=== PATIENT | female | born 1960 | race Caucasian/White ===

== ENCOUNTER → 2017-11-26 15:48 | Outpatient (REF) | payer OTHER, SELFPAY ==
[2017-11-26 20:55] LABS: COMMENT (LAB VIEW ONLY) 34.25 mg/dL; Microalb ug/mg Crea 10.5 ug/mg Cr
== END ==
LOC: LBN 15:48
PROVIDERS: PCP Nurse Practitioner; Visit Provider Nurse Practitioner
DX: E11.311 Type 2 diabetes mellitus with unspecified diabetic retinopathy with macular edema (principal); Z79.4 Long term (current) use of insulin
CPT/HCPCS: 82043; 82570

== ENCOUNTER 2017-12-10 02:09 | Outpatient (CLI) | payer OTHER, SELFPAY ==
--- NOTE | 2017-12-10 15:33 | DI.RAD_ITS ---
SYMPTOMS/DIAGNOSIS: F/U PNEUMONIA, J18.1 PA AND LATERAL CHEST: Comparison is made with November,. There has been interval decrease in size of the previously noted right lower lobe infiltrate. A density does persist in this area. No new abnormalities are seen. There is no evidence of an effusion. IMPRESSION: Decrease in size of right lower lobe infiltrate.
== END 2017-12-10 02:29 ==
PROVIDERS: PCP Nurse Practitioner; Visit Provider Nurse Practitioner
DX: J18.1 Lobar pneumonia, unspecified organism (principal)
CPT/HCPCS: 71046

== ENCOUNTER 2017-12-22 00:30 | Outpatient (CLI) | payer OTHER, SELFPAY ==
--- NOTE | 2017-12-22 12:40 | DI.RAD_ITS ---
SYMPTOMS/DIAGNOSIS: F/U PNEUMONIA, J18.1; RIGHT SHOULDER PAIN, M25.511 PA AND LATERAL CHEST: Substantial clearing of a region of infiltration in the right lower lobe is demonstrated. The remainder of the lung is unremarkable. The cardiovascular structures are intact. RIGHT SHOULDER: The glenohumeral joint appears intact. Minimal degenerative changes involving the AC joint are identified. The examination is otherwise unremarkable.
== END 2017-12-22 00:50 ==
PROVIDERS: PCP Nurse Practitioner; Visit Provider Nurse Practitioner
DX: J18.1 Lobar pneumonia, unspecified organism (principal); M25.511 Pain in right shoulder; M19.011 Primary osteoarthritis, right shoulder
CPT/HCPCS: 71046; 73030

== ENCOUNTER 2017-12-25 12:10 | Outpatient (CLI) | payer OTHER, SELFPAY ==
[2017-12-25 12:34] LABS: HCT 39.9 % (36.0-46.0); HGB 13.5 g/dL (12.0-15.5); Mean Corp. HGB Concentration 33.8 g/dL (32.0-36.0); Mean Corpuscular Hemoglobin 31.1 pg (27.0-33.0); Mean Corpuscular Volume 91.9 fL (80-95); Platelet Count 262 x1000/uL (130-400); RBC 4.34 m/cumm (4.00-5.20); White Blood Cell Count 5.95 k/cumm (4.4-10.8)
[2017-12-25 13:13] LABS: ALT 23 U/L (12-78); AST 22 U/L (15-37); Albumin 3.8 g/dL (3.4-5.0); Alkaline Phosphatase 169 U/L (46-116); BUN 8 mg/dL (7-18); Bilirubin, Total 0.4 mg/dL (0.2-1.0); CREATININE 0.96 mg/dL (0.55-1.02); Calcium 9.4 mg/dL (8.5-10.1); Chloride 99 mmol/L (98-107); Cholesterol 208 mg/dL (50-200); Glucose 219 mg/dL (70-100); HDL Cholesterol 103 mg/dL (40-60); LDL CHOLESTEROL 91 mg/dL (<100); Sodium 137 mmol/L (136-145); TSH (W/Ref FT4) 2.32 uIU/mL (0.358-3.74); Total Protein 6.9 g/dL (6.4-8.2); Triglyceride 68 mg/dL (30-150)
== END 2017-12-25 12:30 ==
PROVIDERS: PCP Nurse Practitioner; Visit Provider Nurse Practitioner
DX: E11.311 Type 2 diabetes mellitus with unspecified diabetic retinopathy with macular edema (principal); Z79.4 Long term (current) use of insulin; M35.1 Other overlap syndromes; Z13.220 Encounter for screening for lipoid disorders
CPT/HCPCS: 36415; 80053; 80061; 83721; 85027; 84443

== ENCOUNTER 2018-02-16 00:26 | Outpatient (CLI) | payer OTHER, SELFPAY ==
--- NOTE | 2018-02-16 10:25 | DI.MRI_ITS ---
SYMPTOMS/DIAGNOSIS: RIGHT SHOULDER PAIN, M25.511, DECREASED RANGE OF MOTION, NUMBNESS/TINGLING IN HAND MRI OF THE RIGHT SHOULDER: Routine noncontrast examination was performed. There is hyperintense T2 signal in the intrasubstance of the supraspinatus tendon at its insertion onto the greater tuberosity, consistent with a partial tear. The infraspinatus, teres minor and subscapularis tendons are intact. The rotator cuff muscles show normal signal and size. No evidence of muscular fatty atrophy is identified. The biceps tendon has a normal appearance and location. The glenoid labrum appears grossly unremarkable, as is the articular cartilage at the glenohumeral joint. The ligaments appear intact. There are mild hypertrophic changes seen at the acromioclavicular joint. No findings to suggest an occult fracture or avascular necrosis are seen. No evidence of a soft tissue mass or focal fluid collection is appreciated. IMPRESSION: Partial intrasubstance tear of the supraspinatus tendon at its insertion onto the greater tuberosity.
== END 2018-02-16 00:46 ==
PROVIDERS: PCP Nurse Practitioner; Visit Provider Physician Assistant
DX: M25.111 Fistula, right shoulder (principal); M75.101 Unspecified rotator cuff tear or rupture of right shoulder, not specified as traumatic
CPT/HCPCS: 73221

== ENCOUNTER 2018-05-03 16:00 | Emergency (ER) | payer OTHER, SELFPAY ==
[2018-05-03 16:14] VITALS: BP 125/70; PULSE 73; RESP 14; TEMP 37.2; O2SAT 97
--- NOTE | 2018-05-03 17:00 | NUR.NOTE ---
patient refused IV MD aware Nursing Note:
[2018-05-03] MEDS: Gabapentin 300 MG CAP PO (17:04)
[2018-05-03] MEDS: oxyCODONE 5 MG TAB PO (17:04)
--- NOTE | 2018-05-03 17:04 | NUR.NOTE ---
patient medicated per MD order Nursing Note:
[2018-05-03 17:06] LABS: Abs Immature Grans 0.02 k/cumm (0.0-0.09); Absolute Basophil Count 0.02 k/cumm (0.0-0.2); Absolute Eosinophil Count 0.05 k/cumm (0.0-0.7); Absolute Lymphocyte Count 1.89 k/cumm (1.2-3.4); Absolute Monocyte Count 0.78 k/cumm (0.11-0.7); Absolute Neutrophil Count 5.83 k/cumm (1.2-6.7); Basophils % 0.2; Eosinophils % 0.6; HCT 39.9 % (36.0-46.0); HGB 14.2 g/dL (12.0-15.5); Immature Grans % 0.2; Mean Corp. HGB Concentration 35.6 g/dL (32.0-36.0); Mean Corpuscular Hemoglobin 31.7 pg (27.0-33.0); Mean Corpuscular Volume 89.1 fL (80-95); Mean Platelet Volume 9.6 fL (8.0-11.0); Monocytes % 9.1; Neutrophils % 67.9; Platelet Count 238 x1000/uL (130-400); RBC 4.48 m/cumm (4.00-5.20); RBC Distribution Width 12.9 % (11.7-14.6); White Blood Cell Count 8.59 k/cumm (4.4-10.8)
--- NOTE | 2018-05-03 17:06 | W.ED.GENAD ---
Discharge Plan Disposition Patient Disposition: HOME Discharge Details Chief Complaint: RashLesion Clinical Impression: Herpes zoster, Hyperglycemia Primary Care Provider: Imelda Beckman ED Provider: Naveed Bose Home Meds and New Rx's Prescriptions: New gabapentin [Neurontin] 300 mg capsule 300 mg PO BID Qty: 14 RF: 0 lidocaine 5 % adhesive patch,medicated 1 patch TP DAILY Qty: 10 RF: 0 Continued Humalog KwikPen Insulin 100 unit/mL insulin pen See Rx Instructions subcut as directed Qty: 15 RF: 12 Lantus Solostar U-100 Insulin 100 unit/mL (3 mL) insulin pen See Rx Instructions subcut HS Qty: 30 RF: 4 Lac-Hydrin Five 5 % lotion 1 applic TP BID Qty: 226 RF: 0 valacyclovir 1 gram tablet 1,000 mg PO TID 7 Days Qty: 21 RF: 0 Glucagon Emergency Kit (human) 1 MG kit 1 mg IJ PRN PRNRF: 0 acetaminophen [Tylenol] 325 MG tablet 325 mg PO PRN RF: 0 aspirin [Aspir-81] 81 MG tablet,delayed release (DR/EC) 81 mg PO DAILY RF: 0 fexofenadine 180 MG tablet 180 mg PO BID RF: 0 Symbicort 10.2 GM HFA aerosol inhaler 2 puff Inhalation BID Qty: 3 RF: 3 pen needle, diabetic [Pen Needle] 1 EACH needle 1 ea Miscellaneous qid and hs Qty: 540 RF: 4 levothyroxine 125 MCG tablet 250 mcg PO DAILY Qty: 180 RF: 3 hydroxychloroquine [Plaquenil] 200 MG tablet 200 mg PO BID RF: 0 esomeprazole magnesium [Nexium] 20 MG capsule,delayed release(DR/EC) 20 mg PO DAILY RF: 0 ibuprofen [Advil] 200 MG tablet 200 mg PO PRN PRNRF: 0 simvastatin 20 MG tablet 20 mg PO DAILY Qty: 90 RF: 3 venlafaxine 37.5 MG capsule,extended release 24hr 37.5 mg PO DAILY Qty: 90 RF: 4 triamcinolone acetonide 15 GM ointment 1 ricardo Topical PRN PRNRF: 0 OneTouch Ultra Test strip 1 ea Miscellaneous 6 X A DAY Qty: 540 RF: 3 ProAir HFA 8.5 GM HFA aerosol inhaler 2 puff Inhalation Q6H PRN Qty: 3 RF: 3 epinephrine 0.3 MG/0.3 ML auto-injector 0.3 mg IJ ONCE PRN (Reason: Anaphylaxis) Qty: 1 RF: 0 Discharge Instructions Instructions: Shingles (ED), Diabetic Hyperglycemia (ED) Additional Instructions: Please contact your primary care physician to arrange follow-up. Return to the ER for any worsening or new concerning symptoms. Referrals: Imelda Beckman NP [Primary Care Provider] - Medical Decision Making 17:17 -- 58-year-old female here with shingles for the past week, on valtrex and having severe painful rash and generally not feeling well. Vitals within normal limits. I will place lidocaine patch more proximally over the affected dermatome and give a dose of oxycodone here for pain. Plan to add Neurontin to her treatment. Patient did have some nausea and vomiting recently and generally does not feel well. Rapid flu testing was negative. Plan to check screening labs to assess for electrolyte abnormalities. 18:15 -- Labs reviewed and nondiagnostic. Hyperglycemia and mild hyponatremia noted. Results reviewed with patient. Plan to continue valacyclovir, start Neurontin, have the patient follow-up with her primary care physician. I encouraged her return for any worsening or new concerning symptoms. Usual customary discharge instructions were provided. HPI General Mode of arrival: ambulatory. Date/Time Provider Initiated Documentation: 05/03/18 16:17. Limitations to Documentation: no limitations. Information obtained by: patient. HPI Narrative: There is a 58-year-old female with multiple medical problems including type 2 diabetes, here with chief complaint of shingles pain. Patient notes that she developed a rash about a week ago, she was seen by her PCP on 04/27/2018, diagnosed with herpes zoster and started on valacyclovir. She is been taking valacyclovir as prescribed. She notes that she continues to have severe pain in the area where the rash is located on her right flank. She is also had some chills and is generally not feeling well. It is severe. No modifiers. Related Data Home Medications Medication Instructions Recorded Confirmed Glucagon Emergency Kit (human) 1 mg IJ PRN PRN kit 06/29/12 05/03/18 acetaminophen [Tylenol] 325 mg PO PRN 06/29/12 05/03/18 aspirin [Aspir-81] 81 mg PO DAILY tab 06/29/12 05/03/18 Symbicort 2 puff INHALATION BID #3 inhaler 07/21/14 05/03/18 fexofenadine 180 mg PO BID 07/21/14 05/03/18 pen needle, diabetic [Pen Needle] #540 ndl 04/30/16 04/27/18 levothyroxine 250 mcg PO DAILY #180 tab-cap 06/12/16 05/03/18 ProAir HFA 2 puff INHALATION Q6H PRN #3 08/15/16 05/03/18 inhaler epinephrine 0.3 mg IJ ONCE PRN #1 auto.injct 02/07/17 05/03/18 hydroxychloroquine [Plaquenil] 200 mg PO BID 02/17/17 05/03/18 esomeprazole magnesium [Nexium] 20 mg PO DAILY tab-cap 04/30/17 05/03/18 ibuprofen [Advil] 200 mg PO PRN PRN 05/01/17 05/03/18 simvastatin 20 mg PO DAILY #90 tab 07/01/17 05/03/18 venlafaxine 37.5 mg PO DAILY #90 tab-cap 07/28/17 05/03/18 triamcinolone acetonide 1 ricardo TOPICAL PRN PRN gm 10/29/17 05/03/18 LS9 Ultra Test strips #540 strip NS 12/29/17 04/27/18 insulin glargine (U-100) 100 See Rx Instructions SUBCUT HS #30 03/04/18 05/03/18 unit/mL (3 mL) subcutaneous pen ml insulin lispro (U- 100) 100 See Rx Instructions SUBCUT as 03/04/18 05/03/18 unit/mL subcutaneous pen directed #15 ml ammonium lactate 5 % lotion 1 applic TP BID #226 gm 04/21/18 05/03/18 valacyclovir 1 gram tablet 1,000 mg PO TID 7 Days #21 tab 04/27/18 05/03/18 gabapentin [Neurontin] 300 mg PO BID #14 cap 05/03/18 lidocaine 1 patch TP DAILY #10 each 05/03/18 Previous Rx's Medication Instructions Recorded ProAir HFA 2 puff INHALATION Q6H PRN #3 08/15/16 inhaler epinephrine 0.3 mg IJ ONCE PRN #1 auto.injct 02/07/17 simvastatin 20 mg PO DAILY #90 tab 07/01/17 venlafaxine 37.5 mg PO DAILY #90 tab-cap 07/28/17 OneTouch Ultra Test strips #540 strip NS 12/29/17 insulin glargine (U-100) 100 See Rx Instructions SUBCUT HS #30 03/04/18 unit/mL (3 mL) subcutaneous pen ml insulin lispro (U- 100) 100 See Rx Instructions SUBCUT as 03/04/18 unit/mL subcutaneous pen directed #15 ml ammonium lactate 5 % lotion 1 applic TP BID #226 gm 04/21/18 valacyclovir 1 gram tablet 1,000 mg PO TID 7 Days #21 tab 04/27/18 gabapentin [Neurontin] 300 mg PO BID #14 cap 05/03/18 lidocaine 1 patch TP DAILY #10 each 05/03/18 Allergies Allergy/AdvReac Type Severity Reaction Status Date / Time hydroxychloroquine Allergy Unknown hives-01/23 Verified 04/21/18 12:34 17 Penicillins Allergy Unknown Hives Verified 04/21/18 12:34 General Stated Complaint: RashLesion BRIANNA: 3 Review of Systems Review of Systems All systems reviewed & are unremarkable except as noted in HPI and below Respiratory Reports cough (mild) Integumentary/Breasts Reports rash (rt flank) [facility] Medical History Tension headache (Chronic 08/05/12) Diabetes mellitus type 1 Hypothyroidism Lung fungal infection Menopausal hot flushes Tobacco use Surgical History Biopsy, Soft Tissue (12/10/16) Carpal tunnel release, R, 2010 EGD w/ BX (04/17/17) Ligation of fallopian tube Partial thyroidectomy R knee surgery at child; Vonda R lung biopsy/granuloma Tonsillectomy Tooth extraction (~2014) Vaginal hysterectomy (~2002) laryngoscopy (08/09/12) Family History Mother Mental disorder Aneurysm Sister Osteoarthritis Maternal Grandfather Personal history of malignant neoplasm Social History adopted: No foster care: No lives independently: Yes number of children: 3 current occupational status: employed current occupation: [employer] frequency: 5-6 times per week duration: 30-45 minutes/day Smoking/Tobacco Use Status: Current every day tobacco type: cigarettes alcohol intake: current alcohol intake frequency: a few times a week substance use type: does not use Exam Const General: cooperative, uncomfortable and no acute distress Orientation: alert HENNY Head: normocephalic and atraumatic Mouth: moist mucous membranes Eyes Conjunctivae: normal conjunctivae Sclera: normal sclerae Neck Neck: no JVD Resp Auscultation: clear to auscultation bilaterally, no rales, no rhonchi and no wheezes Cardio Jugular venous pressure: no JVD Rate: regular rate and not tachycardic Rhythm: regular rhythm GI Palpation: soft, not firm, no guarding, no masses, not rigid and nontender Skin General skin exam: no erythema and no induration Rashes: rashes noted (Red vesicular rash with shallow ulcers right flank T11 dermatome) Neuro General: alert, awake, oriented x3 and tone normal Extrem General: no edema Psych Appearance: grossly normal Mental Status: mental status grossly normal Speech and Movement: speech and movement normal Course Vital Signs Temperature 37.2 C 05/03/18 16:14 Pulse 73 05/03/18 16:14 Respiratory Rate 14 05/03/18 16:14 Blood Pressure 125/70 05/03/18 16:14 Pulse Oximetry 97 05/03/18 16:14 Temperature 37.2 C 05/03/18 16:14 Temperature Source Temporal Artery Scan 05/03/18 16:14 Pulse 73 05/03/18 16:14 Respiratory Rate 14 05/03/18 16:14 Blood Pressure 125/70 05/03/18 16:14 Pulse Oximetry 97 05/03/18 16:14 Oxygen Delivery Method Room Air 05/03/18 16:14 Oxygen Flow Rate 0 05/03/18 16:14 Pain Level 8 05/03/18 16:14 Lab/Test Results Lab/Test Results: 05/03/18 16:19 Nasopharynx Influenza Types A,B Antigen - Final
[2018-05-03] MEDS: Lidocaine 5% Patch 1 PATCH TP (17:15)
--- NOTE | 2018-05-03 17:18 | ED.GENADUL_ITS ---
Discharge Plan Disposition Patient Disposition: HOME Discharge Details Chief Complaint: RashLesion Clinical Impression: Herpes zoster, Hyperglycemia Primary Care Provider: Imelda Beckman ED Provider: Naveed Bose Home Meds and New Rx's Prescriptions: New gabapentin [Neurontin] 300 mg capsule 300 mg PO BID Qty: 14 RF: 0 lidocaine 5 % adhesive patch,medicated 1 patch TP DAILY Qty: 10 RF: 0 Continued Humalog KwikPen Insulin 100 unit/mL insulin pen See Rx Instructions subcut as directed Qty: 15 RF: 12 Lantus Solostar U-100 Insulin 100 unit/mL (3 mL) insulin pen See Rx Instructions subcut HS Qty: 30 RF: 4 Lac-Hydrin Five 5 % lotion 1 applic TP BID Qty: 226 RF: 0 valacyclovir 1 gram tablet 1,000 mg PO TID 7 Days Qty: 21 RF: 0 Glucagon Emergency Kit (human) 1 MG kit 1 mg IJ PRN PRNRF: 0 acetaminophen [Tylenol] 325 MG tablet 325 mg PO PRN RF: 0 aspirin [Aspir-81] 81 MG tablet,delayed release (DR/EC) 81 mg PO DAILY RF: 0 fexofenadine 180 MG tablet 180 mg PO BID RF: 0 Symbicort 10.2 GM HFA aerosol inhaler 2 puff Inhalation BID Qty: 3 RF: 3 pen needle, diabetic [Pen Needle] 1 EACH needle 1 ea Miscellaneous qid and hs Qty: 540 RF: 4 levothyroxine 125 MCG tablet 250 mcg PO DAILY Qty: 180 RF: 3 hydroxychloroquine [Plaquenil] 200 MG tablet 200 mg PO BID RF: 0 esomeprazole magnesium [Nexium] 20 MG capsule,delayed release(DR/EC) 20 mg PO DAILY RF: 0 ibuprofen [Advil] 200 MG tablet 200 mg PO PRN PRNRF: 0 simvastatin 20 MG tablet 20 mg PO DAILY Qty: 90 RF: 3 venlafaxine 37.5 MG capsule,extended release 24hr 37.5 mg PO DAILY Qty: 90 RF: 4 triamcinolone acetonide 15 GM ointment 1 ricardo Topical PRN PRNRF: 0 OneTouch Ultra Test strip 1 ea Miscellaneous 6 X A DAY Qty: 540 RF: 3 ProAir HFA 8.5 GM HFA aerosol inhaler 2 puff Inhalation Q6H PRN Qty: 3 RF: 3 epinephrine 0.3 MG/0.3 ML auto-injector 0.3 mg IJ ONCE PRN (Reason: Anaphylaxis) Qty: 1 RF: 0 Discharge Instructions Instructions: Shingles (ED), Diabetic Hyperglycemia (ED) Additional Instructions: Please contact your primary care physician to arrange follow-up. Return to the ER for any worsening or new concerning symptoms. Referrals: Imelda Beckman NP [Primary Care Provider] - Medical Decision Making 17:17 -- 58-year-old female here with shingles for the past week, on valtrex and having severe painful rash and generally not feeling well. Vitals within normal limits. I will place lidocaine patch more proximally over the affected dermatome and give a dose of oxycodone here for pain. Plan to add Neurontin to her treatment. Patient did have some nausea and vomiting recently and generally does not feel well. Rapid flu testing was negative. Plan to check screening labs to assess for electrolyte abnormalities. 18:15 -- Labs reviewed and nondiagnostic. Hyperglycemia and mild hyponatremia noted. Results reviewed with patient. Plan to continue valacyclovir, start Neurontin, have the patient follow-up with her primary care physician. I encouraged her return for any worsening or new concerning symptoms. Usual customary discharge instructions were provided. HPI General Mode of arrival: ambulatory . Date/Time Provider Initiated Documentation: 05/03/18 16:17 . Limitations to Documentation: no limitations . Information obtained by: patient . HPI Narrative: There is a 58-year-old female with multiple medical problems including type 2 diabetes, here with chief complaint of shingles pain. Patient notes that she developed a rash about a week ago, she was seen by her PCP on 04/27/2018, diagnosed with herpes zoster and started on valacyclovir. She is been taking valacyclovir as prescribed. She notes that she continues to have severe pain in the area where the rash is located on her right flank. She is also had some chills and is generally not feeling well. It is severe. No modifiers. Related Data Home Medications Medication Instructions Recorded Confirmed Glucagon Emergency Kit (human) 1 mg IJ PRN PRN kit 06/29/12 05/03/18 acetaminophen [Tylenol] 325 mg PO PRN 06/29/12 05/03/18 aspirin [Aspir-81] 81 mg PO DAILY tab 06/29/12 05/03/18 Symbicort 2 puff INHALATION BID #3 inhaler 07/21/14 05/03/18 fexofenadine 180 mg PO BID 07/21/14 05/03/18 pen needle, diabetic [Pen Needle] #540 ndl 04/30/16 04/27/18 levothyroxine 250 mcg PO DAILY #180 tab-cap 06/12/16 05/03/18 ProAir HFA 2 puff INHALATION Q6H PRN #3 08/15/16 05/03/18 inhaler epinephrine 0.3 mg IJ ONCE PRN #1 auto.injct 02/07/17 05/03/18 hydroxychloroquine [Plaquenil] 200 mg PO BID 02/17/17 05/03/18 esomeprazole magnesium [Nexium] 20 mg PO DAILY tab-cap 04/30/17 05/03/18 ibuprofen [Advil] 200 mg PO PRN PRN 05/01/17 05/03/18 simvastatin 20 mg PO DAILY #90 tab 07/01/17 05/03/18 venlafaxine 37.5 mg PO DAILY #90 tab-cap 07/28/17 05/03/18 triamcinolone acetonide 1 ricardo TOPICAL PRN PRN gm 10/29/17 05/03/18 [employer] Ultra Test strips #540 strip NS 12/29/17 04/27/18 insulin glargine (U-100) 100 See Rx Instructions SUBCUT HS #30 03/04/18 05/03/18 unit/mL (3 mL) subcutaneous pen ml insulin lispro (U- 100) 100 See Rx Instructions SUBCUT as 03/04/18 05/03/18 unit/mL subcutaneous pen directed #15 ml ammonium lactate 5 % lotion 1 applic TP BID #226 gm 04/21/18 05/03/18 valacyclovir 1 gram tablet 1,000 mg PO TID 7 Days #21 tab 04/27/18 05/03/18 gabapentin [Neurontin] 300 mg PO BID #14 cap 05/03/18 lidocaine 1 patch TP DAILY #10 each 05/03/18 Previous Rx's Medication Instructions Recorded ProAir HFA 2 puff INHALATION Q6H PRN #3 08/15/16 inhaler epinephrine 0.3 mg IJ ONCE PRN #1 auto.injct 02/07/17 simvastatin 20 mg PO DAILY #90 tab 07/01/17 venlafaxine 37.5 mg PO DAILY #90 tab-cap 07/28/17 OneTouch Ultra Test strips #540 strip NS 12/29/17 insulin glargine (U-100) 100 See Rx Instructions SUBCUT HS #30 03/04/18 unit/mL (3 mL) subcutaneous pen ml insulin lispro (U- 100) 100 See Rx Instructions SUBCUT as 03/04/18 unit/mL subcutaneous pen directed #15 ml ammonium lactate 5 % lotion 1 applic TP BID #226 gm 04/21/18 valacyclovir 1 gram tablet 1,000 mg PO TID 7 Days #21 tab 04/27/18 gabapentin [Neurontin] 300 mg PO BID #14 cap 05/03/18 lidocaine 1 patch TP DAILY #10 each 05/03/18 Allergies Allergy/AdvReac Type Severity Reaction Status Date / Time hydroxychloroquine Allergy Unknown hives-01/23 Verified 04/21/18 12:34 17 Penicillins Allergy Unknown Hives Verified 04/21/18 12:34 General Stated Complaint: RashLesion BRIANNA: 3 Review of Systems Review of Systems All systems reviewed & are unremarkable except as noted in HPI and below Respiratory Reports cough (mild) Integumentary/Breasts Reports rash (rt flank) [facility] Medical History Tension headache (Chronic 08/05/12) Diabetes mellitus type 1 Hypothyroidism Lung fungal infection Menopausal hot flushes Tobacco use Surgical History Biopsy, Soft Tissue (12/10/16) Carpal tunnel release, R, 2010 EGD w/ BX (04/17/17) Ligation of fallopian tube Partial thyroidectomy R knee surgery at child; Vonda R lung biopsy/granuloma Tonsillectomy Tooth extraction (~2014) Vaginal hysterectomy (~2002) laryngoscopy (08/09/12) Family History Mother Mental disorder Aneurysm Sister Osteoarthritis Maternal Grandfather Personal history of malignant neoplasm Social History adopted: No foster care: No lives independently: Yes number of children: 3 current occupational status: employed current occupation: [employer] frequency: 5-6 times per week duration: 30-45 minutes/day Smoking/Tobacco Use Status: Current every day tobacco type: cigarettes alcohol intake: current alcohol intake frequency: a few times a week substance use type: does not use Exam Const General: cooperative, uncomfortable and no acute distress Orientation: alert HENME Head: normocephalic and atraumatic Mouth: moist mucous membranes Eyes Conjunctivae: normal conjunctivae Sclera: normal sclerae Neck Neck: no JVD Resp Auscultation: clear to auscultation bilaterally, no rales, no rhonchi and no wheezes Cardio Jugular venous pressure: no JVD Rate: regular rate and not tachycardic Rhythm: regular rhythm GI Palpation: soft, not firm, no guarding, no masses, not rigid and nontender Skin General skin exam: no erythema and no induration Rashes: rashes noted (Red vesicular rash with shallow ulcers right flank T11 dermatome) Neuro General: alert, awake, oriented x3 and tone normal Extrem General: no edema Psych Appearance: grossly normal Mental Status: mental status grossly normal Speech and Movement: speech and movement normal Course Vital Signs Temperature 37.2 C 05/03/18 16:14 Pulse 73 05/03/18 16:14 Respiratory Rate 14 05/03/18 16:14 Blood Pressure 125/70 05/03/18 16:14 Pulse Oximetry 97 05/03/18 16:14 Temperature 37.2 C 05/03/18 16:14 Temperature Source Temporal Artery Scan 05/03/18 16:14 Pulse 73 05/03/18 16:14 Respiratory Rate 14 05/03/18 16:14 Blood Pressure 125/70 05/03/18 16:14 Pulse Oximetry 97 05/03/18 16:14 Oxygen Delivery Method Room Air 05/03/18 16:14 Oxygen Flow Rate 0 05/03/18 16:14 Pain Level 8 05/03/18 16:14 Lab/Test Results Lab/Test Results: 05/03/18 16:19 Nasopharynx Influenza Types A,B Antigen - Final
[2018-05-03 17:19] LABS: ALT 22 U/L (12-78); AST 19 U/L (15-37); Albumin 3.8 g/dL (3.4-5.0); Alkaline Phosphatase 167 U/L (46-116); Anion Gap 9.8 mmol/L (3-11); BUN 14 mg/dL (7-18); Bilirubin, Total 0.4 mg/dL (0.2-1.0); CO2 27.2 mmol/L (21.0-32.0); CREATININE 1.11 mg/dL (0.55-1.02); Calcium 9.2 mg/dL (8.5-10.1); Chloride 94 mmol/L (98-107); Estimated GFR 50.85 (mL/min/1.73m2); Glucose 285 mg/dL (70-100); Potassium 4.1 mmol/L (3.5-5.1); Sodium 131 mmol/L (136-145); Total Protein 7.1 g/dL (6.4-8.2)
[2018-05-03 17:28] LABS: Prothrombin Time 9.8 sec (9.3-11.0)
== END 2018-05-03 19:13 | disposition home or self-care (01) ==
PROVIDERS: Emergency Provider Student in an Organized Health Care Education/Training Program; PCP Nurse Practitioner
DX: B02.9 Zoster without complications (principal); E10.65 Type 1 diabetes mellitus with hyperglycemia; E87.1 Hypo-osmolality and hyponatremia
CPT/HCPCS: 36415; 80053; 87449; 99283; 85025; 85610

== ENCOUNTER 2018-08-23 01:31 | Outpatient (CLI) | payer OTHER, SELFPAY ==
--- NOTE | 2018-08-23 10:30 | DI.MAMMO_ITS ---
SYMPTOM/DIAGNOSIS: SCREENING, Z12.31 MAMMOGRAMS: Mammograms were interpreted according to the usual protocol including computer analysis with CAD system, tomosynthesis and C view imaging. Comparison is made with exams from [id number]. The breasts are composed of scattered fibroglandular densities, breast density, Category B. Coarse calcifications are again noted in the upper outer right breast. No suspicious masses or suspicious microcalcifications are seen. There has been no significant change. IMPRESSION: Category 2, negative mammogram with benign findings. Yearly screening mammography is recommended. MQSA ASSESSMENT OF FINDINGS: Negative with benign findings. Category 2. Patient will receive a letter notifying them of these results. BI-RADS category B. There are scattered areas of fibroglandular density.
== END 2018-08-23 01:51 ==
PROVIDERS: PCP Nurse Practitioner; Visit Provider Obstetrics & Gynecology Gynecology
DX: Z12.31 Encounter for screening mammogram for malignant neoplasm of breast (principal)
CPT/HCPCS: 77063; 77067

== ENCOUNTER 2018-12-15 00:48 | Outpatient (CLI) | payer OTHER, SELFPAY ==
--- NOTE | 2018-12-15 13:17 | DI.US_ITS ---
SYMPTOMS/DIAGNOSIS: LYMPH NODE TENDERNESS, RIGHT AXILLA, FOR 3 WEEKS, MIXED CONNECTIVE TISSUE DISEASE, PAIN IN RIGHT AXILLA, M35.1, M79.621 ULTRASOUND OF THE RIGHT AXILLA: There are severe lymph nodes visible in the right axilla, one measuring 1.3 cm x 0.8 x 4.4 cm. There is a small rim of hypoechoic parenchyma and a fatty hilum. Other smaller nodes are seen. No suspicious-appearing nodes are identified. IMPRESSION: Right axillary lymph nodes have a normal appearance.
== END 2018-12-15 01:08 ==
PROVIDERS: PCP Nurse Practitioner; Visit Provider Nurse Practitioner
DX: M35.1 Other overlap syndromes (principal); M79.621 Pain in right upper arm; R59.0 Localized enlarged lymph nodes
CPT/HCPCS: 76642

== ENCOUNTER 2018-12-27 10:00 | Outpatient (CLI) | payer OTHER, SELFPAY ==
--- NOTE | 2018-12-27 15:00 | DIABASSESS_ITS ---
DESCRIPTION/ASSESSMENT: Jill Oneal presents for diabetes self management for guidance on using the Dexcom G6. INTERVENTION: Set up auger press operator and initated the G6. Jill is able to apply the G6 device without difficulty. The auger press operator was linked to the sensor and transmitter. She has no unaswered questions. ACTION PLAN:She will call with any further questions. Individual DSME/T __0__ units billed TIME 20 minutes face to face No DM group education series being offered at this time.
== END 2018-12-27 10:20 ==
PROVIDERS: PCP Nurse Practitioner; Visit Provider Dietitian, Registered
DX: E11.9 Type 2 diabetes mellitus without complications (principal); Z79.4 Long term (current) use of insulin; Z71.3 Dietary counseling and surveillance

== ENCOUNTER 2019-01-26 15:21 | Outpatient (CLI) | payer OTHER, SELFPAY ==
[2019-01-26 17:24] LABS: Uric Acid 4.5 mg/dL (2.6-6.0)
== END 2019-01-26 15:41 ==
LOC: LBN 15:23 → LBO 15:27
PROVIDERS: PCP Nurse Practitioner; Visit Provider Nurse Practitioner
DX: M79.675 Pain in left toe(s) (principal)
CPT/HCPCS: 36415; 84550

== ENCOUNTER 2019-01-27 09:50 | Outpatient (CLI) | payer OTHER, SELFPAY ==
--- NOTE | 2019-01-27 14:00 | DI.RAD_ITS ---
EXAM: XR TOE LT GREAT CLINICAL HISTORY: Pain, swelling first MTP, M79.675 PAIN, M35.1 OVERLAP SYNDROME TECHNIQUE: Three views of great toe were obtained. COMPARISON: No exams were available for comparison FINDINGS: There is mild soft tissue swelling of the great toe. There is a prominent marginal osteophyte of the medial aspect of base of the distal phalanx. There is mild cartilaginous joint space narrowing of t he IP joints of the foot. There is an incompletely visualized calcific or ossific radiodensity seen just proximal to the sesamo id bones of the 1st metatarsal head. This finding could be associated with inflammatory process. Th e MTP articulation appears intact.
== END 2019-01-27 10:10 ==
PROVIDERS: PCP Nurse Practitioner; Visit Provider Nurse Practitioner
DX: M79.675 Pain in left toe(s) (principal); R22.42 Localized swelling, mass and lump, left lower limb; M35.1 Other overlap syndromes; M79.89 Other specified soft tissue disorders
CPT/HCPCS: 73660

== ENCOUNTER 2019-04-21 16:14 | Emergency (ER) | payer OTHER, SELFPAY ==
[2019-04-21 16:15] VITALS: BP 145/63; PULSE 69; RESP 16; TEMP 36.5; O2SAT 100
--- NOTE | 2019-04-21 16:33 | ED.GENADUL_ITS ---
Discharge Plan Disposition Patient Disposition: HOME Condition: Stable Discharge Details Chief Complaint: Orthopedic Clinical Impression: Fall, Hamstring muscle strain Primary Care Provider: Imelda Beckman ED Provider: Blanca Milton Home Meds and New Rx's Prescriptions: New tramadol 50 mg tablet 50 mg PO BID PRN (Reason: muscle pain) 3 Days Qty: 6 RF: 0 Continued insulin lispro [Humalog KwikPen Insulin] 100 unit/mL insulin pen See Rx Instructions subcut as directed Qty: 15 RF: 12 nystatin 100,000 unit/gram cream 1 applic TP TID Qty: 15 RF: 1 simvastatin 20 mg tablet 20 mg PO DAILY Qty: 90 RF: 3 Lac-Hydrin Five 5 % lotion 1 applic TP BID Qty: 226 RF: 0 triamcinolone acetonide 0.1 % cream 1 applic TP DAILY Qty: 30 RF: 0 (DME) pen needle, diabetic [Pen Needle] 31 gauge x 5/16 needle 1 ea Miscellaneous qid and hs Qty: 540 RF: 3 Lantus Solostar U-100 Insulin 100 unit/mL (3 mL) insulin pen See Rx Instructions subcut HS RF: 0 prednisone 20 mg tablet 40 mg PO DAILY Qty: 10 RF: 0 Glucagon Emergency Kit (human) 1 MG kit 1 mg IJ PRN PRNRF: 0 acetaminophen [Tylenol] 325 MG tablet 325 mg PO PRN RF: 0 aspirin [Aspir-81] 81 MG tablet,delayed release (DR/EC) 81 mg PO DAILY RF: 0 fexofenadine 180 MG tablet 180 mg PO BID RF: 0 hydroxychloroquine [Plaquenil] 200 MG tablet 200 mg PO BID RF: 0 esomeprazole magnesium [Nexium] 20 MG capsule,delayed release(DR/EC) 20 mg PO DAILY RF: 0 (DME) OneTouch Ultra Test strip 1 ea Miscellaneous 6 X A DAY Qty: 540 RF: 3 levothyroxine 125 mcg tablet 125 mcg PO DAILY Qty: 180 RF: 3 venlafaxine 37.5 mg capsule,extended release 24hr 37.5 mg PO DAILY Qty: 90 RF: 4 Symbicort 80-4.5 mcg/actuation HFA aerosol inhaler 2 puff Inhalation BID Qty: 3 RF: 3 ibuprofen 800 mg tablet 800 mg PO TID Qty: 90 RF: 3 albuterol sulfate [ProAir HFA] 8.5 GM HFA aerosol inhaler 2 puff Inhalation Q6H PRN Qty: 3 RF: 3 epinephrine 0.3 MG/0.3 ML auto-injector 0.3 mg IJ ONCE PRN (Reason: Anaphylaxis) Qty: 1 RF: 0 Discharge Instructions Instructions: Muscle Strain (ED) Additional Instructions: Follow up with PCP in 3-5 days if needed. Rest, Ice, Compression, and elevation. Stay off as much as possible. Take Tylenol as needed for pain and swelling. Return to ED for any worsening or concerns. Referrals: Imelda Beckman NP [Primary Care Provider] - Medical Decision Making 59 year old female presents with left thigh, hip, and knee pain after slip and fall at 1330 this afternoon. Patient states she was unable to get up after fall. Has not been weight bearing after fall. Increased pain with posterior thigh palpation. No rotation, shortening, or deformity. CMS intact. X-Rays of Hip and knee performed and are unremarkable: See below. PROCEDURE INFORMATION: Exam: XR Left Knee Exam date and time: 04/21/2019 5:08 PM Age: 59 years old Clinical indication: Pain; Knee; Left TECHNIQUE: Imaging protocol: XR Left knee. Views: 3 views. COMPARISON: No relevant prior studies available. FINDINGS: Bones/joints: Unremarkable. Soft tissues: Unremarkable. IMPRESSION: No evidence for acute bony injury. If clinical symptoms persist recommend followup film in 7-10 days PROCEDURE INFORMATION: Exam: XR Left Hip with Pelvis when Performed Exam date and time: 04/21/2019 5:08 PM Age: 59 years old Clinical indication: Hip pain; Left hip TECHNIQUE: Imaging protocol: XR Left hip with pelvis when performed. Views: 2 or 3 views. COMPARISON: CR PELVIS WITH OBLIQUES 3 VIEWS 02/14/2015 13:19 FINDINGS: Bones/joints: Unremarkable. No acute fracture. Soft tissues: Unremarkable. IMPRESSION: No acute findings. If clinical symptoms persist recommend followup film in 7-10 days. Patient was given Oxycodone in department and [facility]etta ODT. Plan to apply rai wrap and give crutches if tolerated. Differential Diagnosis Differential Diagnosis: occult fracture, ligament strain, dislocation HPI General Date/Time Provider Initiated Documentation: 04/21/19 16:23 . History of Present Illness 59 year old F presents to the emergency department with the chief complaint of leg pain, fall, described as moderate, with intensity rated at 5. Quality is described as dull, and is localized to the lower extremity. Patient started experiencing this hour(s) (3) and it has been intermittent. Immobilization improves symptom(s), Movement worsens symptoms and Other factors that worsen symptoms (Weight bearing) . Patient notes no other symptoms.; denies confusion and weakness. Patient did receive the following treatments prior to arrival, none (Fentanyl per EMS) HPI Narrative: 59 year old female presents with left hip and knee pain after a slip and fall today at 1330. No LOC, no head or back pain. Related Data Home Medications Medication Instructions Recorded Confirmed Glucagon Emergency Kit (human) 1 mg IJ PRN PRN kit 06/29/12 03/10/19 acetaminophen [Tylenol] 325 mg PO PRN 06/29/12 03/10/19 aspirin [Aspir-81] 81 mg PO DAILY tab 06/29/12 03/10/19 fexofenadine 180 mg PO BID 07/21/14 03/10/19 albuterol sulfate [ProAir HFA] 2 puff INHALATION Q6H PRN #3 08/15/16 03/10/19 inhaler epinephrine 0.3 mg IJ ONCE PRN #1 auto.injct 02/07/17 03/10/19 hydroxychloroquine [Plaquenil] 200 mg PO BID 02/17/17 03/10/19 esomeprazole magnesium [Nexium] 20 mg PO DAILY tab-cap 04/30/17 03/10/19 OneTouch Ultra Test #540 strip NS 12/29/17 03/10/19 insulin lispro 100 unit/mL See Rx Instructions SUBCUT as 03/04/18 03/10/19 subcutaneous pen directed #15 ml ammonium lactate 5 % lotion 1 applic TP BID #226 gm 04/21/18 03/10/19 nystatin 100,000 unit/gram topical 1 applic TP TID #15 gm 06/07/18 03/10/19 cream simvastatin 20 mg tablet 20 mg PO DAILY #90 tab 06/07/18 03/10/19 levothyroxine 125 mcg tablet 125 mcg PO DAILY #180 tab-cap 09/06/18 03/10/19 venlafaxine 37.5 mg 37.5 mg PO DAILY #90 tab-cap 10/25/18 03/10/19 capsule,extended release 24 hr pen needle, diabetic 31 gauge x #540 ndl 11/24/18 03/10/1908/19 triamcinolone acetonide 0.1 % 1 applic TP DAILY #30 gm 11/24/18 03/10/19 topical cream budesonide-formoterol HFA 80 2 puff INHALATION BID #3 inhaler 12/14/18 03/10/19 mcg-4.5 mcg/actuation aerosol inhaler insulin glargine 100 unit/mL (3 See Rx Instructions SUBCUT HS ml 12/14/18 03/10/19 mL) subcutaneous pen ibuprofen 800 mg tablet 800 mg PO TID #90 tab 12/20/18 03/10/19 prednisone 20 mg tablet 40 mg PO DAILY #10 tab 01/26/19 03/10/19 tramadol 50 mg PO BID PRN 3 Days #6 tab 04/21/19 Previous Rx's Medication Instructions Recorded albuterol sulfate [ProAir HFA] 2 puff INHALATION Q6H PRN #3 08/15/16 inhaler epinephrine 0.3 mg IJ ONCE PRN #1 auto.injct 02/07/17 StartSamplingTouch Ultra Test #540 strip NS 12/29/17 insulin lispro 100 unit/mL See Rx Instructions SUBCUT as 03/04/18 subcutaneous pen directed #15 ml ammonium lactate 5 % lotion 1 applic TP BID #226 gm 04/21/18 nystatin 100,000 unit/gram topical 1 applic TP TID #15 gm 06/07/18 cream simvastatin 20 mg tablet 20 mg PO DAILY #90 tab 06/07/18 venlafaxine 37.5 mg 37.5 mg PO DAILY #90 tab-cap 10/25/18 capsule,extended release 24 hr pen needle, diabetic 31 gauge x #540 ndl 11/24/1808/19 triamcinolone acetonide 0.1 % 1 applic TP DAILY #30 gm 11/24/18 topical cream ibuprofen 800 mg tablet 800 mg PO TID #90 tab 12/20/18 prednisone 20 mg tablet 40 mg PO DAILY #10 tab 01/26/19 tramadol 50 mg PO BID PRN 3 Days #6 tab 04/21/19 Allergies Allergy/AdvReac Type Severity Reaction Status Date / Time hydroxychloroquine Allergy Severe hives-10/20 Verified 04/21/19 16:18 17 Penicillins Allergy Intermediate Hives Verified 04/21/19 16:18 gabapentin [From Neurontin] AdvReac Severe Pt. states Verified 04/21/19 16:18 medication messed up her head. General Stated Complaint: Orthopedic BRIANNA: 3 Review of Systems All systems reviewed & are unremarkable except as noted in HPI and below Constitutional Constitutional: Denies body ache(s) ENT Ears, Nose, Mouth, and Throat: Denies neck pain Cardiovascular Cardiovascular: Reports system reviewed and no additional complaints, except as docu Respiratory Respiratory: Reports system reviewed and no additional complaints, except as docu Musculoskeletal Musculoskeletal: Denies deformity, Denies joint swelling, Reports limited range of motion, Denies neck pain and Reports other (Left posterior thigh pain increases with movement. No ecchymosis, ) Comments: Left posterior hip and knee pain [facility] Medical History Actinic keratosis (Chronic 01/22/17) Alcohol abuse (Chronic) Atherosclerosis of aorta (Chronic 04/14/13) Seen on L-spine x-ray 2012 No aneurysm Larsen esophagus (Acute) Larsen's esophagus determined by biopsy (Chronic 04/25/17) Carpal tunnel syndrome of left wrist (Chronic 03/26/16) Cervicalgia (Chronic 08/05/12) myofascial syndrome; has limited ROM (flex and ext) Chronic idiopathic urticaria (Acute 09/13/14) 07/2014. [place] [facility] [place] and antihistamines. Seeing bedspread seamer. Gastroparesis (Acute) Hyperlipidemia (Chronic 01/05/13) Statin Hypothyroidism (Chronic) Lung fungal infection (Inactive) 04/1999 R lung wedge resection Lupus (Acute) Diagnosed 2017. Maculopathy (Acute 03/12/17) secondary to Plaquenil use OU, [facility] Menopausal hot flushes (Chronic) Onset 2010. stopped ERT 2017. Rx with venlafaxine with satisfactory results. Nonproliferative diabetic retinopathy (Chronic 08/05/12) Mild as noted by [facility]. Right rotator cuff tendinitis (Resolved) MRI with probable partial tear of supraspinatus Shingles (Acute) 2018. 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 Mullins Ligation of fallopian tube (Resolved) Partial thyroidectomy (Resolved) R knee surgery at child; Vonda (Resolved) R lung biopsy/granuloma (Resolved) Tonsillectomy (Resolved) Tooth extraction (Resolved ~2014) 14 Teeth Extracted, dentures October 2014 Vaginal hysterectomy (Resolved ~2002) with unilateral R oophorectomy. Family History Mother Mental disorder Anxiety on Lorazepam Aneurysm Sister Osteoarthritis Severe; thumb rebuilt and elbow Maternal Grandfather , Colon cancer Personal history of malignant neoplasm Social History Smoking/Tobacco Use Status: Current every day Quit status: not considering quitting Counseling given: provider counseling Alcohol Intake: current Alcohol Intake frequency: 0-2 drinks per day Alcohol type: beer Drug use: Never Substance use type: does not use Adopted: No Foster care: No Household members: spouse and other Details: H-Ed. 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 What type of physical activity do you participate in: walking Duration: 30-45 minutes/day Frequency: 5-6 times per week Do you feel safe at home: Yes Do you feel safe in your relationship?: Yes History History 4 Para Hx # Term Pregnancies 3 Multiple births Hx # Pregnancies Ectopic pregnancies AB induced Hx Number of Living Children AB spontaneous Exam Extrem Right lower extremity: normal to inspection, full ROM and normal capillary r efill; no cyanosis, no edema, joint enlargement noted and hip/thigh not examined Left lower extremity: normal capillary refill, hip/thigh Details: tenderness Location: of the hip and of the mid upper leg; no deformity and no unusual warmth and knee Details: normal to inspection and tenderness Location: of the popliteal fossa; no swelling, no abrasions, no lacerations, no ecchymosis, no crepitus, no deformity and no unusual warmth; no cyanosis, no edema and joint enlargement noted Course Vital Signs Vital signs: Vital Signs Temperature 36.5 C 04/21/19 16:15 Pulse 69 04/21/19 16:15 Respiratory Rate 16 04/21/19 16:15 Blood Pressure 145/63 H 04/21/19 16:15 Pulse Oximetry 100 04/21/19 16:15 Temperature 36.5 C 04/21/19 16:15 Temperature Source Skin 04/21/19 16:15 Pulse 69 04/21/19 16:15 Respiratory Rate 16 04/21/19 16:15 Respiratory Effort 04/21/19 16:19 Blood Pressure 145/63 H 04/21/19 16:15 Blood Pressure Position Sitting 04/21/19 16:15 Pulse Oximetry 100 04/21/19 16:15 Oxygen Delivery Method Room Air 04/21/19 16:15 Oxygen Flow Rate 0 04/21/19 16:15 Pain Level 5 04/21/19 16:20 Comment 04/21/19 16:15
[2019-04-21] MEDS: Ondansetron O.D.T. 4 MG TABEF PO (16:50)
[2019-04-21] MEDS: oxyCODONE 5 mg/Acetaminophen 325 mg TAB 1 TAB PO (16:50)
--- NOTE | 2019-04-21 17:03 | DI.RAD_ITS ---
EXAM: XR HIP LT AP LAT ONLY INDICATION: Fall, hip pain. COMPARISON: DEXA BONE DENSITY WITH SHEA from 11/23/2014 TECHNIQUE: 2D digital imaging was performed. FINDINGS: No fracture or dislocation is seen. There are no significant degenerative changes. No soft tissue c alcifications are seen. IMPRESSION: Negative left hip.
--- NOTE | 2019-04-21 17:04 | DI.RAD_ITS ---
EXAM: XR KNEE LT 3V AP,LAT,MARISA INDICATION: fall, knee pain. COMPARISON: No exams were available for comparison TECHNIQUE: 2D digital imaging was performed. FINDINGS: No fracture or joint effusion is seen. The joint spaces are well maintained. IMPRESSION: Negative left knee
--- NOTE | 2019-04-21 17:23 | DI.VRAD_ITS ---
PROCEDURE INFORMATION: Exam: XR Left Hip with Pelvis when Performed Exam date and time: 04/21/2019 5:08 PM Age: 59 years old Clinical indication: Hip pain; Left hip TECHNIQUE: Imaging protocol: XR Left hip with pelvis when performed. Views: 2 or 3 views. COMPARISON: CR PELVIS WITH OBLIQUES 3 VIEWS 02/14/2015 13:19 FINDINGS: Bones/joints: Unremarkable. No acute fracture. Soft tissues: Unremarkable. IMPRESSION: No acute findings. If clinical symptoms persist recommend followup film in 7-10 days. Dictated and Authenticated by: Alina Brooke MD. Ordering:ARAM Rios MD
--- NOTE | 2019-04-21 17:26 | DI.VRAD_ITS ---
PROCEDURE INFORMATION: Exam: XR Left Knee Exam date and time: 04/21/2019 5:08 PM Age: 59 years old Clinical indication: Pain; Knee; Left TECHNIQUE: Imaging protocol: XR Left knee. Views: 3 views. COMPARISON: No relevant prior studies available. FINDINGS: Bones/joints: Unremarkable. Soft tissues: Unremarkable. IMPRESSION: No evidence for acute bony injury. If clinical symptoms persist recommend followup film in 7-10 days. Dictated and Authenticated by: Alina Brooke MD. Ordering:ARAM Rios MD
[2019-04-21 18:02] VITALS: BP 137/85; PULSE 90; RESP 15; TEMP 36; O2SAT 95
[2019-04-21 18:07] VITALS: BP 137/85; PULSE 90; RESP 15; TEMP 36; O2SAT 95
== END 2019-04-21 18:08 | disposition home or self-care (01) ==
PROVIDERS: Emergency Provider Registered Nurse Emergency; PCP Nurse Practitioner
DX: S76.312A Strain of muscle, fascia and tendon of the posterior muscle group at thigh level, left thigh, initial encounter (principal); W00.0XXA Fall on same level due to ice and snow, initial encounter; M25.552 Pain in left hip; M25.562 Pain in left knee; E11.9 Type 2 diabetes mellitus without complications; Z79.4 Long term (current) use of insulin
CPT/HCPCS: 73562; 99284; 73502; E0114

== ENCOUNTER 2019-06-24 12:45 | Emergency (ER) | payer OTHER, SELFPAY ==
[2019-06-24] VITALS (28 sets, daily range): BP systolic 118–148; BP diastolic 54–78; PULSE 62–78; RESP 12–22; TEMP 36.7; O2SAT 97–100
--- NOTE | 2019-06-24 12:55 | ED.GENADUL_ITS ---
Discharge Plan Disposition Patient Disposition: HOME Condition: Improving Discharge Details Chief Complaint: Chest Pain Clinical Impression: Acute bronchitis Primary Care Provider: Imelda Beckman ED Provider: Marcy Pinto Home Meds and New Rx's Prescriptions: New prednisone 20 mg tablet See Rx Instructions .ROUTE .COMPLEX Qty: 12 RF: 0 benzonatate [Tessalon Perles] 100 mg capsule 100 mg PO TID PRN (Reason: cough) Qty: 14 RF: 0 albuterol sulfate 90 mcg/actuation aerosol powdr breath activated 2 inh IH Q6H PRN (Reason: shortness of breath or wheezing) Qty: 1 RF: 0 doxycycline hyclate 100 mg tablet 100 mg PO BID 7 Days Qty: 14 RF: 0 Continued insulin lispro [Humalog KwikPen Insulin] 100 unit/mL insulin pen See Rx Instructions subcut as directed Qty: 15 RF: 12 nystatin 100,000 unit/gram cream 1 applic TP TID Qty: 15 RF: 1 simvastatin 20 mg tablet 20 mg PO DAILY Qty: 90 RF: 3 Lac-Hydrin Five 5 % lotion 1 applic TP BID Qty: 226 RF: 0 triamcinolone acetonide 0.1 % cream 1 applic TP DAILY Qty: 30 RF: 0 (DME) pen needle, diabetic [Pen Needle] 31 gauge x 5/16 needle 1 ea Miscellaneous qid and hs Qty: 540 RF: 3 Lantus Solostar U-100 Insulin 100 unit/mL (3 mL) insulin pen See Rx Instructions subcut HS Qty: 15 RF: 12 oxycodone-acetaminophen [Percocet] 5-325 mg tablet 1 tab PO BID MDD 2 tabs PRN (Reason: pain) Qty: 6 RF: 0 cyclobenzaprine 10 mg tablet 10 mg PO BID PRN (Reason: muscle spasm) Qty: 12 RF: 0 Glucagon Emergency Kit (human) 1 MG kit 1 mg IJ PRN PRNRF: 0 acetaminophen [Tylenol] 325 MG tablet 325 mg PO PRN RF: 0 aspirin [Aspir-81] 81 MG tablet,delayed release (DR/EC) 81 mg PO DAILY RF: 0 fexofenadine 180 MG tablet 180 mg PO BID RF: 0 hydroxychloroquine [Plaquenil] 200 MG tablet 200 mg PO BID RF: 0 esomeprazole magnesium [Nexium] 20 MG capsule,delayed release(DR/EC) 20 mg PO DAILY RF: 0 (DME) OneTouch Ultra Test strip 1 ea Miscellaneous 6 X A DAY Qty: 540 RF: 3 levothyroxine 125 mcg tablet 125 mcg PO DAILY Qty: 180 RF: 3 venlafaxine 37.5 mg capsule,extended release 24hr 37.5 mg PO DAILY Qty: 90 RF: 4 budesonide-formoterol [Symbicort] 80-4.5 mcg/actuation HFA aerosol inhaler 2 puff Inhalation BID Qty: 3 RF: 3 ibuprofen 800 mg tablet 800 mg PO TID Qty: 90 RF: 3 albuterol sulfate [ProAir HFA] 8.5 GM HFA aerosol inhaler 2 puff Inhalation Q6H PRN Qty: 3 RF: 3 epinephrine 0.3 MG/0.3 ML auto-injector 0.3 mg IJ ONCE PRN (Reason: Anaphylaxis) Qty: 1 RF: 0 Discharge Instructions Instructions: Acute Bronchitis (ED) Additional Instructions: Use your albuterol inhaler as needed and directed for shortness of breath, cough or wheezing. Take the steroids until finished. If you develop any worsening symptoms or cough, you can consider starting the antibiotics. Follow-up with your primary care doctor in 1 week. Return to the emergency department with any worsening or new concerning symptoms. Discharge Data Discharge Date/Time-TO BE ENTERED AT DEPARTURE: 06/24/19 15:33 Discharge Physician: Marcy Pinto Medical Decision Making 1300 -- 59-year-old female with a history of alcohol and tobacco abuse, diabetes, lupus, Larsen's esophagus presents for dry cough, shortness of breath and chest heaviness over the past week. EKG on arrival notes a rate of 68, sinus with no acute ST ischemic changes. She is speaking in full sentences and appears in no acute distress. Vitals within normal limits. She has scattered wheezing right upper lobe. Differential diagnosis includes ACS, bronchitis, pneumonia, acute asthma or COPD exacerbation. History and presentation not consistent with PE or dissection. Will check screening labs, chest x-ray and give a DuoNeb and reassess. 1500 --labs and imaging reviewed. Normal white blood cell count, d-dimer, troponin. BNP very minimally elevated at 311. Chest x-ray negative. Patient reassessed -she states she feels better. Patient is requesting to go home. As symptoms have been present for over the past week, do not see indication for repeat troponin. Symptoms likely infectious in nature and includes bronchitis, viral URI. As patient is a smoker, will treat with albuterol, steroids. We will also give a prescription for antibiotics if symptoms do not improve or worsen. Advised to follow up with the primary care doctor for re-evaluation. Usual and customary return precautions given prior to discharge. Medical Records Medical records reviewed: Yes I reviewed the patient's medical records. Imaging Data Radiologic Study: Radiologist's impression: XR CHEST 2V PA LATERAL CLINICAL HISTORY: cough, sob, r/o acute disease cough, sob, r/o acute disease TECHNIQUE: 2D digital imaging was performed. COMPARISON: XR CHEST 2V PA LATERAL from 12/22/2017 FINDINGS: The heart is not enlarged. The lungs are clear and well expanded. No pleural effusion seen. Mediastinal contours appear intact. IMPRESSION: Normal chest Lab Data Lab results reviewed: Yes I reviewed the patient's lab results. Labs: Laboratory Tests Range/Units 06/24/19 06/24/19 06/24/19 12:57 12:57 12:57 WBC (4.4-10.8) k/cumm 5.99 RBC (4.00-5.20) m/cumm 4.06 Hgb (12.0-15.5) g/dL 13.0 Hct (36.0-46.0) % 38.2 MCV (80-95) fL 94.1 MCH (27.0-33.0) pg 32.0 MCHC (32.0-36.0) g/dL 34.0 RDW (11.7-14.6) % 12.0 Plt Count (130-400) x1000/uL 305 MPV (8.0-11.0) fL 10.3 Immature Gran % % 0.2 Neutrophils % 54.0 Lymphocytes % 33.2 Monocytes % 10.9 Eosinophils % 1.2 Basophils % 0.5 Absolute Neutrophils (1.2-6.7) k/cumm 3.24 Absolute Lymphocytes (1.2-3.4) k/cumm 1.99 Absolute Monocytes (0.11-0.7) k/cumm 0.65 Absolute Eosinophils (0.0-0.7) k/cumm 0.07 Absolute Basophils (0.0-0.2) k/cumm 0.03 D-Dimer (<500) ng/mlFEU Sodium (136-145) mmol/L 131 L Potassium (3.5-5.1) mmol/L 4.4 Chloride (98-107) mmol/L 94 L Carbon Dioxide (21.0-32.0) mmol/L 28.8 Anion Gap (3-11) mmol/L 8.2 BUN (7-18) mg/dL 11 Creatinine (0.55-1.02) mg/dL 0.95 Estimated GFR/1.73 m2 (mL/min/1.73m2) >= 60.00 Glucose (74-106) mg/dL 167 H Calcium (8.5-10.1) mg/dL 8.7 Magnesium (1.8-2.4) mg/dL 1.6 L Total Bilirubin (0.2-1.0) mg/dL 0.4 AST (15-37) U/L 31 ALT (14-59) U/L 34 Alkaline Phosphatase (46-116) U/L 173 H Troponin I (<0.06) ng/Ml < 0.05 NT-Pro-B Natriuret Pep (<300) pg/mL 311 H Total Protein (6.4-8.2) g/dL 7.2 Albumin (3.4-5.0) g/dL 3.8 Range/Units 06/24/19 12:57 WBC (4.4-10.8) k/cumm RBC (4.00-5.20) m/cumm Hgb (12.0-15.5) g/dL Hct (36.0-46.0) % MCV (80-95) fL MCH (27.0-33.0) pg MCHC (32.0-36.0) g/dL RDW (11.7-14.6) % Plt Count (130-400) x1000/uL MPV (8.0-11.0) fL Immature Gran % % Neutrophils % Lymphocytes % Monocytes % Eosinophils % Basophils % Absolute Neutrophils (1.2-6.7) k/cumm Absolute Lymphocytes (1.2-3.4) k/cumm Absolute Monocytes (0.11-0.7) k/cumm Absolute Eosinophils (0.0-0.7) k/cumm Absolute Basophils (0.0-0.2) k/cumm D-Dimer (<500) ng/mlFEU 328 Sodium (136-145) mmol/L Potassium (3.5-5.1) mmol/L Chloride (98-107) mmol/L Carbon Dioxide (21.0-32.0) mmol/L Anion Gap (3-11) mmol/L BUN (7-18) mg/dL Creatinine (0.55-1.02) mg/dL Estimated GFR/1.73 m2 (mL/min/1.73m2) Glucose (74-106) mg/dL Calcium (8.5-10.1) mg/dL Magnesium (1.8-2.4) mg/dL Total Bilirubin (0.2-1.0) mg/dL AST (15-37) U/L ALT (14-59) U/L Alkaline Phosphatase (46-116) U/L Troponin I (<0.06) ng/Ml NT-Pro-B Natriuret Pep (<300) pg/mL Total Protein (6.4-8.2) g/dL Albumin (3.4-5.0) g/dL ECG Data Attestation: I personally reviewed and interpreted this ECG (s) as follows: Interpretation: Rate of 60, sinus, no acute ST elevation or depression. ME 158. QTc 419. QRS 90. HPI General Mode of arrival: ambulatory . Date/Time Provider Initiated Documentation: 06/24/19 12:53 . Limitations to Documentation: no limitations . Information obtained by: patient . HPI Narrative: Patient is a 59-year-old female with a history of daily alcohol use, Larsen's esophagus, diabetes, tobacco smoker who presents with dry cough, shortness of breath and chest tightness over the past week. Patient called her PCP office today about this and was referred to the ER for further evaluation. She states her chest tightness feels like a pressure heaviness this is worse with exertion. She denies any fever or recent travel. She states she has had a fairly normal appetite. Denies any leg pain or swelling. She has not taken any medication for her symptoms. Related Data Home Medications Medication Instructions Recorded Confirmed Glucagon Emergency Kit (human) 1 mg IJ PRN PRN kit 06/29/12 04/26/19 acetaminophen [Tylenol] 325 mg PO PRN 06/29/12 06/24/19 aspirin [Aspir-81] 81 mg PO DAILY tab 06/29/12 06/24/19 fexofenadine 180 mg PO BID 07/21/14 06/24/19 albuterol sulfate [ProAir HFA] 2 puff INHALATION Q6H PRN #3 08/15/16 06/24/19 inhaler epinephrine 0.3 mg IJ ONCE PRN #1 auto.injct 02/07/17 06/24/19 hydroxychloroquine [Plaquenil] 200 mg PO BID 02/17/17 06/24/19 esomeprazole magnesium [Nexium] 20 mg PO DAILY tab-cap 04/30/17 06/24/19 [employer] Ultra Test #540 strip NS 12/29/17 04/26/19 insulin lispro 100 unit/mL See Rx Instructions SUBCUT as 03/04/18 06/24/19 subcutaneous pen directed #15 ml ammonium lactate 5 % lotion 1 applic TP BID #226 gm 04/21/18 06/24/19 nystatin 100,000 unit/gram topical 1 applic TP TID #15 gm 06/07/18 06/24/19 cream simvastatin 20 mg tablet 20 mg PO DAILY #90 tab 06/07/18 06/24/19 levothyroxine 125 mcg tablet 125 mcg PO DAILY #180 tab-cap 09/06/18 06/24/19 venlafaxine 37.5 mg 37.5 mg PO DAILY #90 tab-cap 10/25/18 06/24/19 capsule,extended release 24 hr pen needle, diabetic 31 gauge x #540 ndl 11/24/18 04/26/1908/19 triamcinolone acetonide 0.1 % 1 applic TP DAILY #30 gm 11/24/18 06/24/19 topical cream budesonide-formoterol HFA 80 2 puff INHALATION BID #3 inhaler 12/14/18 06/24/19 mcg-4.5 mcg/actuation aerosol inhaler ibuprofen 800 mg tablet 800 mg PO TID #90 tab 12/20/18 06/24/19 cyclobenzaprine 10 mg tablet 10 mg PO BID PRN #12 tab 04/26/19 06/24/19 insulin glargine 100 unit/mL (3 See Rx Instructions SUBCUT HS #15 01/21/20 03/20/20 mL) subcutaneous pen ml oxycodone-acetaminophen 5 mg-325 1 tab PO BID PRN #6 tab MDD 2 tabs 04/26/19 06/24/19 mg tablet albuterol sulfate 2 inh IH Q6H PRN #1 each 06/24/19 benzonatate [Tessalon Perles] 100 mg PO TID PRN #14 cap 06/24/19 doxycycline hyclate 100 mg PO BID 7 Days #14 tab 06/24/19 prednisone See Rx Instructions .ROUTE 06/24/19 .COMPLEX #12 tab Previous Rx's Medication Instructions Recorded albuterol sulfate [ProAir HFA] 2 puff INHALATION Q6H PRN #3 08/15/16 inhaler epinephrine 0.3 mg IJ ONCE PRN #1 auto.injct 02/07/17 [employer]i Ultra Test #540 strip NS 12/29/17 insulin lispro 100 unit/mL See Rx Instructions SUBCUT as 03/04/18 subcutaneous pen directed #15 ml ammonium lactate 5 % lotion 1 applic TP BID #226 gm 04/21/18 nystatin 100,000 unit/gram topical 1 applic TP TID #15 gm 06/07/18 cream simvastatin 20 mg tablet 20 mg PO DAILY #90 tab 06/07/18 venlafaxine 37.5 mg 37.5 mg PO DAILY #90 tab-cap 10/25/18 capsule,extended release 24 hr pen needle, diabetic 31 gauge x #540 ndl 11/24/1808/19 triamcinolone acetonide 0.1 % 1 applic TP DAILY #30 gm 11/24/18 topical cream ibuprofen 800 mg tablet 800 mg PO TID #90 tab 12/20/18 cyclobenzaprine 10 mg tablet 10 mg PO BID PRN #12 tab 04/26/19 insulin glargine 100 unit/mL (3 See Rx Instructions SUBCUT HS #15 04/26/19 mL) subcutaneous pen ml oxycodone-acetaminophen 5 mg-325 1 tab PO BID PRN #6 tab MDD 2 tabs 04/26/19 mg tablet albuterol sulfate 2 inh IH Q6H PRN #1 each 06/24/19 benzonatate [Tessalon Perles] 100 mg PO TID PRN #14 cap 06/24/19 doxycycline hyclate 100 mg PO BID 7 Days #14 tab 06/24/19 prednisone See Rx Instructions .ROUTE 06/24/19 .COMPLEX #12 tab Allergies Allergy/AdvReac Type Severity Reaction Status Date / Time hydroxychloroquine Allergy Severe hives-01/23 Verified 06/24/19 13:00 17 Penicillins Allergy Intermediate Hives Verified 06/24/19 13:00 gabapentin [From Neurontin] AdvReac Severe Pt. states Verified 06/24/19 13:00 medication messed up her head. General BRIANNA: 3 Review of Systems All systems reviewed & are unremarkable except as noted in HPI and below Constitutional Constitutional: Reports as per HPI, Denies chills and Denies fever(s) Eyes Eyes: Denies blurry vision ENT Ears, Nose, Mouth, and Throat: Denies dizziness, Denies sore throat and Denies throat swelling Cardiovascular Cardiovascular: Reports chest pain and Reports dyspnea Respiratory Respiratory: Reports cough and Reports dyspnea Gastrointestinal Gastrointestinal: Denies abdominal pain, Denies diarrhea and Denies vomiting Genitourinary Genitourinary: Denies hematuria and Denies dysuria Musculoskeletal Musculoskeletal: Denies back pain and Denies numbness Integumentary/Breasts Skin/Breast: Denies lesions and Denies rash Neurologic Neurologic: Denies dizziness, Denies localized weakness and Denies numbness Allergic/Immunologic Allergic/Immunologic: Denies throat swelling [facility] Social History Smoking/Tobacco Use Status: Current every day Quit status: not considering quitting Counseling given: provider counseling Alcohol Intake: current Alcohol Intake frequency: a few times a week Alcohol type: beer Drug use: Never Substance use type: does not use Adopted: No Foster care: No Household members: spouse and other Details: H-Ed. Number of Children: 3 number of grandchildren: 1 Communication Needs: None current occupation: retired - [employer]. What type of physical activity do you participate in: walking Duration: 30-45 minutes/day Frequency: 5-6 times per week Do you feel safe at home: Yes Do you feel safe in your relationship?: Yes History History 4 Para Hx # Term Pregnancies 3 Multiple births Hx # Pregnancies Ectopic pregnancies AB induced Hx Number of Living Children AB spontaneous Exam Const General: cooperative and no acute distress Orientation: alert, awake and oriented x3 HENMT Head: normal to inspection Face and sinus: normal facial exam Eyes General: appearance normal, both eyes and all related structures EOM: EOM intact bilaterally Neck Neck: normal visual inspection and No submandibular swelling Lymphatic: no lymphadenopathy noted Chest Chest: normal inspection of the chest and no tenderness Resp Effort & Inspection: normal respiratory effort and able to speak in complete sentences Auscultation: clear to auscultation bilaterally and wheezes scattered wheezes and right upper Cardio Rate: regular rate Rhythm: regular rhythm GI Inspection: normal to inspection Palpation: soft, not firm, not rigid and nontender Auscultation: normal bowel sounds Skin General skin exam: no rashes or lesions noted Neuro General: patient alert, patient awake and patient oriented x3 Cognition: normal cognition Speech: speech normal Motor: muscle tone normal throughout Sensory Exam: no sensory deficits noted Extrem General: normal to inspection, full ROM, capillary refill normal, no calf tenderness bilaterally and no edema Psych Appearance: grossly normal Mental Status: mental status grossly normal Speech and Movement: speech and movement normal Affect: normal affect
[2019-06-24] MEDS: Albuterol/Ipratropium 3 ML UPD VIAL UPD (13:35)
[2019-06-24 13:38] LABS: Abs Immature Grans 0.01 k/cumm (0.0-0.09); Absolute Basophil Count 0.03 k/cumm (0.0-0.2); Absolute Eosinophil Count 0.07 k/cumm (0.0-0.7); Absolute Lymphocyte Count 1.99 k/cumm (1.2-3.4); Absolute Monocyte Count 0.65 k/cumm (0.11-0.7); Absolute Neutrophil Count 3.24 k/cumm (1.2-6.7); Basophils % 0.5; Eosinophils % 1.2; HCT 38.2 % (36.0-46.0); Immature Grans % 0.2 %; Lymphocytes % 33.2; Mean Corpuscular Volume 94.1 fL (80-95); Mean Platelet Volume 10.3 fL (8.0-11.0); Monocytes % 10.9; Platelet Count 305 x1000/uL (130-400); RBC 4.06 m/cumm (4.00-5.20); White Blood Cell Count 5.99 k/cumm (4.4-10.8)
[2019-06-24 13:56] LABS: ALT 34 U/L (14-59); AST 31 U/L (15-37); Albumin 3.8 g/dL (3.4-5.0); Alkaline Phosphatase 173 U/L (46-116); BUN 11 mg/dL (7-18); Bilirubin, Total 0.4 mg/dL (0.2-1.0); CO2 28.8 mmol/L (21.0-32.0); CREATININE 0.95 mg/dL (0.55-1.02); Calcium 8.7 mg/dL (8.5-10.1); Glucose 167 mg/dL (74-106); Magnesium 1.6 mg/dL (1.8-2.4); Total Protein 7.2 g/dL (6.4-8.2)
[2019-06-24 13:59] LABS: NT-proBNP 311 pg/mL (<300)
[2019-06-24 14:02] LABS: Troponin I < 0.05 ng/Ml (<0.06)
[2019-06-24 14:09] LABS: Anion Gap 8.2 mmol/L (3-11); Chloride 94 mmol/L (98-107); Sodium 131 mmol/L (136-145)
[2019-06-24 14:10] LABS: Potassium 4.4 mmol/L (3.5-5.1)
--- NOTE | 2019-06-24 14:10 | DI.RAD_ITS ---
EXAM: XR CHEST 2V PA LATERAL XR CHEST 2V PA LATERAL CLINICAL HISTORY: cough, sob, r/o acute disease cough, sob, r/o acute disease TECHNIQUE: 2D digital imaging was performed. COMPARISON: XR CHEST 2V PA LATERAL from 12/22/2017 FINDINGS: The heart is not enlarged. The lungs are clear and well expanded. No pleural effusion seen. Mediastin al contours appear intact. IMPRESSION: Normal chest
[2019-06-24] MEDS: predniSONE 20 MG TAB 60 MG PO (14:35)
[2019-06-24 15:12] LABS: D-Dimer 328 ng/mlFEU (<500)
== END 2019-06-24 15:33 | disposition home or self-care (01) ==
PROVIDERS: Emergency Provider Physician Assistant; PCP Nurse Practitioner
DX: J20.8 Acute bronchitis due to other specified organisms (principal); E11.9 Type 2 diabetes mellitus without complications; Z79.4 Long term (current) use of insulin; F17.210 Nicotine dependence, cigarettes, uncomplicated
CPT/HCPCS: 36415; 80053; 93005; 94640; 99285; 71046; 83735; 83880; 84484; 85025; 85379; 93010; 99284; J7512; J7620

== ENCOUNTER 2019-08-31 02:35 | Outpatient (CLI) | payer OTHER, SELFPAY ==
[2019-08-31 08:24] LABS: Hemoglobin A1C 8.7 % (3.8-5.6)
[2019-08-31 08:53] LABS: ALT 29 U/L (14-59); AST 28 U/L (15-37); Albumin 3.7 g/dL (3.4-5.0); Alkaline Phosphatase 191 U/L (46-116); Anion Gap 6.7 mmol/L (3-11); BUN 9 mg/dL (7-18); Bilirubin, Total 0.3 mg/dL (0.2-1.0); CO2 28.3 mmol/L (21.0-32.0); CREATININE 1.06 mg/dL (0.55-1.02); Calcium 9.2 mg/dL (8.5-10.1); Calculated LDL 127 mg/dL (<100); Chloride 100 mmol/L (98-107); Cholesterol 242 mg/dL (<200); Estimated GFR 53.43 (mL/min/1.73m2); Glucose 315 mg/dL (74-106); HDL Cholesterol 102 mg/dL (40-60); Potassium 5.8 mmol/L (3.5-5.1); Sodium 135 mmol/L (136-145); TSH (W/Ref FT4) 2.42 uIU/mL (0.36-3.74); Total Protein 6.9 g/dL (6.4-8.2); Triglyceride 69 mg/dL (<150)
== END 2019-08-31 02:55 ==
PROVIDERS: PCP Nurse Practitioner; Visit Provider Nurse Practitioner
DX: E03.9 Hypothyroidism, unspecified (principal); E11.9 Type 2 diabetes mellitus without complications; E78.5 Hyperlipidemia, unspecified
CPT/HCPCS: 36415; 80053; 80061; 83036; 84443

== ENCOUNTER 2019-09-15 02:42 | Outpatient (CLI) | payer OTHER, SELFPAY ==
[2019-09-15 14:08] LABS: Potassium 4.7 mmol/L (3.5-5.1)
== END 2019-09-15 03:02 ==
PROVIDERS: PCP Nurse Practitioner; Visit Provider Nurse Practitioner
DX: E87.5 Hyperkalemia (principal)
CPT/HCPCS: 36415; 84132

== ENCOUNTER 2019-10-19 01:09 | Outpatient (CLI) | payer OTHER, SELFPAY ==
[2019-10-19 13:36] LABS: Bilirubin Negative (Negative); Blood Negative (Negative); Clarity Clear (Clear); Glucose Negative (Negative); Ketones Negative (Negative); Leukocyte Esterase Negative (Negative); Nitrite Negative (Negative); Specific Gravity 1.025 (1.005-1.025); Urobilinogen 0.2 EU/dL (Up TO 0.2); pH 5.5 (5-8)
[2019-10-19 14:03] LABS: Abs Immature Grans 0.01 k/cumm (0.0-0.09); Absolute Basophil Count 0.01 k/cumm (0.0-0.2); Absolute Eosinophil Count 0.07 k/cumm (0.0-0.7); Absolute Lymphocyte Count 1.67 k/cumm (1.2-3.4); Absolute Neutrophil Count 3.36 k/cumm (1.2-6.7); Basophils % 0.2; Eosinophils % 1.2; Immature Grans % 0.2 %; Lymphocytes % 29.2; Mean Corp. HGB Concentration 34.2 g/dL (32.0-36.0); Mean Corpuscular Hemoglobin 32.2 pg (27.0-33.0); Mean Corpuscular Volume 94.1 fL (80-95); Mean Platelet Volume 9.9 fL (8.0-11.0); Monocytes % 10.5; Neutrophils % 58.7; Platelet Count 298 x1000/uL (130-400); RBC 4.04 m/cumm (4.00-5.20); RBC Distribution Width 12.4 % (11.7-14.6); White Blood Cell Count 5.72 k/cumm (4.4-10.8)
[2019-10-19 14:21] LABS: Hemoglobin A1C 8.2 % (3.8-5.6)
[2019-10-19 14:32] LABS: Anion Gap 10.6 mmol/L (3-11); BUN 14 mg/dL (7-18); C-Reactive Protein 0.43 mg/dL (0.0-0.3); CO2 26.4 mmol/L (21.0-32.0); CREATININE 1.14 mg/dL (0.55-1.02); Calcium 9.3 mg/dL (8.5-10.1); Chloride 94 mmol/L (98-107); Estimated GFR 49.13 (mL/min/1.73m2); Glucose 325 mg/dL (74-106); Potassium 5.4 mmol/L (3.5-5.1); Sodium 131 mmol/L (136-145); TSH 3.93 uIU/mL (0.36-3.74)
[2019-10-19 14:43] LABS: ESR 16 mm/hr (0-30)
[2019-10-19 14:51] LABS: LDL CHOLESTEROL 79 mg/dL (<100)
[2019-10-20 10:31] LABS: C3 Complement 87 mg/dL (81-157); C4 Complement 16 mg/dL (13-39)
== END 2019-10-19 01:29 ==
PROVIDERS: PCP Nurse Practitioner; Visit Provider Internal Medicine
DX: E13.9 Other specified diabetes mellitus without complications (principal); E78.5 Hyperlipidemia, unspecified; E03.9 Hypothyroidism, unspecified; M35.00 Sjogren syndrome, unspecified; M32.9 Systemic lupus erythematosus, unspecified; M35.1 Other overlap syndromes
CPT/HCPCS: 36415; 80048; 83721; 85652; 81003; 83036; 84443; 85025; 86140; 86160

== ENCOUNTER 2019-10-26 03:59 | Outpatient (CLI) | payer OTHER, SELFPAY ==
[2019-10-26 12:47] LABS: NT-proBNP 301 pg/mL (<300); Potassium 5.6 mmol/L (3.5-5.1)
== END 2019-10-26 04:19 ==
PROVIDERS: PCP Nurse Practitioner; Visit Provider Nurse Practitioner
DX: R79.9 Abnormal finding of blood chemistry, unspecified (principal)
CPT/HCPCS: 83880; 84132

== ENCOUNTER 2019-11-01 02:31 | Outpatient (CLI) | payer OTHER, SELFPAY ==
[2019-11-01 14:17] LABS: Anion Gap 10.7 mmol/L (3-11); BUN 9 mg/dL (7-18); CO2 26.3 mmol/L (21.0-32.0); CREATININE 1.07 mg/dL (0.55-1.02); Calcium 9.4 mg/dL (8.5-10.1); Chloride 94 mmol/L (98-107); Estimated GFR 52.86 (mL/min/1.73m2); Glucose 174 mg/dL (74-106); Potassium 4.7 mmol/L (3.5-5.1); Sodium 131 mmol/L (136-145)
== END 2019-11-01 02:51 ==
PROVIDERS: PCP Nurse Practitioner; Visit Provider Nurse Practitioner
DX: E87.5 Hyperkalemia (principal)
CPT/HCPCS: 36415; 80048

== ENCOUNTER 2019-12-29 04:46 | Outpatient (CLI) | payer OTHER, SELFPAY ==
[2019-12-29 12:44] LABS: ALT 44 U/L (14-59); AST 38 U/L (15-37); Albumin 4.1 g/dL (3.4-5.0); Alkaline Phosphatase 192 U/L (46-116); Anion Gap 4.8 mmol/L (3-11); BUN 10 mg/dL (7-18); Bilirubin, Total 0.4 mg/dL (0.2-1.0); CO2 31.2 mmol/L (21.0-32.0); Calcium 9.7 mg/dL (8.5-10.1); Chloride 102 mmol/L (98-107); Glucose 74 mg/dL (74-106); Potassium 5.3 mmol/L (3.5-5.1); Sodium 138 mmol/L (136-145); Total Protein 7.2 g/dL (6.4-8.2)
== END 2019-12-29 05:06 ==
PROVIDERS: PCP Nurse Practitioner; Visit Provider Obstetrics & Gynecology Gynecology
DX: E87.5 Hyperkalemia (principal); R79.89 Other specified abnormal findings of blood chemistry
CPT/HCPCS: 36415; 80053

== ENCOUNTER 2020-01-09 00:38 | Outpatient (CLI) | payer OTHER, SELFPAY ==
--- NOTE | 2020-01-09 12:10 | DI.MAMMO_ITS ---
EXAM: MG MAMMO SCREENING CLINICAL HISTORY: screening TECHNIQUE: Mammograms were interpreted according to the usual protocol including computer analysis w [employer] CAD system, tomosynthesis and C-view imaging. COMPARISON: FINDINGS: The breasts are of moderate density with fairly symmetrical distribution of fibroglandular tissue. T here are coarse benign appearing calcifications in the upper outer quadrant of right breast which ricardo ear stable in comparison with prior examinations including August 2018. Typical arterial calcifications are noted scattered in both breasts. No suspicious clumped microcalcification seen. No dominant ma ss identified. No change in appearance of the breasts since prior examinations. IMPRESSION: No specific evidence of malignancy at this time. Routine screening examinations are suggested at ye diego intervals in this age group according to the ACS ACR guidelines. BI-RADS Cat 2 - Benign Findings Breast Density - Category B - Scattered areas of fibroglandular density
== END 2020-01-09 00:58 ==
PROVIDERS: PCP Nurse Practitioner; Visit Provider Obstetrics & Gynecology Gynecology
DX: Z12.31 Encounter for screening mammogram for malignant neoplasm of breast (principal); R92.1 Mammographic calcification found on diagnostic imaging of breast
CPT/HCPCS: 77063; 77067

== ENCOUNTER 2020-01-20 01:53 | Outpatient (CLI) | payer OTHER, SELFPAY ==
[2020-01-20 09:57] LABS: Bilirubin Negative (Negative); Blood Negative (Negative); Clarity Clear (Clear); Glucose 500 mg/dL (Negative); Ketones Negative (Negative); Leukocyte Esterase Negative (Negative); Nitrite Negative (Negative); Urobilinogen 0.2 EU/dL (Up TO 0.2); pH 6.5 (5-8)
[2020-01-20 10:01] LABS: Hemoglobin A1C 8.5 % (<5.7)
[2020-01-20 10:09] LABS: COMMENT (LAB VIEW ONLY) 60.74 mg/dL; Microalb ug/mg Crea 16.3 ug/mg Cr
[2020-01-20 10:25] LABS: Anion Gap 7.6 mmol/L (3-11); BUN 14 mg/dL (7-18); CO2 29.4 mmol/L (21.0-32.0); CREATININE 0.97 mg/dL (0.55-1.02); Calcium 10.2 mg/dL (8.5-10.1); Chloride 100 mmol/L (98-107); Estimated GFR 59.19 (mL/min/1.73m2); Glucose 275 mg/dL (74-106); Sodium 137 mmol/L (136-145); TSH 1.92 uIU/mL (0.36-3.74)
[2020-01-24 13:40] LABS: Renin Activity, Plasma <0.6 ng/mL/h
== END 2020-01-20 02:13 ==
PROVIDERS: PCP Nurse Practitioner; Visit Provider Internal Medicine Endocrinology, Diabetes & Metabolism
DX: E87.5 Hyperkalemia; E89.0 Postprocedural hypothyroidism; E11.43 Type 2 diabetes mellitus with diabetic autonomic (poly)neuropathy; K31.84 Gastroparesis
CPT/HCPCS: 36415; 80048; 81003; 82043; 82088; 82570; 83036; 84244; 84443

== ENCOUNTER 2020-03-15 00:55 | Outpatient (CLI) | payer OTHER, SELFPAY ==
--- NOTE | 2020-03-15 09:15 | DI.NM_ITS ---
APPROVED REPORT Exam: Pharmacologic Patient Location: Out-Patient Room/Bed: Stress Nurse: Silvia Garcia RN BMI: 27.11 Baseline Rhythm: Sinus Rhythm Indications: Mixed connective tissue disorder, Dyspnea on exertion. Medical History Medical History: DM, HLD, CAIN, Mixed connective tissue disorder, Tobacco use, ETOH, Larsen's esophag us, nonproliferative diabetic retinopathy. Cardiac Medications: Aspirin, Glucagon emergency kit, epinephrine, esomeprazole, insulin lispro, insu mikhail glargine, simvastatin, Plaquenil., Allergies: Gabapentin, Hydroxychloroquine, Penicillins. Cardiac Risk Factors: COPD, Hyperlipidemia, Diabetes (insulin), Smoking (current), Asthma Previous Cardiac Procedures: None. Pretest Chest Pain Characteristics: None. Exercise History: Sedentary Physical Disabilities: None. Lung Sounds: Rhonchi lung sounds. Heart Sounds: Regular Stress Test Details Test: Exercise stress converted to pharmacologic stress due to failure to obtain a diagnostic stress test. Reason for pharmacologic stress test: physical limitation. Nuclear Acquisition: Rest Tc-99m/Stress Tc-99m 1 day Rest Isotope: Tc-99m Sestamibi. Dose: 12.2 Date: 03/15/2020 Injection Time: 0915 Stress Isotope: Tc-99m Sestamibi. Dose: 38 Date: 03/15/2020 Injection Time: 1122 HR Resting HR Supine: 64 bpm Max Heart Rate (APMHR): 162 bpm Resting HR Standin bpm Target HR (85% APMHR): 137 bpm Max HR Achieved: 106 bpm % of APMHR: 65 Recovery HR: 75 bpm HR response to stress: Normal HR response to stress BP Resting BP Supine: 130/68 mmHg Resting BP Standin/72 mmHg Max BP: 150/70 mmHg Recovery BP: 134/70 mmHg BP response to stress: Normal blood pressure response to stress. ECG Resting ECG: Sinus Rhythm Ectopy: None. Stress ECG: Sinus Tachycardia ST Change: No significant ST segment changes noted. Arrhythmia: PVCs. Recovery ECG: Sinus Rhythm Recovery ST Change: No significant ST segment changes noted. Recovery Arrhythmia: None. Clinical Reason for Termination: Dyspnea Stress Symptoms: Dyspnea Exercise duration: 4 min21 sec Highest Stage Reached: Stage 2: 2.5 mph at 12% grade. Exercise capacity: 6.34 METs Stress ECG Conclusion 1. The patient exercised for 4 minutes but was unable to reach target heart rate. This was converted to a pharmacological stress test. 2. The ECG portion exam was nondiagnostic Stress Test Summary STAGE Time (mins) Speed (mph) Grade (%) HR BP SYMPTOMS METS Supine 64 134/68 Standing 70 126/72 1 3 1.7 10 94 138/76 Dyspnea. 4.6 1 min post Lexiscan injection 86 150/70 Cough. 3 min post Lexiscan injection 78 140/76 6 min post Lexiscan injection 75 134/70 MPI Conclusion The patient's ejection fraction was 71% with stress. There were no wall motion abnormalities. There was no evidence of ischemia on the imaging portion exam. This represents a normal SPECT stress test.
[2020-03-15] MEDS: Regadenoson 0.4 MG/5 ML SYR IVP (11:29)
== END 2020-03-15 01:15 ==
PROVIDERS: PCP Nurse Practitioner; Visit Provider Nurse Practitioner
DX: R06.09 Other forms of dyspnea (principal); M35.1 Other overlap syndromes; J44.9 Chronic obstructive pulmonary disease, unspecified; E78.5 Hyperlipidemia, unspecified; E11.9 Type 2 diabetes mellitus without complications; Z79.4 Long term (current) use of insulin; F17.210 Nicotine dependence, cigarettes, uncomplicated
CPT/HCPCS: 78452; 93017; J2785

== ENCOUNTER 2020-03-29 00:29 | Outpatient (CLI) | payer OTHER, SELFPAY ==
--- NOTE | 2020-03-29 08:00 | DI.DEXA_ITS ---
EXAM: XR DEXA BONE DENSITY W/WO SHEA CLINICAL HISTORY: SCREENING FOR OSTEOPOROSIS,SMOKER TECHNIQUE: Routine DEXA evaluation of the lumbar spine, hip, or forearm. COMPARISON: CR,XR XR HIP LT AP LAT ONLY from 04/21/2019prior DEXA scan November 2014 FINDINGS: Performed on a [employer] unit. Lateral image: No compression fracture evident. Lumbar Spine total T-score: 0.4. Prior 2014 reading was -0.2 Hip total T-score:-1.3. Prior 2014 reading was -0.3 Independent reading at the left femoral neck is a T-score of -1.9 Forearm total T-score: -0.5 IMPRESSION: Bone mineral density measures in the osteopenia range. Fracture risk is moderate. Note: Any spine fracture indicates 5x risk for subsequent spine fracture and 2x risk for subsequent h ip fracture. World Health Organization criteria for BMD interpretation classify patients: Normal...... T- Score at or above -1.0 Osteopenic... T- Score between -1.0 and -2.5 Osteoporosis... T-Score at or below -2.5
== END 2020-03-29 00:49 ==
PROVIDERS: PCP Nurse Practitioner; Visit Provider Nurse Practitioner
DX: M85.852 Other specified disorders of bone density and structure, left thigh (principal); F17.210 Nicotine dependence, cigarettes, uncomplicated
CPT/HCPCS: 77080

== ENCOUNTER 2020-04-05 01:48 | Outpatient (CLI) | payer SELFPAY ==
--- NOTE | 2020-04-05 11:35 | DI.DEXA_ITS ---
EXAM: XR DEXA BONE DENSITY W/WO SHEA CLINICAL HISTORY: REPEAT DEXA FOR ARTIFACT, NO CHARGE TECHNIQUE: Routine DEXA evaluation of the lumbar spine, hip, or forearm. COMPARISON: CR XR DEXA BONE DENSITY W/WO SHEA from 03/29/2020. Also November 2014 FINDINGS: Performed on a [employer] unit. Lateral image: No compression fracture evident. Lumbar Spine total T-score: -1.2 prior 2014 reading was -0.2 Hip total T-score:-1.3 prior 2014 reading was -0.3 Forearm total T-score: -0.5 IMPRESSION: Bone mineral density measures in the osteopenia range. Fracture risk is moderate. Note: Any spine fracture indicates 5x risk for subsequent spine fracture and 2x risk for subsequent h ip fracture. World Health Organization criteria for BMD interpretation classify patients: Normal...... T- Score at or above -1.0 Osteopenic... T- Score between -1.0 and -2.5 Osteoporosis... T-Score at or below -2.5
== END 2020-04-05 02:08 ==
PROVIDERS: PCP Nurse Practitioner; Visit Provider Nurse Practitioner
DX: M85.89 Other specified disorders of bone density and structure, multiple sites (principal)
CPT/HCPCS: 77080

== ENCOUNTER 2020-04-09 10:49 | Outpatient (CLI) | payer OTHER, SELFPAY ==
[2020-04-10 21:09] LABS: COVID-19 RT-PCR UVMMC Result Negative (Negative)
== END 2020-04-09 11:09 ==
PROVIDERS: PCP Nurse Practitioner; Visit Provider Nurse Practitioner
DX: R51.9 Headache, unspecified (principal); J02.9 Acute pharyngitis, unspecified; M79.18 Myalgia, other site; R13.10 Dysphagia, unspecified
CPT/HCPCS: U0003

== ENCOUNTER 2020-06-06 04:30 | Outpatient (CLI) | payer OTHER, SELFPAY ==
[2020-06-06 11:05] LABS: BUN 15 mg/dL (7-18); CREATININE 0.8 mg/dL (0.55-1.02); Calcium 9.6 mg/dL (8.5-10.1); Chloride 101 mmol/L (98-107); Glucose 141 mg/dL (74-106); Potassium 5.3 mmol/L (3.5-5.1); Sodium 137 mmol/L (136-145)
== END 2020-06-06 04:31 | disposition home or self-care (01) ==
LOC: LBO 04:31
PROVIDERS: PCP Nurse Practitioner; Visit Provider Nurse Practitioner
DX: R79.89 Other specified abnormal findings of blood chemistry (principal)
CPT/HCPCS: 36415; 80048

== ENCOUNTER 2020-07-18 03:29 | Outpatient (CLI) | payer OTHER, SELFPAY ==
[2020-07-18 12:34] LABS: Potassium 5.8 mmol/L (3.5-5.1)
== END 2020-07-18 03:30 | disposition home or self-care (01) ==
LOC: LBO 03:29
PROVIDERS: PCP Nurse Practitioner; Visit Provider Nurse Practitioner
DX: I10 Essential (primary) hypertension (principal)
CPT/HCPCS: 36415; 84132

== ENCOUNTER 2020-08-07 02:38 | Outpatient (CLI) | payer MEDICARE, OTHER, SELFPAY ==
[2020-08-07 10:40] LABS: Potassium 5.8 mmol/L (3.5-5.1)
[2020-08-07 11:05] LABS: POTASSIUM,URINE RANDOM 63 mmol/L
== END 2020-08-07 02:39 | disposition home or self-care (01) ==
LOC: LBO 02:38
PROVIDERS: PCP Nurse Practitioner; Visit Provider Nurse Practitioner
DX: E87.5 Hyperkalemia (principal)
CPT/HCPCS: 36415; 84132; 84133

== ENCOUNTER 2020-09-04 11:32 | Outpatient (CLI) | payer MEDICARE, OTHER, SELFPAY ==
--- NOTE | 2020-09-04 11:33 | DI.RAD_ITS ---
Exam(s) XR SHOULDER RT COMPLETE 2+V EXAM: XR SHOULDER RT COMPLETE 2+V CLINICAL HISTORY: F/U TECHNIQUE: COMPARISON: No exams were available for comparison FINDINGS: Two views were obtained. The cartilaginous joint space of the glenohumeral joint appears fairly well maintained. No bony or soft tissue abnormality seen. IMPRESSION: Negative examination of the shoulder. RADIATION DOSE DELIVERED: Total DLP
== END 2020-09-04 11:33 | disposition home or self-care (01) ==
LOC: DIORS 11:33
PROVIDERS: PCP Nurse Practitioner; Referring Provider Nurse Practitioner; Visit Provider Student in an Organized Health Care Education/Training Program
DX: M25.511 Pain in right shoulder (principal); M75.21 Bicipital tendinitis, right shoulder
CPT/HCPCS: 73030

== ENCOUNTER 2020-09-26 02:20 | Outpatient (CLI) | payer MEDICARE, OTHER, SELFPAY ==
[2020-09-26 10:50] LABS: Anion Gap 7.6 mmol/L (3-11); BUN 10 mg/dL (7-18); CO2 28.4 mmol/L (21.0-32.0); CREATININE 0.8 mg/dL (0.55-1.02); Calcium 9.2 mg/dL (8.5-10.1); Chloride 100 mmol/L (98-107); Glucose 213 mg/dL (74-106); Potassium 5.7 mmol/L (3.5-5.1); Sodium 136 mmol/L (136-145)
== END 2020-09-26 02:21 | disposition home or self-care (01) ==
LOC: LBO 02:21
PROVIDERS: PCP Nurse Practitioner; Visit Provider Nurse Practitioner
DX: E87.5 Hyperkalemia (principal)
CPT/HCPCS: 36415; 80048

== ENCOUNTER 2020-12-27 11:06 | Emergency (ER) | payer MEDICARE, OTHER, SELFPAY ==
--- NOTE | 2020-12-27 12:30 | DI.RAD_ITS ---
Exam(s) XR CHEST 2V PA LATERAL EXAM: XR CHEST 2V PA LATERAL CLINICAL HISTORY: shortness of breath, r/o acute disease. TECHNIQUE: 2D digital imaging was performed. COMPARISON: CR CHEST 2 VIEWS PA,LAT from 08/11/2012 CR XR CHEST 2V PA LATERAL from 06/24/2019 FINDINGS: Heart size is normal. The mediastinum is not widened. Lung is clear. Slightly increased markings in the lateral right lung noted, possibly the scarring as appears to been present June 2019 as well as 2012 chest x-ray IMPRESSION: No acute pulmonary findings.Right lung scarring which was evident on prior chest x-rays. DATA REPOSITORY: RADIATION DOSE DELIVERED:
[2020-12-27 13:04] LABS: Abs Immature Grans 0.13 10^3/uL (0.0-0.06); Absolute Basophil Count 0.05 10^3/uL (0.0-0.2); Absolute Lymphocyte Count 2.86 10^3/uL (1.2-3.4); Basophils % 0.3; Eosinophils % 0.6; HGB 13.1 g/dL (11.2-15.7); Immature Grans % 0.8; MCHC 34.5 % (32.0-36.0); MCV 92.7 fL (80-95); MPV 8.6 fL (8.0-11.0); Monocytes % 8.6; Neutrophils % 71.7; Nucleated RBC 0 %; Platelet Count 378 10^3/uL (130-400); RDW 12.1 % (11.7-14.6); RDW-SD 41.7 fL; WBC 15.89 10^3/uL (4.4-10.8)
[2020-12-27 13:05] LABS: Absolute Monocyte Count 1.37 10^3/uL (0.1-0.8); Absolute Neutrophil Count 11.39 10^3/uL (1.2-6.7)
[2020-12-27 13:20] LABS: ALT 33 U/L (14-59); AST 31 U/L (15-37); Albumin 3.5 g/dL (3.4-5.0); Alkaline Phosphatase 161 U/L (46-116); Anion Gap 7.9 mmol/L (3-11); BUN 8 mg/dL (7-18); Bilirubin, Total 0.3 mg/dL (0.2-1.0); CO2 28.1 mmol/L (21.0-32.0); CREATININE 0.9 mg/dL (0.55-1.02); Calcium 8.7 mg/dL (8.5-10.1); Chloride 91 mmol/L (98-107); Glucose 250 mg/dL (74-106); Magnesium 1.4 mg/dL (1.8-2.4); Potassium 4.4 mmol/L (3.5-5.1); Sodium 127 mmol/L (136-145); Total Protein 6.6 g/dL (6.4-8.2)
[2020-12-27 13:22] LABS: Troponin I < 0.05 ng/mL (<0.06)
--- NOTE | 2020-12-27 13:56 | NUR.NOTE ---
patient refused EKG. rechecking vitals in ED10. Nursing Note:
[2020-12-27 14:05] VITALS: BP 154/67; PULSE 60; RESP 20; TEMP 36.1; O2SAT 97
--- NOTE | 2020-12-27 14:06 | W.ED.GENAD ---
Discharge Plan Disposition Patient Disposition: HOME Condition: Stable Discharge Details Clinical Impression: Acute exacerbation of chronic obstructive pulmonary disease, Current smoker Primary Care Provider: Imelda Beckman ED Provider: Marcy Pinto Home Meds and New Rx's Prescriptions: New prednisone 20 mg tablet See Rx Instructions .ROUTE .COMPLEX Qty: 18 RF: 0 Continued nystatin 100,000 unit/gram cream 1 applic TP TID Qty: 15 RF: 1 Lac-Hydrin Five 5 % lotion 1 applic TP BID Qty: 226 RF: 0 betamethasone dipropionate 0.05 % cream 1 applic topical BID PRN (Reason: eczma bilateral foreams) Qty: 45 RF: 1 Lantus Solostar U-100 Insulin 100 unit/mL (3 mL) insulin pen See Rx Instructions subcut HS Qty: 15 RF: 12 venlafaxine 75 mg capsule,extended release 24hr 75 mg PO DAILY Qty: 90 RF: 4 (DME) pen needle, diabetic [Pen Needle] 31 gauge x 5/16 needle 1 ea Miscellaneous qid and hs Qty: 540 RF: 3 pantoprazole 20 mg tablet,delayed release (DR/EC) 20 mg PO DAILY Qty: 90 RF: 3 lisinopril 10 mg tablet 10 mg PO DAILY Qty: 90 RF: 3 (DME) OneTouch Ultra Test Strip 1 ea Miscellaneous 6 X A DAY Qty: 540 RF: 3 doxycycline hyclate 100 mg capsule 100 mg PO BID Qty: 14 RF: 0 ipratropium-albuterol 0.5 mg-3 mg(2.5 mg base)/3 mL solution for nebulization 3 ml inhalation QID PRN (Reason: wheezing) Qty: 180 RF: 0 benzonatate [Tessalon Perles] 100 mg capsule 100 mg PO TID PRN (Reason: cough) Qty: 14 RF: 0 acetaminophen [Tylenol] 325 MG tablet 325 mg PO PRN RF: 0 aspirin [Aspir-81] 81 MG tablet,delayed release (DR/EC) 81 mg PO DAILY RF: 0 fexofenadine 180 MG tablet 180 mg PO BID RF: 0 levothyroxine 125 mcg tablet 125 mcg PO DAILY Qty: 180 RF: 3 budesonide-formoterol [Symbicort] 80-4.5 mcg/actuation HFA aerosol inhaler 2 puff Inhalation BID Qty: 3 RF: 3 ibuprofen 800 mg tablet 800 mg PO TID Qty: 90 RF: 3 simvastatin 40 mg tablet 40 mg PO DAILY Qty: 90 RF: 2 insulin lispro [Humalog KwikPen Insulin] 100 unit/mL insulin pen See Rx Instructions subcut as directed Qty: 15 RF: 0 (DME) Dexcom 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 Consultant Misc See Rx Instructions .ROUTE .MEDSUPPLY Qty: 1 RF: 0 Basaglar KwikPen U-100 Insulin 100 unit/mL (3 mL) insulin pen 1 unit subcut QPM RF: 0 insulin lispro [Humalog KwikPen Insulin] 100 unit/mL insulin pen 1 unit subcut TID RF: 0 hydroxychloroquine [Plaquenil] 200 mg tablet 200 mg PO BID RF: 0 diclofenac sodium [Voltaren Arthritis Pain] 1 % gel 2 g topical QID PRNRF: 0 albuterol sulfate [ProAir HFA] 8.5 GM HFA aerosol inhaler 2 puff Inhalation Q6H PRN Qty: 3 RF: 3 albuterol sulfate 90 mcg/actuation aerosol powdr breath activated 2 inh IH Q6H PRN (Reason: shortness of breath or wheezing) Qty: 1 RF: 0 Discharge Instructions Instructions: How to Stop Smoking (ED), COPD (Chronic Obstructive Pulmonary Disease) (ED), Hypomagnesemia (ED) Additional Instructions: Drink plenty of fluids and get plenty of rest. Use your albuterol inhaler and nebulizer machine as needed and directed for cough, wheezing or shortness of breath. A prescription for steroids has been sent electronically to your pharmacy. Take these as directed until finished. Continue and finish your antibiotics. Continue to check your sugar regularly and adjust your insulin as directed as steroids can raise your blood sugar. Your magnesium was low today. You can supplement magnesium in your diet. Follow-up with your primary care doctor in 1 week. Return to the emergency department with any worsening or new concerning symptoms. If your symptoms do not improve, consider repeat Covid-19 testing. Discharge Data Discharge Date/Time-TO BE ENTERED AT DEPARTURE: 12/27/20 15:09 Discharge Physician: Marcy Pinto Medical Decision Making 60-year-old female with a history of COPD, diabetes, hyperlipidemia, chronic tobacco smoker and lupus presents for cough and shortness of breath for the past several days, diagnosed with bronchitis versus a COPD exacerbation and started on albuterol, steroids, Tessalon Perles and doxycycline presents for persistent cough and shortness of breath. Patient seen during [facility] downtime and triage and nursing records available on paper. Patient states her main concern today is that she does not have pneumonia. Patient was referred for chest x-ray which was negative. Her vitals are within normal limits and she is speaking in full sentences and demonstrates no signs of respiratory distress. Her oxygen saturation is 97% on room air. She does have scattered wheezing throughout. Patient was offered a neb treatment but declined stating she only wanted to make sure she did not have pneumonia. Discussed at length with patient that her symptoms may be persistent due to her tobacco smoking. History and presentation does not appear consistent with ACS, PE or dissection. She is advised to consider smoking cessation for overall health benefit and to help her current symptoms potentially improve. Discussed that her tobacco smoking may be causing delayed improvement of her symptoms. We will treat with another round of steroids. She is advised to continue her albuterol and take her antibiotics until finished. Advised to follow up with the primary care doctor for re-evaluation. Usual and customary return precautions given prior to discharge. Medical Records Medical records reviewed: Yes I reviewed the patient's medical records. Imaging Data Radiologic Study: Radiologist's impression: XR CHEST 2V PA LATERAL CLINICAL HISTORY: shortness of breath, r/o acute disease. TECHNIQUE: 2D digital imaging was performed. COMPARISON: CR CHEST 2 VIEWS PA,LAT from 08/11/2012 CR XR CHEST 2V PA LATERAL from 06/24/2019 FINDINGS: Heart size is normal. The mediastinum is not widened. Lung is clear. Slightly increased markings in the lateral right lung noted, possibly the scarring as appears to been present June 2019 as well as 2012 chest x-ray IMPRESSION: No acute pulmonary findings.Right lung scarring which was evident on prior chest x-rays. HPI General Mode of arrival: ambulatory. Date/Time Provider Initiated Documentation: 12/27/20 12:44. Limitations to Documentation: no limitations. Information obtained by: patient. HPI Narrative: Patient is a 60-year-old female with a history of COPD, chronic tobacco smoker, diabetes, hyperlipidemia, lupus and hypothyroidism who presents for persistent coughing and shortness of breath since diagnosed with a COPD exacerbation or acute bronchitis and started on albuterol, Tessalon Perles, prednisone and doxycycline. He states she was seen at [facility] medical urgent care for the symptoms this week and was started on these medications but does not feel any better. Patient states she smokes a pack of cigarettes daily. She denies any known fever, chest pain, vomiting or diarrhea. She states she was also recently tested for Covid which was negative and denies any known exposure to Covid. She states she has been eating and drinking normally. Related Data Home Medications Medication Instructions Recorded Confirmed acetaminophen [Tylenol] 325 mg PO PRN 06/29/12 12/28/20 aspirin [Aspir-81] 81 mg PO DAILY tab 06/29/12 12/28/20 fexofenadine 180 mg PO BID 07/21/14 12/28/20 albuterol sulfate [ProAir HFA] 2 puff INHALATION Q6H PRN #3 08/15/16 12/28/20 inhaler ammonium lactate 5 % lotion 1 applic TP BID #226 gm 04/21/18 12/28/20 nystatin 100,000 unit/gram topical 1 applic TP TID #15 gm 06/07/18 12/28/20 cream levothyroxine 125 mcg tablet 125 mcg PO DAILY #180 tab-cap 09/06/18 12/28/20 budesonide-formoterol HFA 80 2 puff INHALATION BID #3 inhaler 12/14/18 12/28/20 mcg-4.5 mcg/actuation aerosol inhaler ibuprofen 800 mg tablet 800 mg PO TID #90 tab 12/20/18 12/28/20 insulin glargine 100 unit/mL (3 See Rx Instructions SUBCUT HS #15 04/26/19 12/28/20 mL) subcutaneous pen ml albuterol sulfate 2 inh IH Q6H PRN #1 each 06/24/19 12/28/20 simvastatin 40 mg tablet 40 mg PO DAILY #90 tab 11/29/19 12/28/20 venlafaxine 75 mg capsule,extended 75 mg PO DAILY #90 cap 12/22/19 12/28/20 release 24 hr pen needle, diabetic 31 gauge x #540 ndl 02/16/20 12/28/2008/19 Humalog KwikPen Insulin 100 See Rx Instructions SUBCUT as 02/27/20 12/28/20 unit/mL subcutaneous directed #15 ml NS betamethasone dipropionate 0.05 % 1 applic TOPICAL BID PRN #45 g 04/19/20 12/28/20 topical cream pantoprazole 20 mg tablet,delayed 20 mg PO DAILY #90 tab 06/20/20 12/28/20 release blood-glucose meter,continuous #1 ea 09/07/20 12/28/20 Meaningouch Ultra Test #540 strip NS 11/08/20 12/28/20 lisinopril 10 mg tablet 10 mg PO DAILY #90 tab 11/08/20 12/28/20 insulin glargine 100 unit/mL (3 1 unit SUBCUT QPM ml 12/05/20 12/28/20 mL) subcutaneous pen insulin lispro 100 unit/mL 1 unit SUBCUT TID ml 12/05/20 12/28/20 subcutaneous pen diclofenac sodium 1 % topical gel 2 g TOPICAL QID PRN 12/12/20 12/28/20 hydroxychloroquine 200 mg tablet 200 mg PO BID tab 12/12/20 12/28/20 benzonatate 100 mg capsule 100 mg PO TID PRN #14 cap 12/20/20 12/20/20 doxycycline hyclate 100 mg capsule 100 mg PO BID #14 cap 12/20/20 12/20/20 ipratropium 0.5 mg-albuterol 3 mg 3 ml INHALATION QID PRN #180 ml 12/20/20 12/20/20 (2.5 mg base)/3 mL nebulization soln prednisone See Rx Instructions .ROUTE 12/27/20 .COMPLEX #18 tab Previous Rx's Medication Instructions Recorded albuterol sulfate [ProAir HFA] 2 puff INHALATION Q6H PRN #3 08/15/16 inhaler ammonium lactate 5 % lotion 1 applic TP BID #226 gm 04/21/18 nystatin 100,000 unit/gram topical 1 applic TP TID #15 gm 06/07/18 cream ibuprofen 800 mg tablet 800 mg PO TID #90 tab 12/20/18 insulin glargine 100 unit/mL (3 See Rx Instructions SUBCUT HS #15 04/26/19 mL) subcutaneous pen ml albuterol sulfate 2 inh IH Q6H PRN #1 each 06/24/19 simvastatin 40 mg tablet 40 mg PO DAILY #90 tab 11/29/19 venlafaxine 75 mg capsule,extended 75 mg PO DAILY #90 cap 12/22/19 release 24 hr pen needle, diabetic 31 gauge x #540 ndl 02/16/2008/19 Humalog KwikPen Insulin 100 See Rx Instructions SUBCUT as 02/27/20 unit/mL subcutaneous directed #15 ml NS betamethasone dipropionate 0.05 % 1 applic TOPICAL BID PRN #45 g 04/19/20 topical cream pantoprazole 20 mg tablet,delayed 20 mg PO DAILY #90 tab 06/20/20 release OneTouch Ultra Test #540 strip NS 11/08/20 lisinopril 10 mg tablet 10 mg PO DAILY #90 tab 11/08/20 benzonatate 100 mg capsule 100 mg PO TID PRN #14 cap 12/20/20 doxycycline hyclate 100 mg capsule 100 mg PO BID #14 cap 12/20/20 ipratropium 0.5 mg-albuterol 3 mg 3 ml INHALATION QID PRN #180 ml 12/20/20 (2.5 mg base)/3 mL nebulization soln prednisone See Rx Instructions .ROUTE 12/27/20 .COMPLEX #18 tab Allergies Allergy/AdvReac Type Severity Reaction Status Date / Time hydroxychloroquine Allergy Severe hives-01/23 Verified 12/20/20 16:30 17 Penicillins Allergy Intermediate Hives Verified 12/20/20 16:30 gabapentin [From Neurontin] AdvReac Severe Pt. states Verified 12/20/20 16:30 medication messed up her head. General BRIANNA: 2 Review of Systems All systems reviewed & are unremarkable except as noted in HPI and below Constitutional Constitutional: Reports as per HPI, Denies chills and Denies fever(s) Eyes Eyes: Denies blurry vision ENT Ears, Nose, Mouth, and Throat: Denies dizziness, Denies sore throat and Denies throat swelling Cardiovascular Cardiovascular: Denies chest pain and Reports dyspnea Respiratory Respiratory: Reports cough and Reports dyspnea Gastrointestinal Gastrointestinal: Denies abdominal pain, Denies diarrhea and Denies vomiting Genitourinary Genitourinary: Denies hematuria and Denies dysuria Musculoskeletal Musculoskeletal: Denies back pain and Denies numbness Integumentary/Breasts Skin/Breast: Denies lesions and Denies rash Neurologic Neurologic: Denies dizziness, Denies localized weakness and Denies numbness Allergic/Immunologic Allergic/Immunologic: Denies throat swelling [facility] Medical History Abnormal blood chemistry (08/05/12) Abnormal blood chemistry Abnormal mammogram of right breast (12/11/15) Actinic keratosis (01/22/17) Alcohol abuse Anxiety and depression Atherosclerosis of aorta (04/14/13) Seen on L-spine x-ray 2012 No aneurysm Larsen esophagus Larsen esophagus 05/11/20 [facility] - Upper GI Endoscopy Repeat EGD 3 yrs. Larsen's esophagus determined by biopsy (04/25/17) Carpal tunnel syndrome (08/05/12) Carpal tunnel syndrome of left wrist (03/26/16) Cervicalgia (08/05/12) myofascial syndrome; has limited ROM (flex and ext) Cervicalgia (08/05/12) Chronic idiopathic urticaria (09/13/14) 07/2014. [place] [facility] [place] and antihistamines. 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 COPD (chronic obstructive pulmonary disease) Depression Diabetes mellitus (06/19/15) CAIN (dyspnea on exertion) Fall Gastroparesis Gouty arthritis of left great toe Hyperlipidemia (01/05/13) Statin Hypothyroidism Hypothyroidism Postablative Leiomyoma (06/29/15) Lung fungal infection 04/1999 R lung wedge resection Lung nodule, solitary Lupus Diagnosed 2018. 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 stopped ERT 2018. Rx with venlafaxine with satisfactory results. Muscle strain Nonproliferative diabetic retinopathy (08/05/12) Mild as noted by [employer]. Peripheral vertigo (08/05/12) Right lower lobe pneumonia Right rotator cuff tendinitis MRI with probable partial tear of supraspinatus Shingles 2018. 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 Mullins Ligation of fallopian tube Partial thyroidectomy R knee surgery at child; Vonda R lung biopsy/granuloma Tonsillectomy Tooth extraction (~2014) 14 Teeth Extracted, dentures October 2014 Vaginal hysterectomy (~2002) with unilateral R oophorectomy. Family History Mother Mental disorder Anxiety on Lorazepam Aneurysm Sister Osteoarthritis Severe; thumb rebuilt and elbow Maternal Grandfather , Colon cancer Personal history of malignant neoplasm Social History Smoking/Tobacco Use Status: Current every day Quit status: not considering quitting Counseling given: provider counseling Smoking risk assessment performed?: Yes Alcohol Intake: current Alcohol Intake frequency: a few times a week Alcohol type: beer Drug use: Never Substance use type: does not use Adopted: No Foster care: No Household members: spouse and other Details: H-Ed. 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 Current gender identity: other What type of physical activity do you participate in: walking Duration: 30-45 minutes/day Frequency: 5-6 times per week Do you feel safe at home: Yes Do you feel safe in your relationship?: Yes History History 4 Para Hx # Term Pregnancies 3 Multiple births Hx # Pregnancies Ectopic pregnancies AB induced Hx Number of Living Children AB spontaneous Exam Const General: cooperative and no acute distress HENMT Head: normal to inspection General nose exam: external nose normal Face and sinus: normal facial exam Mouth: oral mucosae normal Eyes General: appearance normal, both eyes and all related structures EOM: EOM intact bilaterally Neck Neck: normal visual inspection and No submandibular swelling Lymphatic: no lymphadenopathy noted Chest Chest: normal inspection of the chest and no tenderness Resp Effort & Inspection: normal respiratory effort and able to speak in complete sentences Auscultation: wheezes scattered wheezes Cardio Rate: regular rate Rhythm: regular rhythm GI Inspection: normal to inspection Palpation: soft, not firm, not rigid and nontender Auscultation: normal bowel sounds Skin General skin exam: no rashes or lesions noted Neuro General: patient alert, patient awake and patient oriented x3 Cognition: normal cognition Speech: speech normal Motor: muscle tone normal throughout Sensory Exam: no sensory deficits noted Extrem General: normal to inspection, full ROM, capillary refill normal, no calf tenderness bilaterally and no edema Psych Appearance: grossly normal Mental Status: mental status grossly normal Speech and Movement: speech and movement normal Affect: normal affect Course Vital Signs Vital signs: Vital Signs Temperature 97.0 F L 12/27/20 14:05 Pulse 60 12/27/20 14:05 Respiratory Rate 20 12/27/20 14:05 Blood Pressure 154/67 H 12/27/20 14:05 Pulse Oximetry 97 12/27/20 14:05 Temperature 97.0 F L 12/27/20 14:05 Temperature Source Tympanic 12/27/20 14:05 Pulse 60 12/27/20 14:05 Respiratory Rate 20 12/27/20 14:05 Blood Pressure 154/67 H 12/27/20 14:05 Pulse Oximetry 97 12/27/20 14:05 Oxygen Delivery Method Room Air 12/27/20 14:05 Oxygen Flow Rate 0 12/27/20 14:05 Lab/Test Results Lab/Test Results: Laboratory Tests Range/Units 12/27/20 12/27/20 12:50 12:50 WBC (4.4-10.8) 10^3/uL 15.89 H RBC (3.93-5.22) 10^6/uL 4.10 Hgb (11.2-15.7) g/dL 13.1 Hct (36.0-46.0) % 38.0 MCV (80-95) fL 92.7 MCH (27.0-33.0) pg 32.0 MCHC (32.0-36.0) % 34.5 RDW (11.7-14.6) % 12.1 Plt Count (130-400) 10^3/uL 378 MPV (8.0-11.0) fL 8.6 Immature Gran % 0.8 Neutrophils % 71.7 Lymphocytes % 18.0 Monocytes % 8.6 Eosinophils % 0.6 Basophils % 0.3 Nucleated RBC % % 0 Absolute Neutrophils (1.2-6.7) 10^3/uL 11.39 H Absolute Lymphocytes (1.2-3.4) 10^3/uL 2.86 Absolute Monocytes (0.1-0.8) 10^3/uL 1.37 H Absolute Eosinophils (0.0-0.7) 10^3/uL 0.10 Absolute Basophils (0.0-0.2) 10^3/uL 0.05 Sodium (136-145) mmol/L 127 L Potassium (3.5-5.1) mmol/L 4.4 Chloride (98-107) mmol/L 91 L Carbon Dioxide (21.0-32.0) mmol/L 28.1 Anion Gap (3-11) mmol/L 7.9 BUN (7-18) mg/dL 8 Creatinine (0.55-1.02) mg/dL 0.9 Estimated GFR/1.73 m2 (mL/min/1.73m2) >= 60.00 Glucose (74-106) mg/dL 250 H Calcium (8.5-10.1) mg/dL 8.7 Magnesium (1.8-2.4) mg/dL 1.4 L Total Bilirubin (0.2-1.0) mg/dL 0.3 AST (15-37) U/L 31 ALT (14-59) U/L 33 Alkaline Phosphatase (46-116) U/L 161 H Troponin I (<0.06) ng/mL < 0.05 Total Protein (6.4-8.2) g/dL 6.6 Albumin (3.4-5.0) g/dL 3.5
[2020-12-27] MEDS: predniSONE 20 MG TAB 60 MG PO (15:08)
== END 2020-12-27 15:09 | disposition home or self-care (01) ==
PROVIDERS: Emergency Provider Physician Assistant; PCP Nurse Practitioner
DX: J44.1 Chronic obstructive pulmonary disease with (acute) exacerbation (principal); F17.210 Nicotine dependence, cigarettes, uncomplicated
CPT/HCPCS: 80053; 99283; 71046; 83735; 84484; 85025; J7512

== ENCOUNTER 2021-01-09 01:43 | Outpatient (CLI) | payer MEDICARE, OTHER, SELFPAY ==
--- NOTE | 2021-01-09 07:00 | DI.MAMMO_ITS ---
Exam(s) MAMMO SCREENING EXAM: MAMMO SCREENING CLINICAL HISTORY: screening,Z12.39 TECHNIQUE: Bilateral full field digital CC and MLO mammographic images were obtained with 3D tomosyn thesis and utilizing computer aided detection (CAD). COMPARISON: Available for comparison. FINDINGS: Masses/Architectural Distortion: None seen. Microcalcifications: No suspicious pleomorphic-type are seen. There are stable calcifications in both breasts. Skin Thickening/Nipple Retraction: None. IMPRESSION: 1. No significant interval change with no specific features of malignancy noted. 2. Unless there is more urgent need, screening mammography is recommended, as per [employer] [place] [employer] guidelines. BI-RADS Category 2 - Benign Findings Breast Density - Category B - Scattered areas of fibroglandular density Breast density category C or D implies that the patient has dense breast tissue. Dense breast tissue is very common and is not abnormal but dense breast tissue can make it harder to find cancer on a ma mmogram. Also, dense breast tissue may increase their breast cancer risk. This information about the result of the mammogram report was provided to the patient to raise their awareness. Use this report when you speak with the patient about their risks for breast cancer, which includes their family hist ory. At that time, you may recommend for more screening tests (Ultrasound or MRI) as they might be us eful based on their risk. A negative radiographic report should not delay biopsy if a dominant or clinically suspicious mass is present. Up to ten percent of cancers are not identified on mammography. A negative report may reinforce clinical impression. Adenosis and dense breasts may obscure an underlying neoplasm. False positive reports average 6 to 10%. Patient will receive a letter notifying them of these results.
== END 2021-01-09 02:03 ==
PROVIDERS: PCP Nurse Practitioner; Visit Provider Nurse Practitioner
DX: Z12.31 Encounter for screening mammogram for malignant neoplasm of breast (principal)
CPT/HCPCS: 77063; 77067

== ENCOUNTER 2021-01-09 02:24 | Outpatient (CLI) | payer MEDICARE, OTHER, SELFPAY ==
[2021-01-09 12:16] LABS: HCT 41.1 % (36.0-46.0); MCHC 31.6 % (32.0-36.0); MCV 97.9 fL (80-95); MPV 10.5 fL (8.0-11.0); Platelet Count 336 10^3/uL (130-400); RDW 12.8 % (11.7-14.6); RDW-SD 45.6 fL; WBC 7.91 10^3/uL (4.4-10.8)
[2021-01-09 12:49] LABS: ALT 33 U/L (14-59); AST 24 U/L (15-37); Albumin 3.6 g/dL (3.4-5.0); Alkaline Phosphatase 149 U/L (46-116); Anion Gap 5.2 mmol/L (3-11); BUN 8 mg/dL (7-18); Bilirubin, Total 0.3 mg/dL (0.2-1.0); CO2 30.8 mmol/L (21.0-32.0); CREATININE 0.9 mg/dL (0.55-1.02); Calcium 9.3 mg/dL (8.5-10.1); Calculated LDL 99 mg/dL (<100); Chloride 101 mmol/L (98-107); Cholesterol 224 mg/dL (<200); Glucose 190 mg/dL (74-106); HDL Cholesterol 109 mg/dL (40-60); Sodium 137 mmol/L (136-145); TSH (W/Ref FT4) 7.13 uIU/mL (0.36-3.74); Total Protein 6.6 g/dL (6.4-8.2); Triglyceride 82 mg/dL (<150)
[2021-01-09 13:17] LABS: FREE T4 0.86 ng/dL (0.76-1.46)
== END 2021-01-09 02:25 | disposition home or self-care (01) ==
PROVIDERS: PCP Nurse Practitioner; Visit Provider Nurse Practitioner
DX: I10 Essential (primary) hypertension (principal); E10.8 Type 1 diabetes mellitus with unspecified complications
CPT/HCPCS: 36415; 80053; 80061; 85027; 84439; 84443

== ENCOUNTER 2021-01-16 03:53 | Outpatient (CLI) | payer MEDICARE, OTHER, SELFPAY ==
[2021-01-16 13:14] LABS: Anion Gap 7.1 mmol/L (3-11); BUN 8 mg/dL (7-18); CO2 28.9 mmol/L (21.0-32.0); CREATININE 0.8 mg/dL (0.55-1.02); Chloride 95 mmol/L (98-107); Glucose 257 mg/dL (74-106); Magnesium 1.7 mg/dL (1.8-2.4); Potassium 5.5 mmol/L (3.5-5.1); Sodium 131 mmol/L (136-145)
== END 2021-01-16 03:54 | disposition home or self-care (01) ==
LOC: LOS 03:54
PROVIDERS: PCP Nurse Practitioner; Visit Provider Nurse Practitioner
DX: I10 Essential (primary) hypertension; E03.9 Hypothyroidism, unspecified; E87.5 Hyperkalemia; R79.0 Abnormal level of blood mineral
CPT/HCPCS: 36415; 80048; 83735; 84443

== ENCOUNTER 2021-02-01 01:15 | Outpatient (CLI) | payer MEDICARE, OTHER, SELFPAY ==
[2021-02-01 13:22] LABS: Anion Gap 5.8 mmol/L (3-11); BUN 11 mg/dL (7-18); CO2 29.2 mmol/L (21.0-32.0); CREATININE 0.9 mg/dL (0.55-1.02); Calcium 9.3 mg/dL (8.5-10.1); Chloride 99 mmol/L (98-107); Glucose 275 mg/dL (74-106); Sodium 134 mmol/L (136-145)
[2021-02-01 13:31] LABS: Potassium 6.7 mmol/L (3.5-5.1)
== END 2021-02-01 01:16 | disposition home or self-care (01) ==
LOC: LOS 01:16
PROVIDERS: PCP Nurse Practitioner; Visit Provider Nurse Practitioner
DX: E87.5 Hyperkalemia (principal)
CPT/HCPCS: 36415; 80048

== ENCOUNTER 2021-02-01 14:23 | Emergency (ER) | payer MEDICARE, OTHER, SELFPAY ==
--- NOTE | 2021-02-01 14:30 | RT.EKG_ITS ---
APPROVED REPORT Exam: Resting ECG Reason for Exam: high potassium Patient Location: E HR:82 bpm ECG Measurements Heart Rate 82 AXIS MS 149 P 72 QRSd 87 QRS 78 QT 375 T 63 QTc 437 Conclusion Sinus rhythm...normal P axis, V-rate 60- 99 Physician: no significant peaking of t waves. stable
[2021-02-01 14:35] VITALS: BP 142/75; PULSE 87; TEMP 37.1; O2SAT 96
[2021-02-01 15:18] LABS: Abs Immature Grans 0.03 10^3/uL (0.0-0.06); Absolute Basophil Count 0.03 10^3/uL (0.0-0.2); Absolute Eosinophil Count 0.08 10^3/uL (0.0-0.7); Absolute Lymphocyte Count 1.66 10^3/uL (1.2-3.4); Absolute Monocyte Count 0.82 10^3/uL (0.1-0.8); Absolute Neutrophil Count 4.37 10^3/uL (1.2-6.7); Basophils % 0.4; Eosinophils % 1.1; HCT 36.3 % (36.0-46.0); HGB 12.3 g/dL (11.2-15.7); Immature Grans % 0.4; Lymphocytes % 23.7; MCH 31.8 pg (27.0-33.0); MCHC 33.9 % (32.0-36.0); MCV 93.8 fL (80-95); MPV 9.4 fL (8.0-11.0); Monocytes % 11.7; Neutrophils % 62.7; Nucleated RBC 0 %; Platelet Count 285 10^3/uL (130-400); RBC 3.87 10^6/uL (3.93-5.22); RDW 12.2 % (11.7-14.6); RDW-SD 42.5 fL; WBC 6.99 10^3/uL (4.4-10.8)
[2021-02-01 15:30] LABS: ALT 32 U/L (14-59); AST 38 U/L (15-37); Albumin 3.6 g/dL (3.4-5.0); Alkaline Phosphatase 181 U/L (46-116); Anion Gap 7.5 mmol/L (3-11); BUN 11 mg/dL (7-18); Bilirubin, Total 0.2 mg/dL (0.2-1.0); CO2 25.5 mmol/L (21.0-32.0); CREATININE 0.9 mg/dL (0.55-1.02); Calcium 8.6 mg/dL (8.5-10.1); Chloride 97 mmol/L (98-107); Glucose 244 mg/dL (74-106); Potassium 4.9 mmol/L (3.5-5.1); Sodium 130 mmol/L (136-145); Total Protein 6.8 g/dL (6.4-8.2)
--- NOTE | 2021-02-01 15:44 | W.ED.GENAD ---
Discharge Plan Disposition Patient Disposition: HOME Condition: Good Discharge Details Clinical Impression: Electrolyte abnormality Primary Care Provider: Imelda Beckman ED Provider: Marline Mcmanus Home Meds and New Rx's Prescriptions: Continued nystatin 100,000 unit/gram cream 1 applic TP TID Qty: 15 RF: 1 Lac-Hydrin Five 5 % lotion 1 applic TP BID Qty: 226 RF: 0 betamethasone dipropionate 0.05 % cream 1 applic topical BID PRN (Reason: eczma bilateral foreams) Qty: 45 RF: 1 Lantus Solostar U-100 Insulin 100 unit/mL (3 mL) insulin pen See Rx Instructions subcut HS Qty: 15 RF: 12 venlafaxine 75 mg capsule,extended release 24hr 75 mg PO DAILY Qty: 90 RF: 4 (DME) pen needle, diabetic [Pen Needle] 31 gauge x 5/16 needle 1 ea Miscellaneous qid and hs Qty: 540 RF: 3 pantoprazole 20 mg tablet,delayed release (DR/EC) 20 mg PO DAILY Qty: 90 RF: 3 lisinopril 10 mg tablet 10 mg PO DAILY Qty: 90 RF: 3 (DME) OneTouch Ultra Test Strip 1 ea Miscellaneous 6 X A DAY Qty: 540 RF: 3 doxycycline hyclate 100 mg capsule 100 mg PO BID Qty: 14 RF: 0 ipratropium-albuterol 0.5 mg-3 mg(2.5 mg base)/3 mL solution for nebulization 3 ml inhalation QID PRN (Reason: wheezing) Qty: 180 RF: 0 benzonatate [Tessalon Perles] 100 mg capsule 100 mg PO TID PRN (Reason: cough) Qty: 14 RF: 0 acetaminophen [Tylenol] 325 MG tablet 325 mg PO PRN RF: 0 aspirin [Aspir-81] 81 MG tablet,delayed release (DR/EC) 81 mg PO DAILY RF: 0 fexofenadine 180 MG tablet 180 mg PO BID RF: 0 levothyroxine 125 mcg tablet 125 mcg PO DAILY Qty: 180 RF: 3 budesonide-formoterol [Symbicort] 80-4.5 mcg/actuation HFA aerosol inhaler 2 puff Inhalation BID Qty: 3 RF: 3 ibuprofen 800 mg tablet 800 mg PO TID Qty: 90 RF: 3 simvastatin 40 mg tablet 40 mg PO DAILY Qty: 90 RF: 2 insulin lispro [Humalog KwikPen Insulin] 100 unit/mL insulin pen See Rx Instructions subcut as directed Qty: 15 RF: 0 (DME) 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 See Rx Instructions .ROUTE .MEDSUPPLY Qty: 1 RF: 0 Basaglar KwikPen U-100 Insulin 100 unit/mL (3 mL) insulin pen 1 unit subcut QPM RF: 0 insulin lispro [Humalog KwikPen Insulin] 100 unit/mL insulin pen 1 unit subcut TID RF: 0 hydroxychloroquine [Plaquenil] 200 mg tablet 200 mg PO BID RF: 0 diclofenac sodium [Voltaren Arthritis Pain] 1 % gel 2 g topical QID PRNRF: 0 sodium polystyrene sulfonate Powder See Rx Instructions PO DAILY Qty: 453.6 RF: 0 albuterol sulfate [ProAir HFA] 8.5 GM HFA aerosol inhaler 2 puff Inhalation Q6H PRN Qty: 3 RF: 3 albuterol sulfate 90 mcg/actuation aerosol powdr breath activated 2 inh IH Q6H PRN (Reason: shortness of breath or wheezing) Qty: 1 RF: 0 prednisone 20 mg tablet See Rx Instructions .ROUTE .COMPLEX Qty: 18 RF: 0 Discharge Instructions Additional Instructions: Please follow-up with your primary care physician, your potassium today was 4.9 Your sodium is 130 Please return should you have new or worsening complaints Discharge Data Discharge Date/Time-TO BE ENTERED AT DEPARTURE: 02/01/21 16:01 Medical Decision Making Review potassium 4.9 Remainder of diagnostics do not show acute abnormality, patient no longer has a potassium of 6.7 Return precautions discussed and patient expressed understanding Discharged home in stable condition with stable vitals, ED EKG, please review attending documentation Medical Records Medical records reviewed: Yes I reviewed the patient's medical records. Lab Data Lab results reviewed: Yes I reviewed the patient's lab results. HPI General Mode of arrival: ambulatory. Date/Time Provider Initiated Documentation: 02/01/21 14:46. Information obtained by: patient. HPI Narrative: This chronically ill 70-year-old female with history of hyperkalemia presents for report of hyperkalemia, 6.7 prior to arrival and was sent to the ER. Patient denies any symptoms associated with this electrolyte abnormality. She drinks alcohol every couple of days and denies regular alcohol use. Denies chest pain, shortness of breath, dizziness, weakness, vomiting, or any additional complaints at this time. Related Data Home Medications Medication Instructions Recorded Confirmed acetaminophen [Tylenol] 325 mg PO PRN 06/29/12 01/10/21 aspirin [Aspir-81] 81 mg PO DAILY tab 06/29/12 01/10/21 fexofenadine 180 mg PO BID 07/21/14 01/10/21 albuterol sulfate [ProAir HFA] 2 puff INHALATION Q6H PRN #3 08/15/16 01/10/21 inhaler ammonium lactate 5 % lotion 1 applic TP BID #226 gm 04/21/18 01/10/21 nystatin 100,000 unit/gram topical 1 applic TP TID #15 gm 06/07/18 01/10/21 cream levothyroxine 125 mcg tablet 125 mcg PO DAILY #180 tab-cap 09/06/18 01/10/21 budesonide-formoterol HFA 80 2 puff INHALATION BID #3 inhaler 12/14/18 01/10/21 mcg-4.5 mcg/actuation aerosol inhaler ibuprofen 800 mg tablet 800 mg PO TID #90 tab 12/20/18 01/10/21 insulin glargine 100 unit/mL (3 See Rx Instructions SUBCUT HS #15 04/26/19 01/10/21 mL) subcutaneous pen ml albuterol sulfate 2 inh IH Q6H PRN #1 each 06/24/19 01/10/21 simvastatin 40 mg tablet 40 mg PO DAILY #90 tab 11/29/19 01/10/21 venlafaxine 75 mg capsule,extended 75 mg PO DAILY #90 cap 12/22/19 01/10/21 release 24 hr pen needle, diabetic 31 gauge x #540 ndl 02/16/20 01/10/2108/19 Humalog KwikPen Insulin 100 See Rx Instructions SUBCUT as 02/27/20 01/10/21 unit/mL subcutaneous directed #15 ml NS betamethasone dipropionate 0.05 % 1 applic TOPICAL BID PRN #45 g 04/19/20 01/10/21 topical cream pantoprazole 20 mg tablet,delayed 20 mg PO DAILY #90 tab 06/20/20 01/10/21 release blood-glucose meter,continuous #1 ea 09/07/20 01/10/21 [employer] Ultra Test #540 strip NS 11/08/20 01/10/21 lisinopril 10 mg tablet 10 mg PO DAILY #90 tab 11/08/20 01/10/21 insulin glargine 100 unit/mL (3 1 unit SUBCUT QPM ml 12/05/20 01/10/21 mL) subcutaneous pen insulin lispro 100 unit/mL 1 unit SUBCUT TID ml 12/05/20 01/10/21 subcutaneous pen diclofenac sodium 1 % topical gel 2 g TOPICAL QID PRN 12/12/20 01/10/21 hydroxychloroquine 200 mg tablet 200 mg PO BID tab 12/12/20 01/10/21 benzonatate 100 mg capsule 100 mg PO TID PRN #14 cap 12/20/20 01/10/21 doxycycline hyclate 100 mg capsule 100 mg PO BID #14 cap 12/20/20 01/10/21 ipratropium 0.5 mg-albuterol 3 mg 3 ml INHALATION QID PRN #180 ml 12/20/20 01/10/21 (2.5 mg base)/3 mL nebulization soln prednisone See Rx Instructions .ROUTE 12/27/20 01/10/21 .COMPLEX #18 tab sodium polystyrene sulfonate See Rx Instructions PO DAILY 01/10/21 #453.6 g Previous Rx's Medication Instructions Recorded albuterol sulfate [ProAir HFA] 2 puff INHALATION Q6H PRN #3 08/15/16 inhaler ammonium lactate 5 % lotion 1 applic TP BID #226 gm 04/21/18 nystatin 100,000 unit/gram topical 1 applic TP TID #15 gm 06/07/18 cream ibuprofen 800 mg tablet 800 mg PO TID #90 tab 12/20/18 insulin glargine 100 unit/mL (3 See Rx Instructions SUBCUT HS #15 04/26/19 mL) subcutaneous pen ml albuterol sulfate 2 inh IH Q6H PRN #1 each 06/24/19 simvastatin 40 mg tablet 40 mg PO DAILY #90 tab 11/29/19 venlafaxine 75 mg capsule,extended 75 mg PO DAILY #90 cap 12/22/19 release 24 hr pen needle, diabetic 31 gauge x #540 ndl 02/16/2008/19 Humalog KwikPen Insulin 100 See Rx Instructions SUBCUT as 02/27/20 unit/mL subcutaneous directed #15 ml NS betamethasone dipropionate 0.05 % 1 applic TOPICAL BID PRN #45 g 04/19/20 topical cream pantoprazole 20 mg tablet,delayed 20 mg PO DAILY #90 tab 06/20/20 release OneTouch Ultra Test #540 strip NS 11/08/20 lisinopril 10 mg tablet 10 mg PO DAILY #90 tab 11/08/20 benzonatate 100 mg capsule 100 mg PO TID PRN #14 cap 12/20/20 doxycycline hyclate 100 mg capsule 100 mg PO BID #14 cap 12/20/20 ipratropium 0.5 mg-albuterol 3 mg 3 ml INHALATION QID PRN #180 ml 12/20/20 (2.5 mg base)/3 mL nebulization soln prednisone See Rx Instructions .ROUTE 12/27/20 .COMPLEX #18 tab sodium polystyrene sulfonate See Rx Instructions PO DAILY 01/10/21 #453.6 g Allergies Allergy/AdvReac Type Severity Reaction Status Date / Time hydroxychloroquine Allergy Severe hives-01/23 Verified 02/01/21 14:41 17 Penicillins Allergy Intermediate Hives Verified 02/01/21 14:41 gabapentin [From Neurontin] AdvReac Severe Pt. states Verified 02/01/21 14:41 medication messed up her head. General Stated Complaint: [employer]Medical BRIANNA: 3 Review of Systems All systems reviewed & are unremarkable except as noted in HPI and below [facility] Medical History Abnormal blood chemistry (08/05/12) Abnormal blood chemistry Abnormal mammogram of right breast (12/11/15) Actinic keratosis (01/22/17) Alcohol abuse Anxiety and depression Atherosclerosis of aorta (04/14/13) Seen on L-spine x-ray 2012 No aneurysm Larsen esophagus Larsen esophagus 05/11/20 [facility] - Upper GI Endoscopy Repeat EGD 3 yrs. Larsen's esophagus determined by biopsy (04/25/17) Carpal tunnel syndrome (08/05/12) Carpal tunnel syndrome of left wrist (03/26/16) Cervicalgia (08/05/12) myofascial syndrome; has limited ROM (flex and ext) Cervicalgia (08/05/12) Chronic idiopathic urticaria (09/13/14) 07/2014. Admitted to [facility] for IV steroids and antihistamines. Seeing day habilitation supervisor. COPD (chronic obstructive pulmonary disease) Depression Diabetes mellitus (06/19/15) CAIN (dyspnea on exertion) Fall Gastroparesis Gouty arthritis of left great toe Hyperlipidemia (01/05/13) Statin Hypothyroidism Hypothyroidism Postablative Leiomyoma (06/29/15) Lung fungal infection 04/1999 R lung wedge resection Lung nodule, solitary Lupus Diagnosed 2018. 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 stopped ERT 2017. Rx with venlafaxine with satisfactory results. Muscle strain Nonproliferative diabetic retinopathy (08/05/12) Mild as noted by [employer]. Peripheral vertigo (08/05/12) Right lower lobe pneumonia Right rotator cuff tendinitis MRI with probable partial tear of supraspinatus Shingles 2018. 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 Mullins Ligation of fallopian tube Partial thyroidectomy R knee surgery at child; Vonda R lung biopsy/granuloma Tonsillectomy Tooth extraction (~2014) 14 Teeth Extracted, dentures October 2014 Vaginal hysterectomy (~2002) with unilateral R oophorectomy. Family History Mother Mental disorder Anxiety on Lorazepam Aneurysm Sister Osteoarthritis Severe; thumb rebuilt and elbow Maternal Grandfather , Colon cancer Personal history of malignant neoplasm Social History Smoking/Tobacco Use Status: Current every day Tobacco Type: cigarettes Smoking packs per day: 0.5 Smoking cigarettes per day: 10.0 Quit status: not considering quitting Counseling given: provider counseling Smoking risk assessment performed?: Yes Alcohol Intake: current Alcohol Intake frequency: a few times a week Alcohol type: beer Drug use: Never Substance use type: does not use Adopted: No Foster care: No Household members: spouse and other Details: H-Ed. 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 Current gender identity: other What type of physical activity do you participate in: walking Duration: 30-45 minutes/day Frequency: 5-6 times per week Do you feel safe at home: Yes Do you feel safe in your relationship?: Yes History History 4 Para Hx # Term Pregnancies 3 Multiple births Hx # Pregnancies Ectopic pregnancies AB induced Hx Number of Living Children AB spontaneous Exam Const General: cooperative and comfortable Eyes Pupils: PERRL Chest Chest: normal inspection of the chest Resp Effort & Inspection: normal respiratory effort Cardio Rate: regular rate Skin General skin exam: no rashes or lesions noted Neuro General: patient alert and patient oriented x3 Course Vital Signs Vital signs: Vital Signs Temperature 37.1 C 02/01/21 14:35 Pulse 87 02/01/21 14:35 Blood Pressure 142/75 H 02/01/21 14:35 Pulse Oximetry 96 02/01/21 14:35 Temperature 37.1 C 02/01/21 14:35 Temperature Source Temporal Artery Scan 02/01/21 14:35 Pulse 87 02/01/21 14:35 Respiratory Effort Non-Labored 02/01/21 14:39 Blood Pressure 142/75 H 02/01/21 14:35 Pulse Oximetry 96 02/01/21 14:35 Oxygen Delivery Method Room Air 02/01/21 14:35 Oxygen Flow Rate 0 02/01/21 14:35 Pain Level 0 02/01/21 14:35 Lab/Test Results Lab/Test Results: Laboratory Tests Range/Units 02/01/21 02/01/21 15:10 15:10 WBC (4.4-10.8) 10^3/uL 6.99 RBC (3.93-5.22) 10^6/uL 3.87 L Hgb (11.2-15.7) g/dL 12.3 Hct (36.0-46.0) % 36.3 MCV (80-95) fL 93.8 MCH (27.0-33.0) pg 31.8 MCHC (32.0-36.0) % 33.9 RDW (11.7-14.6) % 12.2 Plt Count (130-400) 10^3/uL 285 MPV (8.0-11.0) fL 9.4 Immature Gran % 0.4 Neutrophils % 62.7 Lymphocytes % 23.7 Monocytes % 11.7 Eosinophils % 1.1 Basophils % 0.4 Nucleated RBC % % 0 Absolute Neutrophils (1.2-6.7) 10^3/uL 4.37 Absolute Lymphocytes (1.2-3.4) 10^3/uL 1.66 Absolute Monocytes (0.1-0.8) 10^3/uL 0.82 H Absolute Eosinophils (0.0-0.7) 10^3/uL 0.08 Absolute Basophils (0.0-0.2) 10^3/uL 0.03 Sodium (136-145) mmol/L 130 L Potassium (3.5-5.1) mmol/L 4.9 D Chloride (98-107) mmol/L 97 L Carbon Dioxide (21.0-32.0) mmol/L 25.5 Anion Gap (3-11) mmol/L 7.5 BUN (7-18) mg/dL 11 Creatinine (0.55-1.02) mg/dL 0.9 Estimated GFR/1.73 m2 (mL/min/1.73m2) >= 60.00 Glucose (74-106) mg/dL 244 H Calcium (8.5-10.1) mg/dL 8.6 Total Bilirubin (0.2-1.0) mg/dL 0.2 AST (15-37) U/L 38 H ALT (14-59) U/L 32 Alkaline Phosphatase (46-116) U/L 181 H Total Protein (6.4-8.2) g/dL 6.8 Albumin (3.4-5.0) g/dL 3.6 PAWSS Have you Been Recently Intoxicated or Drunk Within the Last 30 days?: No Have you Ever Experienced Previous Episodes of Alcohol Withdrawal?: No Have you ever Experienced Withdrawal Seizures?: No Have you ever Experienced Delirium Tremens(DT)s?: No Have you ever undergone Alcohol Rehabilitation Treatment (i.e, inpt ot outpatient treatment programs)?: No Have you ever Experienced Blackouts?: No Have you ever Combined Alcohol with other Downers within the last 90 days?: No Have you ever Combined Alcohol with any other Substance of Abuse during the last 90 days?: No Positive Blood Alcohol level on Presentation? [PCS.BAL]: No Evidence of Increased Autonomic Activity (i.e. HR>120, tremor, sweating, agitation, nausea)?: No Result: 0
[2021-02-01 16:00] VITALS: BP 143/67; PULSE 68; RESP 16; O2SAT 97
== END 2021-02-01 16:01 | disposition home or self-care (01) ==
PROVIDERS: Emergency Provider Physician Assistant; PCP Nurse Practitioner
DX: E87.5 Hyperkalemia (principal)
CPT/HCPCS: 36415; 80048; 80053; 93005; 99283; 85025; 93010

== ENCOUNTER 2021-02-11 03:57 | Outpatient (CLI) | payer MEDICARE, OTHER, SELFPAY ==
[2021-02-11 13:43] LABS: Anion Gap 7.4 mmol/L (3-11); BUN 13 mg/dL (7-18); CO2 28.6 mmol/L (21.0-32.0); Calcium 9.6 mg/dL (8.5-10.1); Chloride 99 mmol/L (98-107); Estimated GFR 56.95 (mL/min/1.73m2); Glucose 304 mg/dL (74-106); Potassium 5.9 mmol/L (3.5-5.1); Sodium 135 mmol/L (136-145)
== END 2021-02-11 03:58 | disposition home or self-care (01) ==
LOC: LBO 03:58
PROVIDERS: PCP Nurse Practitioner; Visit Provider Nurse Practitioner
DX: E87.8 Other disorders of electrolyte and fluid balance, not elsewhere classified (principal)
CPT/HCPCS: 36415; 80048

== ENCOUNTER 2021-02-19 08:42 | Outpatient (CLI) | payer MEDICARE, OTHER, SELFPAY ==
[2021-02-19 13:02] LABS: Potassium 5.2 mmol/L (3.5-5.1)
== END 2021-02-19 08:43 | disposition home or self-care (01) ==
LOC: LBO 08:42
PROVIDERS: PCP Nurse Practitioner; Visit Provider Nurse Practitioner
DX: E87.5 Hyperkalemia (principal)
CPT/HCPCS: 36415; 84132

== ENCOUNTER 2021-03-12 02:53 | Outpatient (CLI) | payer OTHER, SELFPAY ==
[2021-03-12 13:08] LABS: Anion Gap 7.7 mmol/L (3-11); BUN 12 mg/dL (7-18); CO2 26.3 mmol/L (21.0-32.0); CREATININE 0.8 mg/dL (0.55-1.02); Calcium 9.4 mg/dL (8.5-10.1); Chloride 100 mmol/L (98-107); Glucose 156 mg/dL (74-106); Sodium 134 mmol/L (136-145)
[2021-03-15 16:58] LABS: Renin Activity, Plasma 0.8 ng/mL/h
== END 2021-03-12 02:54 | disposition home or self-care (01) ==
LOC: LBO 02:53
PROVIDERS: PCP Nurse Practitioner; Visit Provider Nurse Practitioner Family
DX: E87.5 Hyperkalemia (principal)
CPT/HCPCS: 36415; 80048; 82088; 84244

== ENCOUNTER 2021-03-25 03:20 | Outpatient (CLI) | payer OTHER, SELFPAY ==
[2021-03-25 15:33] LABS: Anion Gap 6.1 mmol/L (3-11); BUN 15 mg/dL (7-18); CO2 29.9 mmol/L (21.0-32.0); CREATININE 0.9 mg/dL (0.55-1.02); Calcium 8.9 mg/dL (8.5-10.1); Chloride 99 mmol/L (98-107); Glucose 233 mg/dL (74-106); Potassium 4.4 mmol/L (3.5-5.1); Sodium 135 mmol/L (136-145)
== END 2021-03-25 03:21 | disposition home or self-care (01) ==
LOC: LBO 03:20
PROVIDERS: PCP Nurse Practitioner; Visit Provider Nurse Practitioner
DX: E87.5 Hyperkalemia (principal)
CPT/HCPCS: 36415; 80048

== ENCOUNTER 2021-04-08 02:49 | Outpatient (CLI) | payer OTHER, SELFPAY ==
[2021-04-08 12:42] LABS: Anion Gap 10.6 mmol/L (3-11); BUN 13 mg/dL (7-18); CO2 26.4 mmol/L (21.0-32.0); CREATININE 0.8 mg/dL (0.55-1.02); Calcium 9.6 mg/dL (8.5-10.1); Chloride 98 mmol/L (98-107); Glucose 232 mg/dL (74-106); Potassium 5.2 mmol/L (3.5-5.1); Sodium 135 mmol/L (136-145)
== END 2021-04-08 02:50 | disposition home or self-care (01) ==
LOC: LBO 02:49
PROVIDERS: PCP Nurse Practitioner; Visit Provider Nurse Practitioner
DX: E87.8 Other disorders of electrolyte and fluid balance, not elsewhere classified (principal)
CPT/HCPCS: 36415; 80048

== ENCOUNTER 2021-05-03 04:24 | Outpatient (CLI) | payer OTHER, SELFPAY ==
[2021-05-03 11:37] LABS: Anion Gap 9.2 mmol/L (3-11); BUN 12 mg/dL (7-18); CO2 28.8 mmol/L (21.0-32.0); Calcium 9.6 mg/dL (8.5-10.1); Chloride 88 mmol/L (98-107); Estimated GFR 56.75 (mL/min/1.73m2); Glucose 239 mg/dL (74-106); Potassium 5.8 mmol/L (3.5-5.1); Sodium 126 mmol/L (136-145)
== END 2021-05-03 04:25 | disposition home or self-care (01) ==
LOC: LBO 04:24
PROVIDERS: PCP Nurse Practitioner; Visit Provider Nurse Practitioner
DX: E87.5 Hyperkalemia (principal)
CPT/HCPCS: 36415; 80048

== ENCOUNTER 2021-05-21 02:27 | Outpatient (CLI) | payer OTHER, SELFPAY ==
[2021-05-21 12:50] LABS: Anion Gap 11.1 mmol/L (3-11); BUN 12 mg/dL (7-18); CO2 25.9 mmol/L (21.0-32.0); CREATININE 1.1 mg/dL (0.55-1.02); Calcium 9.8 mg/dL (8.5-10.1); Chloride 98 mmol/L (98-107); Estimated GFR 50.84 (mL/min/1.73m2); Glucose 202 mg/dL (74-106); Potassium 5.5 mmol/L (3.5-5.1); Sodium 135 mmol/L (136-145)
== END 2021-05-21 02:28 | disposition home or self-care (01) ==
LOC: LBO 02:27
PROVIDERS: PCP Nurse Practitioner; Visit Provider Nurse Practitioner
DX: I10 Essential (primary) hypertension (principal); E87.5 Hyperkalemia
CPT/HCPCS: 36415; 80048

== ENCOUNTER 2021-06-21 01:36 | Outpatient (CLI) | payer OTHER, SELFPAY ==
[2021-06-21 08:56] LABS: Anion Gap 8.3 mmol/L (3-11); BUN 13 mg/dL (7-18); CO2 28.7 mmol/L (21.0-32.0); CREATININE 0.9 mg/dL (0.55-1.02); Calcium 9.5 mg/dL (8.5-10.1); Chloride 97 mmol/L (98-107); Glucose 177 mg/dL (74-106); Potassium 4.7 mmol/L (3.5-5.1); Sodium 134 mmol/L (136-145)
== END 2021-06-21 01:37 | disposition home or self-care (01) ==
LOC: LBO 01:37
PROVIDERS: PCP Nurse Practitioner; Visit Provider Nurse Practitioner
DX: E87.5 Hyperkalemia (principal)
CPT/HCPCS: 36415; 80048

== ENCOUNTER 2021-07-25 10:33 | Outpatient (CLI) | payer OTHER, SELFPAY ==
--- NOTE | 2021-07-25 10:00 | DI.RAD_ITS ---
Exam(s) XR WRIST RT COMPL NAVICULAR EXAM: XR WRIST RT COMPL NAVICULAR CLINICAL HISTORY: right wrist pain. TECHNIQUE: 2D digital imaging was performed. COMPARISON: No exams were available for comparison FINDINGS: Four views There is no evidence of fracture or dislocation. No significant ulnar variance. Scaphoid appears un remarkable and scapholunate distance is normal. Bone density normal. No osseous lesions. IMPRESSION: No significant radiographic findings. DATA REPOSITORY: RADIATION DOSE DELIVERED:
== END 2021-07-25 10:34 | disposition home or self-care (01) ==
LOC: DIORS 10:33
PROVIDERS: PCP Nurse Practitioner; Referring Provider Nurse Practitioner; Visit Provider Physician Assistant
DX: M25.531 Pain in right wrist (principal)
CPT/HCPCS: 73110

== ENCOUNTER 2021-08-07 11:19 | Day surgery (SDC) | payer OTHER, SELFPAY ==
[2021-08-07 11:38] VITALS: BP 145/72; PULSE 74; RESP 18; TEMP 36.2; O2SAT 97
--- NOTE | 2021-08-07 11:59 | PDOC.DSDIS_ITS ---
Discharge Plan Disposition Patient Disposition: HOME Condition: Good Discharge Details Reason For Visit: Right middle finger trigger finger Attending Provider: Swapnil Brooks Primary Care Provider: Imelda Beckman Home Meds and New Rx's Prescriptions: Continued nystatin 100,000 unit/gram cream 1 applic TP TID Qty: 15 1RF Lac-Hydrin Five 5 % lotion 1 applic TP BID Qty: 226 0RF Rx Instructions: Apply to cracked toes BID and PRN betamethasone dipropionate 0.05 % cream 1 applic topical BID PRN (Reason: eczma bilateral foreams) Qty: 45 1RF atorvastatin 20 mg tablet 20 mg PO DAILY Qty: 90 3RF amlodipine 10 mg tablet 10 mg PO DAILY Qty: 90 3RF Label Comments: pt. doesnt take anymore hydrochlorothiazide 25 mg tablet 25 mg PO DAILY Qty: 90 3RF Lantus Solostar U-100 Insulin 100 unit/mL (3 mL) insulin pen See Rx Instructions subcut HS Qty: 15 12RF Dose Instruction: subcut HS; 14 U or as directed Type 1 Diabetes Rx Instructions: 12/14/18 pt states takes 14 units at HS RH (DME) OneTouch Ultra Test Strip 1 ea Miscellaneous 6 X A DAY Qty: 540 3RF Rx Instructions: DX: 250.91/T1DM Test QID and PRN ipratropium-albuterol 0.5 mg-3 mg(2.5 mg base)/3 mL solution for nebulization 3 ml inhalation QID PRN (Reason: wheezing) Qty: 180 0RF acetaminophen [Tylenol] 325 MG tablet 325 mg PO PRN 0RF aspirin [Aspir-81] 81 MG tablet,delayed release (DR/EC) 81 mg PO DAILY 0RF fexofenadine 180 MG tablet 180 mg PO BID 0RF Rx Instructions: Dr. Craven, Allergy levothyroxine 125 mcg tablet 125 mcg PO DAILY Qty: 180 3RF Label Comments: pt uses brand name only. Rx Instructions: takes 125 mcg daily budesonide-formoterol [Symbicort] 80-4.5 mcg/actuation HFA aerosol inhaler 2 puff Inhalation BID Qty: 3 3RF Label Comments: Takes only when needed ibuprofen 800 mg tablet 800 mg PO TID Qty: 90 3RF insulin lispro [Humalog KwikPen Insulin] 100 unit/mL insulin pen See Rx Instructions subcut as directed Qty: 15 0RF Dose Instruction: 2-16u for carb coverage/sliding scale. Dx:250.00 subcut as directed; 2-16u as directed for carb coverage/sliding scale. 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 [employer] [facility] See Rx Instructions .ROUTE .MEDSUPPLY Qty: 1 0RF Rx Instructions: Per [facility] note dated 08/29/20 c[facility] Basaglar KwikPen U-100 Insulin 100 unit/mL (3 mL) insulin pen 1 unit subcut QPM 0RF Rx Instructions: 11/19/20 PER [facility] [place] INCREASE FROM THE 14 UNITS TO 15 UNITS TO GET FASTING BLOOD SUGARS IN THE AM BETWEEN 90-150 insulin lispro [Humalog KwikPen Insulin] 100 unit/mL insulin pen 1 unit subcut TID 0RF Label Comments: 14 units Rx Instructions: 11/19/20 ADD 1 UNIT TO HUMALOG DOSE TO EACH OF MEAL TIME HUMALOG DOSES PER [facility] [place] diclofenac sodium [Voltaren Arthritis Pain] 1 % gel 2 g topical QID PRN0RF Rx Instructions: 12/12/20-apply to hand,shoulders,etc-LH hydroxychloroquine [Plaquenil] 200 mg tablet 200 mg PO BID Qty: 200 3RF Rx Instructions: BRAND NAME ONLY DUE TO SIDE EFFECTS ON GENERIC venlafaxine 75 mg capsule,extended release 24hr 75 mg PO DAILY Qty: 90 4RF (DME) pen needle, diabetic [BD Ultra-Fine Mini Pen Needle] 31 gauge x 3/16 needle See Rx Instructions .ROUTE .COMPLEX Qty: 540 3RF Dose Instruction: USE DIRECTED TO ADMINISTER INSULIN Rx Instructions: USE DIRECTED TO ADMINISTER INSULIN albuterol sulfate [ProAir HFA] 8.5 GM HFA aerosol inhaler 2 puff Inhalation Q6H PRN Qty: 3 3RF Rx Instructions: dx: reactive airway DISPENSE WITH SPACER albuterol sulfate 90 mcg/actuation aerosol powdr breath activated 2 inh IH Q6H PRN (Reason: shortness of breath or wheezing) Qty: 1 0RF Discharge Instructions Stand Alone Forms: Cecilia Pruett Finger Release Referrals: Swapnil Brooks MD [ [facility] STAFF PHYSICIAN] - Activity:: Elevate Remove Dressings/Wound Care:: 48 hours Shower/Bathe:: 48 hours Diet:: As Tolerated Discharge Orders Discharge Orders: Discharge Order (Routine); Ordered 08/07/21 Ordered By: Sharron Gao
[2021-08-07] MEDS: Lidocaine 1% Multi-Dose W/EPI 1/100,000 50 ML VIAL (12:12)
[2021-08-07] MEDS: Sodium Bicarbonate 50 MEQ/50 ML VIAL (12:12)
[2021-08-07 12:24] VITALS: BP 136/73; PULSE 69; RESP 18; TEMP 36; O2SAT 99
--- NOTE | 2021-08-07 13:56 | W.PM.OP ---
Date of service: 08/07/21 Time of Service: 12:10 Operative Note Operative Note DATE OF PROCEDURE: 08/07/21 PRE-OP DIAGNOSIS: Right Middle Finger Trigger Finger POST-OP DIAGNOSIS: same PROCEDURE: Trigger Finger Release - Right Middle Finger SURGEON: Swapnil Brooks Refer to Anesthesia Record ESTIMATED BLOOD LOSS: 0 PATHOLOGY: none sent COMPLICATIONS: None Patient was transported to: same day Patient's condition: stable Indications: I have seen Jill in clinic for symptoms of a trigger finger. The catching, clicking, locking, and pain limited function. The diagnosis of trigger finger was evident. The symptoms had not responded to conservative measures. I discussed trigger finger release with the patient. I reviewed the risks of the procedure to include, but not limited to, bleeding, infection, pain, stiffness, incomplete release, damage to nerves or vessels, continued catching, recurrence. Despite these risks, the patient elected to proceed. Findings: There was a tightened A1 rhea which was released. The flexor tendons were inspected and the patient was able to move the finger without any catching, clicking, or locking. Procedure Description: Jill was greeted in the preoperative holding area where the correct side was identified and marked. The consent was reviewed with the patient and signed. All questions were answered. She was taken back to the operating room. The patient was placed into the supine position on the operating room table with the right arm on an arm board. All bony prominences were well padded. No prophylactic antibiotics were administered since this was a clean, elective hand surgical case. The right arm was then prepped with Chloraprep and draped in a standard fashion with stockinette and extremity drape. A timeout to confirm correct identity, side and site, procedure, allergies, anesthesia, and medical concerns was performed. The surgical site was marked as a longitudinal incision directly over the A1 rhea of the involved digit. This was confirmed with palpation during finger flexion. This area, overlying the metacarpal head, was then anesthetized with 1% Lidocaine. The patient tolerated this well and once the anesthetic had setup, the procedure began. A longitudinal incision was made through skin only, approximately 1cm. The deep tissues were dissected bluntly. Once the A1 rhea and flexor tendons were identified the soft tissue including neurovascular structures were retracted medially and laterally. There were no crossing structures over the A1 rhea. The proximal edge of the rhea was identified and the rhea was incised with tenotomy scissors. There was a release of the tendons once this was fully released. The tendons were then removed from the wound and inspected. Excess synovium was resected. The tendons were then returned and the patient was asked to move the finger into deep flexion and back to extension. There was no recreation of the pre-operative symptoms. The hand was then once more inspected for any A0 rhea or area of possible constriction. The wound was then irrigated and the skin was closed with a 4-0 Nylon. This was dressed with gauze and a Conform dressing. The patient tolerated the procedure well and was returned to the Same Day Surgery area in a stable condition suffering no known complication.
== END 2021-08-07 12:36 | disposition home or self-care (01) ==
PROVIDERS: PCP Nurse Practitioner; Visit Provider Student in an Organized Health Care Education/Training Program
PROC: (CPT 26055; principal; 2021-08-07 07:30)
DX: M65.331 Trigger finger, right middle finger (principal)
CPT/HCPCS: 26055

== ENCOUNTER 2021-08-14 02:04 | Outpatient (CLI) | payer OTHER, SELFPAY ==
[2021-08-14 14:16] LABS: Anion Gap 8.8 mmol/L (3-11); BUN 13 mg/dL (7-18); CO2 27.2 mmol/L (21.0-32.0); Calcium 8.8 mg/dL (8.5-10.1); Chloride 101 mmol/L (98-107); Estimated GFR 56.75 (mL/min/1.73m2); Glucose 320 mg/dL (74-106); Magnesium 1.7 mg/dL (1.8-2.4); Potassium 5.2 mmol/L (3.5-5.1); Sodium 137 mmol/L (136-145)
== END 2021-08-14 02:05 | disposition home or self-care (01) ==
LOC: LBO 02:05
PROVIDERS: PCP Nurse Practitioner; Visit Provider Nurse Practitioner
DX: R25.2 Cramp and spasm (principal); R79.89 Other specified abnormal findings of blood chemistry
CPT/HCPCS: 36415; 80048; 83735

== ENCOUNTER 2021-09-17 02:27 | Outpatient (CLI) | payer OTHER, SELFPAY ==
[2021-09-17 12:20] LABS: Anion Gap 5.6 mmol/L (3-11); BUN 9 mg/dL (7-18); CO2 28.4 mmol/L (21.0-32.0); CREATININE 0.8 mg/dL (0.55-1.02); Calcium 9.1 mg/dL (8.5-10.1); Chloride 100 mmol/L (98-107); Glucose 121 mg/dL (74-106); Potassium 5.1 mmol/L (3.5-5.1); Sodium 134 mmol/L (136-145)
== END 2021-09-17 02:28 | disposition home or self-care (01) ==
LOC: LBO 02:27
PROVIDERS: PCP Nurse Practitioner; Visit Provider Nurse Practitioner Family
DX: E87.5 Hyperkalemia (principal)
CPT/HCPCS: 36415; 80048; 84132

== ENCOUNTER 2022-01-31 02:03 | Outpatient (CLI) | payer OTHER, SELFPAY ==
[2022-01-31 08:51] LABS: ALT 50 U/L (14-59); AST 51 U/L (15-37); Albumin 3.7 g/dL (3.4-5.0); Alkaline Phosphatase 273 U/L (46-116); Anion Gap 5.7 mmol/L (3-11); BUN 10 mg/dL (7-18); Bilirubin, Total 0.3 mg/dL (0.2-1.0); CO2 29.3 mmol/L (21.0-32.0); CREATININE 0.8 mg/dL (0.55-1.02); Calcium 9.1 mg/dL (8.5-10.1); Calculated LDL 93 mg/dL (<100); Chloride 98 mmol/L (98-107); Cholesterol 226 mg/dL (<200); Estimated GFR 84.82 (mL/min/1.73m2); Glucose 80 mg/dL (74-106); HDL Cholesterol 121 mg/dL (40-60); Potassium 5.1 mmol/L (3.5-5.1); Sodium 133 mmol/L (136-145); TSH (W/Ref FT4) 4.95 uIU/mL (0.36-3.74); Total Protein 7.1 g/dL (6.4-8.2); Triglyceride 60 mg/dL (<150)
[2022-01-31 09:10] LABS: FREE T4 0.78 ng/dL (0.76-1.46)
[2022-02-03 10:08] LABS: Hepatitis C Ab w Rflx HCV PCR Negative (Negative)
[2022-02-03 10:19] LABS: HIV-1/2 Ag & Ab Screen Negative (Negative)
== END 2022-01-31 02:04 | disposition home or self-care (01) ==
LOC: LBO 02:05
PROVIDERS: PCP Nurse Practitioner; Visit Provider Nurse Practitioner
DX: Z11.59 Encounter for screening for other viral diseases (principal); E11.311 Type 2 diabetes mellitus with unspecified diabetic retinopathy with macular edema; I10 Essential (primary) hypertension; Z79.4 Long term (current) use of insulin; Z11.4 Encounter for screening for human immunodeficiency virus [HIV]
CPT/HCPCS: 36415; 80053; 80061; 86803; 87389; 84439; 84443

== ENCOUNTER 2022-03-03 12:13 | Outpatient (CLI) | payer OTHER, SELFPAY ==
[2022-03-03 11:48] LABS: ALT 46 U/L (14-59); AST 44 U/L (15-37); Albumin 3.9 g/dL (3.4-5.0); Alkaline Phosphatase 253 U/L (46-116); Bilirubin, Direct 0.1 mg/dL (0.0-0.2); Bilirubin, Total 0.4 mg/dL (0.2-1.0); GGT 275 U/L (5-55); Total Protein 7.3 g/dL (6.4-8.2)
== END 2022-03-03 12:14 | disposition home or self-care (01) ==
LOC: LBO 12:13
PROVIDERS: PCP Nurse Practitioner; Visit Provider Psychiatry & Neurology Psychiatry
DX: R74.8 Abnormal levels of other serum enzymes (principal)
CPT/HCPCS: 36415; 80076; 82977

== ENCOUNTER 2022-04-01 02:12 | Outpatient (CLI) | payer OTHER, SELFPAY ==
--- NOTE | 2022-04-01 08:00 | DI.MAMMO_ITS ---
Exam(s) MAMMO SCREENING EXAM: MAMMO SCREENING CLINICAL HISTORY: screening,z12.39. TECHNIQUE: Bilateral full field digital CC and MLO mammographic images were obtained with 3D tomosyn thesis and utilizing computer aided detection (CAD). COMPARISON: Prior mammograms were reviewed. FINDINGS: There has been no significant change in the appearance and distribution of the fibroglandular tissue. Large conglomeration of benign calcifications again noted in the upper outer quadrant of the right br east, unchanged. Unchanged linear calcifications vascular calcifications in the left breast. There are no new spiculated masses nor new malignant appearing microcalcification groups. There is no significant architectural distortion nor skin thickening-retraction. IMPRESSION: No radiographic evidence of malignancy. BI-RADS Category 1 - Negative Breast Density - Category B - Scattered areas of fibroglandular density Breast density Category C or D implies that the patient has dense breast tissue. Dense breast tissue can make it harder to find cancer on a mammogram. Dense breast tissue is also associated with an incr eased risk of breast cancer. This information about the result of the mammogram report was provided to the patient to raise their awareness. Use this report when you speak with the patient about their risks for breast cancer, which includes their family history. At that time, you may recommend additional screening tests (Ultrasoun d or MRI) as these tests may add significant information. A negative radiographic report should not delay biopsy if a dominant or clinically suspicious mass is present. Up to ten percent of cancers are not identified on mammography. A negative report may reinforce clinical impression. Adenosis and dense breasts may obscure an underlying neoplasm. False positive reports average 6 to 10%. Patient will receive a letter notifying them of these results.
== END 2022-04-01 02:32 ==
LOC: DI 02:13
PROVIDERS: PCP Nurse Practitioner; Visit Provider Nurse Practitioner
DX: Z12.31 Encounter for screening mammogram for malignant neoplasm of breast (principal)
CPT/HCPCS: 77063; 77067

== ENCOUNTER 2022-04-02 02:19 | Outpatient (CLI) | payer OTHER, SELFPAY ==
[2022-04-02 11:50] LABS: Alkaline Phosphatase 290 U/L (46-116)
== END 2022-04-02 02:20 | disposition home or self-care (01) ==
LOC: LBO 02:20
PROVIDERS: PCP Nurse Practitioner; Referring Provider Nurse Practitioner; Visit Provider Nurse Practitioner
DX: R74.8 Abnormal levels of other serum enzymes (principal)
CPT/HCPCS: 36415; 84075

== ENCOUNTER 2022-04-30 02:50 | Outpatient (CLI) | payer OTHER, SELFPAY ==
[2022-04-30 14:05] LABS: Abs Immature Grans 0.02 10^3/uL (0.0-0.06); Absolute Basophil Count 0.07 10^3/uL (0.0-0.2); Absolute Eosinophil Count 0.19 10^3/uL (0.0-0.7); Absolute Lymphocyte Count 1.66 10^3/uL (1.2-3.4); Absolute Monocyte Count 1.02 10^3/uL (0.1-0.8); Absolute Neutrophil Count 5.54 10^3/uL (1.2-6.7); Basophils % 0.8; Eosinophils % 2.2; HCT 36.5 % (36.0-46.0); HGB 12.5 g/dL (11.2-15.7); Immature Grans % 0.2; Lymphocytes % 19.5; MCHC 34.2 % (32.0-36.0); MCV 93 fL (80-95); MPV 9.7 fL (8.0-11.0); Neutrophils % 65.3; Platelet Count 298 10^3/uL (130-400); RBC 3.91 10^6/uL (3.93-5.22); RDW 11.7 % (11.7-14.6); RDW-SD 40.1 fL
[2022-04-30 14:41] LABS: Ferritin 43 ng/mL (8-252); TSH 6.82 uIU/mL (0.36-3.74)
[2022-04-30 14:56] LABS: Iron 95 ug/dL (50-170); Total Iron Binding Capacity 402 ug/dL (250-450); Transferrin Sat 24 % (15-50)
[2022-04-30 15:20] LABS: Vitamin D 25 Total 13.1 ng/mL (30-100)
[2022-04-30 22:53] LABS: Ionized Calcium 1.13 mmol/L (1.14-1.35)
[2022-05-01 19:27] LABS: Parathyroid Hormone,Intact 122 pg/mL (19-88)
== END 2022-04-30 02:51 | disposition home or self-care (01) ==
PROVIDERS: PCP Nurse Practitioner; Visit Provider Internal Medicine Gastroenterology
DX: K92.1 Melena (principal); I10 Essential (primary) hypertension; E03.9 Hypothyroidism, unspecified; E11.9 Type 2 diabetes mellitus without complications; E55.9 Vitamin D deficiency, unspecified
CPT/HCPCS: 36415; 82306; 82330; 82728; 83540; 83550; 83970; 84443; 85025

== ENCOUNTER 2022-08-06 02:30 | Outpatient (CLI) | payer OTHER, SELFPAY ==
[2022-08-06 12:01] LABS: BUN 11 mg/dL (7-18); CREATININE 1.3 mg/dL (0.55-1.02); Calcium 9.1 mg/dL (8.5-10.1); Chloride 96 mmol/L (98-107); Estimated GFR 47.08 (mL/min/1.73m2); Glucose 268 mg/dL (74-106); Sodium 132 mmol/L (136-145); TSH (W/Ref FT4) 0.17 uIU/mL (0.36-3.74)
[2022-08-06 12:15] LABS: Vitamin D 25 Total 43.1 ng/mL (30-100)
[2022-08-06 12:27] LABS: FREE T4 1.37 ng/dL (0.76-1.46)
[2022-08-06 17:42] LABS: Ionized Calcium 1.08 mmol/L (1.14-1.35)
[2022-08-06 18:28] LABS: Parathyroid Hormone,Intact 69 pg/mL (19-88)
== END 2022-08-06 02:31 | disposition home or self-care (01) ==
LOC: LBO 02:30
PROVIDERS: PCP Nurse Practitioner; Referring Provider Nurse Practitioner; Visit Provider Nurse Practitioner
DX: E34.9 Endocrine disorder, unspecified (principal); E55.9 Vitamin D deficiency, unspecified; R79.9 Abnormal finding of blood chemistry, unspecified
CPT/HCPCS: 36415; 80048; 82306; 82330; 83970; 84439; 84443

== ENCOUNTER 2023-04-28 14:43 | Outpatient (REF) | payer OTHER, SELFPAY | END 2023-04-28 14:44 | disposition home or self-care (01) | LOC: LBN 14:43 | PROVIDERS: PCP Nurse Practitioner; Visit Provider Physician Assistant | DX: L98.8 Other specified disorders of the skin and subcutaneous tissue (principal); L08.89 Other specified local infections of the skin and subcutaneous tissue | CPT/HCPCS: 87070; 87205 ==

== ENCOUNTER → 2023-05-20 01:36 | Outpatient (CLI) | payer OTHER, SELFPAY ==
--- NOTE | 2023-05-20 08:00 | DI.MAMMO_ITS ---
Exam(s) MAMMO SCREENING EXAM: MAMMO SCREENING CLINICAL HISTORY: screening,Z12.39 TECHNIQUE: Mammograms were interpreted according to the usual protocol including computer analysis w [employer] CAD system, tomosynthesis and C-view imaging. COMPARISON: 2013 through 2021 FINDINGS: The breasts are composed of scattered fibroglandular densities, Breast Density category B. No suspicious masses or suspicious microcalcifications are seen. Large grouping of benign calcificati ons are again noted in the lateral right breast. No skin thickening or abnormal axillary lymph nodes are seen. There has been no significant change from prior exams. IMPRESSION: BI-RADS Category 2 - Negative Mammogram with benign findings. Yearly screening mammography is recom mended. Breast Density - Category B, scattered fibroglandular densities. A negative radiographic report should not delay biopsy if a dominant or clinically suspicious mass is present. Up to ten percent of cancers are not identified on mammography. A negative report may reinforce clinical impression. Adenosis and dense breasts may obscure an underlying neoplasm. False positive reports average 6 to 10%. Patient will receive a letter notifying them of these results.
== END ==
PROVIDERS: PCP Nurse Practitioner; Visit Provider Nurse Practitioner
DX: Z12.31 Encounter for screening mammogram for malignant neoplasm of breast (principal)
CPT/HCPCS: 77063; 77067

== ENCOUNTER → 2023-06-03 01:57 | Outpatient (CLI) | payer OTHER, SELFPAY ==
--- NOTE | 2023-06-03 10:55 | DI.RAD_ITS ---
Exam(s) XR FOOT LT COMPLETE XR FOOT RT COMPLETE EXAM: XR FOOT LT COMPLETE CLINICAL HISTORY: Left foot pain,M79.672. TECHNIQUE: 2D digital imaging was performed. Three views of both feet. COMPARISON: CR XR TOE LT GREAT from 01/27/2019 CR XR FOOT RT COMPLETE from 06/03/2023 FINDINGS: BONES: No acute fracture is present. No bony destructive lesion is seen. Moderate plantar calcaneal spur on the left foot. Tiny right-sided plantar calcaneal spur. Tiny enthesophytes at the Achilles insertion on the calcaneus bilaterally. JOINTS: No dislocation present. No significant degenerative changes. Plantar arch is maintained bi laterally. SOFT TISSUE: Normal. IMPRESSION: Bilateral heel spurs. DATA REPOSITORY: RADIATION DOSE DELIVERED:
== END ==
PROVIDERS: PCP Nurse Practitioner; Visit Provider Podiatrist
DX: M79.671 Pain in right foot (principal); M79.672 Pain in left foot
CPT/HCPCS: 73630

== ENCOUNTER 2023-09-18 13:12 | Outpatient (CLI) | payer OTHER, SELFPAY ==
[2023-09-18 13:29] LABS: TSH 0.23 uIU/Ml (0.36-3.74); Vitamin D 25 Total 37.7 ng/mL (30-100)
== END 2023-09-18 13:13 | disposition home or self-care (01) ==
LOC: LBO 13:13
PROVIDERS: PCP Nurse Practitioner; Visit Provider Registered Nurse Critical Care Medicine
DX: E55.9 Vitamin D deficiency, unspecified (principal); E03.9 Hypothyroidism, unspecified
CPT/HCPCS: 36415; 82306; 84443

== ENCOUNTER 2023-12-09 11:04 | Outpatient (CLI) | payer OTHER, SELFPAY ==
[2023-12-09 12:30] LABS: ALT 45 U/L (14-59); AST 49 U/L (15-37); Albumin 3.7 g/dL (3.4-5.0); Alkaline Phosphatase 204 U/L (46-116); Anion Gap 6.7 mmol/L (3-11); BUN 11 mg/dL (7-18); Bilirubin, Total 0.44 mg/dL (0.2-1.0); CO2 29.3 mmol/L (21.0-32.0); Calcium 9.3 mg/dL (8.5-10.1); Chloride 100 mmol/L (98-107); Estimated GFR 64.09 (mL/min/1.73m2); Glucose 191 mg/dL (74-106); Magnesium 1.7 mg/dL (1.8-2.4); Sodium 136 mmol/L (136-145); Total Protein 7.3 g/dL (6.4-8.2); Vitamin B12 406 pg/mL (193-986)
== END 2023-12-09 11:05 | disposition home or self-care (01) ==
LOC: LBO 11:04
PROVIDERS: PCP Nurse Practitioner; Visit Provider Nurse Practitioner
DX: R25.2 Cramp and spasm (principal)
CPT/HCPCS: 36415; 80053; 82607; 83735

== ENCOUNTER 2023-12-28 03:34 | Outpatient (CLI) | payer OTHER, SELFPAY ==
[2023-12-28 12:17] LABS: Anion Gap 5.9 mmol/L (3-11); BUN 12 mg/dL (7-18); CO2 30.1 mmol/L (21.0-32.0); Calcium 9.5 mg/dL (8.5-10.1); Chloride 94 mmol/L (98-107); Estimated GFR 64.09 (mL/min/1.73m2); Glucose 234 mg/dL (74-106); Potassium 5.4 mmol/L (3.5-5.1); Sodium 130 mmol/L (136-145)
== END 2023-12-28 03:35 | disposition home or self-care (01) ==
LOC: LBO 03:34
PROVIDERS: PCP Nurse Practitioner; Referring Provider Nurse Practitioner; Visit Provider Nurse Practitioner
DX: E87.5 Hyperkalemia (principal)
CPT/HCPCS: 36415; 80048

== ENCOUNTER 2024-04-14 04:49 | Outpatient (CLI) | payer OTHER, SELFPAY ==
[2024-04-14 13:10] LABS: ALT 33 U/L (14-59); AST 37 U/L (15-37); Albumin 3.7 g/dL (3.4-5.0); Alkaline Phosphatase 188 U/L (46-116); Anion Gap 6.6 mmol/L (3-11); BUN 14 mg/dL (7-18); Bilirubin, Total 0.57 mg/dL (0.2-1.0); CO2 28.4 mmol/L (21.0-32.0); CREATININE 1.2 mg/dL (0.55-1.02); Calcium 9.5 mg/dL (8.5-10.1); Chloride 98 mmol/L (98-107); Estimated GFR 51.18 (mL/min/1.73m2); Glucose 253 mg/dL (74-106); Sodium 133 mmol/L (136-145); Total Protein 7.3 g/dL (6.4-8.2)
[2024-04-14 13:16] LABS: Potassium 6.3 mmol/L (3.5-5.1)
== END 2024-04-14 04:50 | disposition home or self-care (01) ==
LOC: LBO 04:50
PROVIDERS: PCP Nurse Practitioner; Visit Provider Nurse Practitioner
DX: M35.1 Other overlap syndromes (principal)
CPT/HCPCS: 36415; 80053

== ENCOUNTER 2024-04-18 11:37 | Emergency (ER) | payer OTHER, SELFPAY ==
[2024-04-18 11:43] VITALS: BP 186/95; PULSE 77; RESP 14; TEMP 36.6; O2SAT 96
[2024-04-18 12:37] LABS: Abs Immature Grans 0.04 10^3/uL (0.0-0.06); Absolute Basophil Count 0.02 10^3/uL (0.0-0.2); Absolute Eosinophil Count 0.04 10^3/uL (0.0-0.7); Absolute Monocyte Count 0.66 10^3/uL (0.1-0.8); Absolute Neutrophil Count 6.86 10^3/uL (1.2-6.7); Basophils % 0.2 %; Eosinophils % 0.5 %; HCT 36.3 % (36.0-46.0); HGB 12.1 g/dL (11.2-15.7); Immature Grans % 0.5 %; Lymphocytes % 13.6 %; MCH 31.4 pg (27.0-33.0); MCHC 33.3 % (32.0-36.0); MCV 94 fL (80-95); MPV 9.2 fL (8.0-11.0); Monocytes % 7.5 %; Neutrophils % 77.7 %; Platelet Count 255 10^3/uL (130-400); RBC 3.85 10^6/uL (3.93-5.22); RDW 13.2 % (11.7-14.6); RDW-SD 45.3 fL; WBC 8.82 10^3/uL (4.4-10.8)
[2024-04-18] MEDS: SUMAtriptan 25 MG TAB PO (12:39)
[2024-04-18 12:59] LABS: ALT 29 U/L (14-59); AST 30 U/L (15-37); Albumin 3.3 g/dL (3.4-5.0); Alkaline Phosphatase 189 U/L (46-116); Anion Gap 8.8 mmol/L (3-11); BUN 12 mg/dL (7-18); Bilirubin, Total 0.47 mg/dL (0.2-1.0); CO2 27.2 mmol/L (21.0-32.0); Calcium 8.9 mg/dL (8.5-10.1); Chloride 97 mmol/L (98-107); Glucose 156 mg/dL (74-106); Magnesium 1.5 mg/dL (1.8-2.4); Potassium 4.5 mmol/L (3.5-5.1); Sodium 133 mmol/L (136-145); TSH (W/Ref FT4) 0.94 uIU/mL (0.36-3.74); Total Protein 6.8 g/dL (6.4-8.2)
--- NOTE | 2024-04-18 13:11 | W.ED.GENAD ---
Discharge Plan Disposition Patient Disposition: Home Condition: Stable Discharge Details Clinical Impression: Headache Primary Care Provider: Imelda Beckman ED Provider: Patrick Kulkarni Home Meds and New Rx's Prescriptions: Continued nystatin 100,000 unit/gram cream 1 applic TP TID Qty: 15 1RF Lac-Hydrin Five 5 % lotion 1 applic TP BID Qty: 226 0RF Rx Instructions: Apply to cracked toes BID and PRN betamethasone dipropionate 0.05 % cream 1 applic topical BID PRN (Reason: eczma bilateral foreams) Qty: 45 1RF (DME) ScirraTouch Ultra Test Strip 1 ea Miscellaneous 6 X A DAY Qty: 540 3RF Rx Instructions: DX: 250.91/T1DM Test QID and PRN ipratropium-albuterol 0.5 mg-3 mg(2.5 mg base)/3 mL solution for nebulization 3 ml inhalation QID PRN (Reason: wheezing) Qty: 180 0RF atorvastatin 20 mg tablet 20 mg PO DAILY Qty: 90 3RF omeprazole 40 mg capsule,delayed release(DR/EC) 40 mg PO DAILY Qty: 90 3RF venlafaxine 75 mg capsule,extended release 24hr 75 mg PO DAILY Qty: 90 4RF albuterol sulfate 90 mcg/actuation HFA aerosol inhaler 2 puff Inhalation Q6H PRN Qty: 3 3RF Rx Instructions: dx: reactive airway DISPENSE WITH SPACER lisinopril 10 mg tablet 10 mg PO DAILY Qty: 90 1RF acetaminophen [Tylenol] 325 MG tablet 325 mg PO PRN aspirin [Aspir-81] 81 MG tablet,delayed release (DR/EC) 81 mg PO DAILY fexofenadine 180 MG tablet 180 mg PO BID Rx Instructions: Dr. Craven, Allergy budesonide-formoterol [Symbicort] 80-4.5 mcg/actuation HFA aerosol inhaler 2 puff Inhalation BID Qty: 3 Patient Comments: Takes only when needed ibuprofen 800 mg tablet 800 mg PO TID Qty: 90 3RF insulin lispro [Humalog KwikPen Insulin] 100 unit/mL insulin pen See Rx Instructions subcut as directed Qty: 15 0RF Dose Instruction: 2-16u for carb coverage/sliding scale. Dx:250.00 subcut as directed; 2-16u as directed for carb coverage/sliding scale. Dx:250.00 Patient Comments: 3 units gievn to self in DSU Rx Instructions: Takes 5-20U tid with meals for carb coverage and 2-5 U between meals as corrections uses 3 boxes, 5 pens every 90 days MDD 70u MDD 70u (DME) Dexcom Super[employer] Department Misc See Rx Instructions .ROUTE .MEDSUPPLY Qty: 1 Rx Instructions: Per [facility] note dated 08/29/20 [facility] [place] glargine [Basaglar KwikPen U-100 Insulin] 100 unit/mL (3 mL) insulin pen 1 unit subcut QPM Rx Instructions: 11/19/20 PER [facility] INCREASE FROM THE 14 UNITS TO 15 UNITS TO GET FASTING BLOOD SUGARS IN THE AM BETWEEN 90-150 insulin lispro [Humalog KwikPen Insulin] 100 unit/mL insulin pen 1 unit subcut TID Patient Comments: 14 units Rx Instructions: 11/19/20 ADD 1 UNIT TO HUMALOG DOSE TO EACH OF MEAL TIME HUMALOG DOSES PER [facility] diclofenac sodium [Voltaren Arthritis Pain] 1 % gel 2 g topical QID PRN Rx Instructions: 12/12/20-apply to hand,shoulders,etc-LH (DME) pen needle, diabetic [BD Ultra-Fine Mini Pen Needle] 31 gauge x 3/16 needle See Rx Instructions .ROUTE .COMPLEX Qty: 540 3RF Dose Instruction: USE DIRECTED TO ADMINISTER INSULIN Rx Instructions: USE DIRECTED TO ADMINISTER INSULIN magnesium oxide 400 mg magnesium capsule 400 mg PO DAILY Qty: 90 3RF levothyroxine [Synthroid] 112 mcg tablet 112 mcg PO DAILY Discharge Instructions Instructions: Headache, Adult ED Additional Instructions: You were seen in the emergency department for your headache. He refused some medicines, we did give you sumatriptan, you can obtain this from your primary care provider as a migraine prevention medication. Your potassium level is normal, he had mildly low magnesium. Please follow-up with your primary care provider, take [id number] supplements containing magnesium as desired, it should normalize with good nutritional intake. Please return for any emergent concerns Referrals: Imelda Beckman NP [Primary Care Provider] - Discharge Data Discharge Date/Time-TO BE ENTERED AT DEPARTURE: 04/18/24 13:41 HPI General Date/Time Provider Initiated Documentation: 04/18/24 11:48. HPI Narrative: 64 year-old female presents to ED today by POV/ambulating with a chief complaint of two weeks of frontal headache with onset intermittently with headaches in the past- reporting that she needs her potassium rechecked, and that she's recovering from a cold. Quality described as frontal headache, no radiation to vision changes, nausea/vomiting, coordination difficulty, worst headache of her life, fever, respiratory distress. Severity is described as moderate. Palliating factors include Tylenol with relief of headache. Provoking factors include nothing specific. Patient not anticoagulated. Related Data Home Medications ?Medication ?Instructions ?Recorded ?Confirmed acetaminophen 325 mg tablet 325 mg PO PRN 06/29/12 04/18/24 (Tylenol) aspirin 81 mg tablet,delayed 81 mg PO DAILY 06/29/12 04/18/24 release (Aspir-) fexofenadine 180 mg tablet 180 mg PO BID 07/21/14 04/18/24 ammonium lactate 5 % lotion 1 applic topical BID #226 grams 04/21/18 04/18/24 (Lac-Hydrin Five) nystatin 100,000 unit/gram topical 1 applic topical TID rash left 06/07/18 04/18/24 cream breast #15 grams budesonide-formoterol HFA 80 2 puff inhalation BID ##3 12/14/18 04/18/24 mcg-4.5 mcg/actuation aerosol inhaler (Symbicort) ibuprofen 800 mg tablet 800 mg PO TID #90 tabs 12/20/18 04/18/24 Humalog KwikPen Insulin 100 See Rx Instructions subcut as 02/27/20 04/18/24 unit/mL subcutaneous (insulin directed #15 mL lispro) betamethasone dipropionate 0.05 % 1 applic topical BID PRN eczma 04/19/20 04/18/24 topical cream bilateral foreams #45 grams blood-glucose meter,continuous #1 ea 09/07/20 04/18/24 (Dexcom Super[employer] Department) OneTouch Ultra Test (blood sugar #540 strips 11/08/20 04/18/24 diagnostic) insulin glargine 100 unit/mL (3 1 unit subcut QPM 12/05/20 04/18/24 mL) subcutaneous pen (Basaglar KwikPen U-100 Insulin) insulin lispro 100 unit/mL 1 unit subcut TID 12/05/20 04/18/24 subcutaneous pen (Humalog KwikPen (U-100) Insulin) diclofenac sodium 1 % topical gel 2 g topical QID PRN 12/12/20 04/18/24 (Voltaren Arthritis Pain) ipratropium 0.5 mg-albuterol 3 mg 3 ml inhalation QID PRN wheezing 12/20/20 04/18/24 (2.5 mg base)/3 mL nebulization #180 mL soln pen needle, diabetic 31 gauge x #540 ea 08/18/22 04/18/2406/19 (BD Ultra-Fine Mini Pen Needle) atorvastatin 20 mg tablet 20 mg PO DAILY #90 tabs 05/27/23 04/18/24 omeprazole 40 mg capsule,delayed 40 mg PO DAILY #90 caps 05/27/23 04/18/24 release venlafaxine 75 mg capsule,extended 75 mg PO DAILY #90 caps 05/27/23 04/18/24 release 24 hr magnesium oxide 400 mg PO DAILY #90 caps 12/22/23 04/18/24 albuterol sulfate 90 mcg/actuation 2 puff inhalation Q6H PRN ##3 01/18/24 04/18/24 aerosol inhaler lisinopril 10 mg tablet 10 mg PO DAILY #90 tabs 01/18/24 04/18/24 levothyroxine 112 mcg tablet 112 mcg PO DAILY 04/18/24 04/18/24 (Synthroid) Previous Rx's ?Medication ?Instructions ?Recorded ammonium lactate 5 % lotion 1 applic topical BID #226 grams 04/21/18 (Lac-Hydrin Five) nystatin 100,000 unit/gram topical 1 applic topical TID rash left 06/07/18 cream breast #15 grams ibuprofen 800 mg tablet 800 mg PO TID #90 tabs 12/20/18 Humalog KwikPen Insulin 100 See Rx Instructions subcut as 02/27/20 unit/mL subcutaneous (insulin directed #15 mL lispro) betamethasone dipropionate 0.05 % 1 applic topical BID PRN eczma 04/19/20 topical cream bilateral foreams #45 grams OneTouch Ultra Test (blood sugar #540 strips 11/08/20 diagnostic) ipratropium 0.5 mg-albuterol 3 mg 3 ml inhalation QID PRN wheezing 12/20/20 (2.5 mg base)/3 mL nebulization #180 mL soln pen needle, diabetic 31 gauge x #540 ea 08/18/2206/19 (BD Ultra-Fine Mini Pen Needle) atorvastatin 20 mg tablet 20 mg PO DAILY #90 tabs 05/27/23 omeprazole 40 mg capsule,delayed 40 mg PO DAILY #90 caps 05/27/23 release venlafaxine 75 mg capsule,extended 75 mg PO DAILY #90 caps 05/27/23 release 24 hr magnesium oxide 400 mg PO DAILY #90 caps 12/22/23 albuterol sulfate 90 mcg/actuation 2 puff inhalation Q6H PRN ##3 01/18/24 aerosol inhaler lisinopril 10 mg tablet 10 mg PO DAILY #90 tabs 01/18/24 Allergies Allergy/AdvReac Type Severity Reaction Status Date / Time hydroxychloroquine Allergy Severe hives-01/23 Verified 04/18/24 11:47 17 hydrochlorothiazide (From Allergy Intermediate Hives Verified 04/18/24 11:47 HydroDiuril) Penicillins Allergy Intermediate Hives Verified 04/18/24 11:47 gabapentin (From Neurontin) AdvReac Severe Pt. states Verified 04/18/24 11:47 medication messed up her head. General Stated Complaint: Headache BRIANNA: 3 Review of Systems All systems reviewed & are unremarkable except as noted in HPI and below Exam Narrative Exam Narrative: GENERAL APPEARANCE: Well-nourished, non-toxic, awake and alert, atraumatic, no acute distress. SKIN: Warm, pink, dry, intact, without rashes/lesions/ulcerations. HEAD: Normocephalic, atraumatic, normal hair distribution for gender/age. EYES: Normal conjunctiva, no exudates on lids/lashes, EOMs intact without nystagmus, vision grossly intact ENT: Nares patent, no circumoral cyanosis, no facial swelling NECK: Supple, trachea midline, painless cervical ROM. LUNGS/CHEST: Lungs CTA bilaterally, non-labored respirations, normal A/P diameter, symmetrical expansion, no chest wall deformity HEART (CV/PV): Regular rate and rhythm without murmur, no peripheral edema, no JVD. ABDOMEN: Soft, non-distended, no guarding. MSK: Normal ROM, no swelling/deformity to bilateral UEs or LEs, moving all extremities without weakness, no cyanosis, spine midline without tenderness, normal curvature. NEURO: Mental Status AAOx4 - alert to person, place, time, events No facial droop, no forehead involvement. Motor: No focal weakness - strength 5/5 in bilateral UEs and LEs, proximal and distal, symmetric. Sensory: sensation intact to light touch globally. Gait normal: patient ambulated without ataxia into ED room. PSYCH: euthymic, cooperative, pleasant, appropriate speech Course Vital Signs Vital signs: Vital Signs Temperature 36.6 C 04/18/24 11:43 Pulse 77 04/18/24 11:43 Respiratory Rate 14 04/18/24 11:43 Blood Pressure 186/95 H 04/18/24 11:43 Pulse Oximetry 96 04/18/24 11:43 Temperature 36.6 C 04/18/24 11:43 Temperature Source Oral 04/18/24 11:43 Pulse 77 04/18/24 11:43 Respiratory Rate 14 04/18/24 11:43 Blood Pressure 186/95 H 04/18/24 11:43 Blood Pressure Position Sitting 04/18/24 11:43 Pulse Oximetry 96 04/18/24 11:43 Oxygen Delivery Method Room Air 04/18/24 11:43 Oxygen Flow Rate 0 04/18/24 11:43 Pain Level 5 04/18/24 11:43 Lab/Test Results Lab/Test Results: Laboratory Tests Range/Units 04/18/24 12:30 WBC (4.4-10.8) 10^3/uL 8.82 RBC (3.93-5.22) 10^6/uL 3.85 L Hgb (11.2-15.7) g/dL 12.1 Hct (36.0-46.0) % 36.3 MCV (80-95) fL 94 MCH (27.0-33.0) pg 31.4 MCHC (32.0-36.0) % 33.3 RDW (11.7-14.6) % 13.2 Plt Count (130-400) 10^3/uL 255 MPV (8.0-11.0) fL 9.2 Immature Gran % % 0.5 Neutrophils % % 77.7 Lymphocytes % % 13.6 Monocytes % % 7.5 Eosinophils % % 0.5 Basophils % % 0.2 Nucleated RBC % (0.0-0.3) % 0.0 Absolute Neutrophils (1.2-6.7) 10^3/uL 6.86 H Absolute Lymphocytes (1.2-3.4) 10^3/uL 1.20 Absolute Monocytes (0.1-0.8) 10^3/uL 0.66 Absolute Eosinophils (0.0-0.7) 10^3/uL 0.04 Absolute Basophils (0.0-0.2) 10^3/uL 0.02 Sodium (136-145) mmol/L 133 L Potassium (3.5-5.1) mmol/L 4.5 Chloride (98-107) mmol/L 97 L Carbon Dioxide (21.0-32.0) mmol/L 27.2 Anion Gap (3-11) mmol/L 8.8 BUN (7-18) mg/dL 12 Creatinine (0.55-1.02) mg/dL 1.0 Est GFR (CKD-EPI 2020) (mL/min/1.73m2) 63.70 Glucose (74-106) mg/dL 156 H Calcium (8.5-10.1) mg/dL 8.9 Magnesium (1.8-2.4) mg/dL 1.5 L Total Bilirubin (0.2-1.0) mg/dL 0.47 AST (15-37) U/L 30 ALT (14-59) U/L 29 Alkaline Phosphatase (46-116) U/L 189 H Total Protein (6.4-8.2) g/dL 6.8 Albumin (3.4-5.0) g/dL 3.3 L TSH (0.36-3.74) uIU/mL 0.94 Medical Decision Making This dictation utilizes [id number] dictation software and may contain unedited grammatical errors. 64 year-old female presents to ED today by POV/ambulating with a chief complaint of two weeks of frontal headache with onset intermittently with headaches in the past- reporting that she needs her potassium rechecked, and that she's recovering from a cold. Quality described as frontal headache, no radiation to vision changes, nausea/vomiting, coordination difficulty, worst headache of her life, fever, respiratory distress. Severity is described as moderate. Palliating factors include Tylenol with relief of headache. Provoking factors include nothing specific. Patients' medical history: SLE, CAIN, muscle strain, peripheral vertigo, cervicalgia, diabetes mellitus, secondary Sjogren's syndrome, tension headache, alcohol abuse, COPD. Family and social history: noncontributory. Pertinent exam findings / vital signs include neuro intact, EOMs intact without nystagmus, no coordination difficulty, no facial droop or slurred speech, benign cardiopulmonary exam, nontoxic and afebrile. Differential / pathologies of concern include tension headache, migraine. Diagnostic studies of: -CBC, CMP, TSH. -CBC benign, CMP has no acute abnormality with normal potassium, mildly low magnesium which was counseled on 4 OTC supplements and normal p.o. intake -TSH within normal limits Interventions of: -Patient refused medicines initially but did take Toradol and sumatriptan. ED Course/Assessment/Plan: 64-year-old female presents with request for potassium check as well as a frontal headache ongoing intermittently for 2 weeks with complete relief of Tylenol. Patient likely has tension headache and her potassium is normal, counseled on mildly low magnesium, counseled on following up with her primary care provider for possibility of prescription for sumatriptan for migraine prevention. Counseled the patient on strict return criteria for severe worsening of her headache especially with fever, any neurologic abnormalities or any other emergent concerns. Findings not consistent with thunderclap headache, infection, thyroid abnormality, hyperkalemia. Disposition of Headache. Patient verbalized understanding of the plan and return to ED criteria and engaged in shared decision making. Medical Records Medical records reviewed: Yes I reviewed the patient's medical records. Lab Data Lab results reviewed: Yes I reviewed the patient's lab results. Labs: Laboratory Tests Range/Units 04/18/24 12:30 WBC (4.4-10.8) 10^3/uL 8.82 RBC (3.93-5.22) 10^6/uL 3.85 L Hgb (11.2-15.7) g/dL 12.1 Hct (36.0-46.0) % 36.3 MCV (80-95) fL 94 MCH (27.0-33.0) pg 31.4 MCHC (32.0-36.0) % 33.3 RDW (11.7-14.6) % 13.2 Plt Count (130-400) 10^3/uL 255 MPV (8.0-11.0) fL 9.2 Immature Gran % % 0.5 Neutrophils % % 77.7 Lymphocytes % % 13.6 Monocytes % % 7.5 Eosinophils % % 0.5 Basophils % % 0.2 Nucleated RBC % (0.0-0.3) % 0.0 Absolute Neutrophils (1.2-6.7) 10^3/uL 6.86 H Absolute Lymphocytes (1.2-3.4) 10^3/uL 1.20 Absolute Monocytes (0.1-0.8) 10^3/uL 0.66 Absolute Eosinophils (0.0-0.7) 10^3/uL 0.04 Absolute Basophils (0.0-0.2) 10^3/uL 0.02 Sodium (136-145) mmol/L 133 L Potassium (3.5-5.1) mmol/L 4.5 Chloride (98-107) mmol/L 97 L Carbon Dioxide (21.0-32.0) mmol/L 27.2 Anion Gap (3-11) mmol/L 8.8 BUN (7-18) mg/dL 12 Creatinine (0.55-1.02) mg/dL 1.0 Est GFR (CKD-EPI 2020) (mL/min/1.73m2) 63.70 Glucose (74-106) mg/dL 156 H Calcium (8.5-10.1) mg/dL 8.9 Magnesium (1.8-2.4) mg/dL 1.5 L Total Bilirubin (0.2-1.0) mg/dL 0.47 AST (15-37) U/L 30 ALT (14-59) U/L 29 Alkaline Phosphatase (46-116) U/L 189 H Total Protein (6.4-8.2) g/dL 6.8 Albumin (3.4-5.0) g/dL 3.3 L TSH (0.36-3.74) uIU/mL 0.94 Quality:SDOH Health Related Social Needs: No Data to Display PFSH All Active Problems (Updated 04/18/24 @ 13:16 by BASSAM Joyner) Headache (Acute) Nail dystrophy (Acute) Plantar fasciitis of left foot (Acute) 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 (Acute) 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 (Acute) Neoplasm of unspecified behavior of bone, soft tissue, and skin (Acute) [facility] Derm note 01/22/23 Trigger finger, left ring finger (Acute) Vitamin D deficiency (Acute) Hiatal hernia (Chronic ~04/2022) per upper endoscopy report [facility]-- 2 CM Tubular adenoma of colon (Acute ~03/2022) cecal polyp-fragments of TA ascending polyp-fragments of sessile serrated polyp/adenoma Fatty liver (Acute ~04/2022) 04/08/22 [facility] GI Abnormal liver function tests (Acute ~04/2022) 04/08/22 GI Secondary Sjogren's syndrome (Acute) 03/19/22 Rheum note Osteoarthritis of both knees (Acute) 03/19/22 Rheum note Nuclear sclerotic cataract of both eyes (Acute ~03/2022) 03/10/22 [facility] COVID (Acute ~12/15/21) Chest pressure (Acute ~11/2021) 11/07/21 GI note Menopausal hot flushes (Chronic) Onset 2010. stopped ERT 2017. Rx with venlafaxine with satisfactory results. 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 [id number]/[id number] segment NON-dysplastic Larsen's-repeat 5yrs Cervicalgia (Chronic 08/05/12) myofascial syndrome; has limited ROM (flex and ext) Carpal tunnel syndrome of left wrist (Chronic 03/26/16) Chronic idiopathic urticaria (Acute 09/13/14) 07/2014. Admitted to [facility] for IV steroids and antihistamines. Seeing manager labor relations. Constipation (Acute 06/19/15) Esophagitis (Acute 04/17/17) LA grade A reflux esophagitis Normal stomach. Biopsied Normal examined duodenum. Biopsied Hyperlipidemia (Chronic 01/05/13) Statin Lupus erythematosus (Acute 07/28/17) Treated with Plaquenil. Maculopathy (Acute 03/12/17) secondary to Plaquenil use OU, [facility] Nonproliferative diabetic retinopathy (Chronic 08/05/12) Mild as noted by [facility]. 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) Anxiety and depression (Chronic) Hypertension (Chronic) Hyperkalemia (Acute) Right shoulder pain (Acute) 09/2020 injection w/Kenalog,Lidocaine and Bupivacaine [place] [facility] Depression (Chronic) Rotator cuff tear, right (Acute) Tendinitis of long head of biceps brachii of both shoulders (Acute) Acute exacerbation of chronic obstructive pulmonary disease (Acute) Current smoker (Acute) Low magnesium level (Acute) Electrolyte abnormality (Acute) Right wrist tendinitis (Acute) Medical History Abnormal liver function (~08/2022) Hx of systemic lupus erythematosus (SLE) History of lupus Abnormal blood chemistry CAIN (dyspnea on exertion) Muscle strain Fall Gouty arthritis of left great toe Carpal tunnel syndrome (08/05/12) Abnormal blood chemistry (08/05/12) Peripheral vertigo (08/05/12) Cervicalgia (08/05/12) Abnormal mammogram of right breast (12/11/15) Diabetes mellitus (06/19/15) Leiomyoma (06/29/15) Shingles 2018. Right lower lobe pneumonia Surgical History H/O endoscopy (~11/12/22) Hx of endoscopy (~11/29/21) 05/02/22-[facility] Trigger middle finger of right hand Depo-Medrol injection: 04/26/2021 S/P Release: 08/08/4043 laryngoscopy (08/09/12) Dr. [place] Ligation of fallopian tube Tonsillectomy R knee surgery at child; [place] Partial thyroidectomy Vaginal hysterectomy (~2002) with unilateral R oophorectomy. Tooth extraction (~2014) 14 Teeth Extracted, dentures October 2014 Carpal tunnel release, R, 2010 Biopsy, Soft Tissue (12/10/16) R dorsal arm Dr Adams-[facility] derm Family History Mother Mental disorder Anxiety on Lorazepam Aneurysm Sister Osteoarthritis Severe; thumb rebuilt and elbow Maternal Grandfather , Colon cancer Personal history of malignant neoplasm Social History (Updated 12/02/23 @ 10:15 by Elly Phan LPN) Smoking/Tobacco Use Status: Current every day Tobacco Type: cigarettes Smoking packs per day: 0.5 Smoking cigarettes per day: 10.0 Quit status: not considering quitting Counseling given: provider counseling Smoking risk assessment performed?: Yes Alcohol Intake: current Alcohol Intake frequency: 3 or more drinks per day Alcohol type: beer Counseling given: Yes ( offered to help pt find counseling but she decines) Drug use: Never Substance use type: does not use Details: alcohol: t-7 Adopted: No Foster care: No Household members: spouse and other Details: H-Ed. 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 Current gender identity: other What is your relationship status?: How often do you talk on the phone with friends or family?: three or more times per week Panel score (0-1 are the most socially isolated patients): 2 What type of physical activity do you participate in: walking Duration: 30-45 minutes/day Frequency: 5-6 times per week Seatbelt use: always Working smoke detector in home: Yes Fire extinguisher in home: Yes Carbon monox detector in home: Yes Do you feel safe at home: Yes Do you feel safe in your relationship?: Yes History History 4 Para Hx # Term Pregnancies 3 Multiple births Hx # Pregnancies Ectopic pregnancies AB induced Hx Number of Living Children AB spontaneous PAWSS Have you Been Recently Intoxicated or Drunk Within the Last 30 days?: No Have you Ever Experienced Previous Episodes of Alcohol Withdrawal?: No Have you ever Experienced Withdrawal Seizures?: No Have you ever Experienced Delirium Tremens(DT)s?: No Have you ever undergone Alcohol Rehabilitation Treatment (i.e, inpt ot outpatient treatment programs)?: No Have you ever Experienced Blackouts?: No Have you ever Combined Alcohol with other Downers within the last 90 days?: No Have you ever Combined Alcohol with any other Substance of Abuse during the last 90 days?: No Positive Blood Alcohol level on Presentation? [PCS.BAL]: No Evidence of Increased Autonomic Activity (i.e. HR>120, tremor, sweating, agitation, nausea)?: No Result: 0
[2024-04-18 13:37] VITALS: BP 186/95; PULSE 77; RESP 14; TEMP 36.6; O2SAT 96
== END 2024-04-18 13:41 | disposition home or self-care (01) ==
PROVIDERS: Emergency Provider Physician Assistant; PCP Nurse Practitioner
DX: R51.9 Headache, unspecified (principal); M32.9 Systemic lupus erythematosus, unspecified; E10.3299 Type 1 diabetes mellitus with mild nonproliferative diabetic retinopathy without macular edema, unspecified eye; E78.5 Hyperlipidemia, unspecified; F17.210 Nicotine dependence, cigarettes, uncomplicated; Z79.4 Long term (current) use of insulin; Z79.82 Long term (current) use of aspirin
CPT/HCPCS: 36415; 80053; 99283; 83735; 84443; 85025

== ENCOUNTER 2024-06-15 03:52 | Outpatient (CLI) | payer OTHER, SELFPAY ==
--- NOTE | 2024-06-15 12:07 | DI.MAMMO_ITS ---
Exam(s) MAMMO SCREENING EXAM: MAMMO SCREENING CLINICAL HISTORY: screening,z12.39 TECHNIQUE: Bilateral full field digital CC and MLO mammographic images were obtained with 3D tomosyn thesis and utilizing computer aided detection (CAD). COMPARISON: Available for comparison. FINDINGS: Masses/Architectural Distortion: No suspicious masses or areas of architectural distortion are presen t. Microcalcifications: No suspicious pleomorphic-type are seen. Stable coarse calcifications are seen i n the upper outer quadrant of the right breast. Skin Thickening/Nipple Retraction: None. IMPRESSION: 1. No significant interval change with no specific features of malignancy noted. 2. Unless there is more urgent need, screening mammography is recommended, as per [employer] guidelines. BI-RADS Category 2 - Benign Findings Breast Density - Category B - Scattered areas of fibroglandular density Breast density category C or D implies that the patient has dense breast tissue. Dense breast tissue is very common and is not abnormal but dense breast tissue can make it harder to find cancer on a ma mmogram. Also, dense breast tissue may increase their breast cancer risk. This information about the result of the mammogram report was provided to the patient to raise their awareness. Use this report when you speak with the patient about their risks for breast cancer, which includes their family hist ory. At that time, you may recommend for more screening tests (Ultrasound or MRI) as they might be us eful based on their risk. A negative radiographic report should not delay biopsy if a dominant or clinically suspicious mass is present. Up to ten percent of cancers are not identified on mammography. A negative report may reinforce clinical impression. Adenosis and dense breasts may obscure an underlying neoplasm. False positive reports average 6 to 10%. Patient will receive a letter notifying them of these results.
== END 2024-06-15 04:12 ==
LOC: DI 03:52
PROVIDERS: PCP Nurse Practitioner; Visit Provider Nurse Practitioner
DX: Z12.31 Encounter for screening mammogram for malignant neoplasm of breast (principal); R92.323 Mammographic fibroglandular density, bilateral breasts; D24.1 Benign neoplasm of right breast
CPT/HCPCS: 77063; 77067

== ENCOUNTER 2024-09-13 12:16 | Emergency (ER) | payer OTHER, SELFPAY ==
[2024-09-13 12:18] VITALS: BP 160/78; PULSE 83; RESP 18; TEMP 36.6; O2SAT 96
[2024-09-13 12:23] VITALS: BP 160/78; PULSE 83; RESP 18; TEMP 36.6; O2SAT 96
--- NOTE | 2024-09-13 12:31 | ED.GENADUL_ITS ---
Discharge Plan Disposition Patient Disposition: Home Condition: Stable Discharge Details Clinical Impression: Bulging lumbar disc Primary Care Provider: Imelda Beckman ED Provider: Patrick Kulkarni Home Meds and New Rx's Prescriptions: No Action nystatin 100,000 unit/gram cream 1 applic TP TID Qty: 15 1RF Lac-Hydrin Five 5 % lotion 1 applic TP BID Qty: 226 0RF Rx Instructions: Apply to cracked toes BID and PRN betamethasone dipropionate 0.05 % cream 1 applic topical BID PRN (Reason: eczma bilateral foreams) Qty: 45 1RF (DME) OneTouch Ultra Test Strip 1 ea Miscellaneous 6 X A DAY Qty: 540 3RF Rx Instructions: DX: 250.91/T1DM Test QID and PRN ipratropium-albuterol 0.5 mg-3 mg(2.5 mg base)/3 mL solution for nebulization 3 ml inhalation QID PRN (Reason: wheezing) Qty: 180 0RF omeprazole 40 mg capsule,delayed release(DR/EC) 40 mg PO DAILY Qty: 90 3RF venlafaxine 75 mg capsule,extended release 24hr 75 mg PO DAILY Qty: 90 4RF albuterol sulfate 90 mcg/actuation HFA aerosol inhaler 2 puff Inhalation Q6H PRN Qty: 3 3RF Rx Instructions: dx: reactive airway DISPENSE WITH SPACER lisinopril 10 mg tablet 10 mg PO DAILY Qty: 90 1RF acetaminophen [Tylenol] 325 MG tablet 325 mg PO PRN aspirin [Aspir-81] 81 MG tablet,delayed release (DR/EC) 81 mg PO DAILY fexofenadine 180 MG tablet 180 mg PO BID Rx Instructions: Dr. Craven, Allergy budesonide-formoterol [Symbicort] 80-4.5 mcg/actuation HFA aerosol inhaler 2 puff Inhalation BID Qty: 3 Patient Comments: Takes only when needed ibuprofen 800 mg tablet 800 mg PO TID Qty: 90 3RF insulin lispro [Humalog KwikPen Insulin] 100 unit/mL insulin pen See Rx Instructions subcut as directed Qty: 15 0RF Dose Instruction: 2-16u for carb coverage/sliding scale. Dx:250.00 subcut as directed; 2-16u as directed for carb coverage/sliding scale. Dx:250.00 Patient Comments: 3 units gievn to self in DSU Rx Instructions: Takes 5-20U tid with meals for carb coverage and 2-5 U between meals as corrections uses 3 boxes, 5 pens every 90 days MDD 70u MDD 70u (DME) Dexcom Pig Machine Supervisor Misc See Rx Instructions .ROUTE .MEDSUPPLY Qty: 1 Rx Instructions: Per [facility] note dated 08/29/20 cgc insulin glargine [Basaglar KwikPen U-100 Insulin] 100 unit/mL (3 mL) insulin pen 1 unit subcut QPM Rx Instructions: 11/19/20 PER [facility] INCREASE FROM THE 14 UNITS TO 15 UNITS TO GET FASTING BLOOD SUGARS IN THE AM BETWEEN 90-150 insulin lispro [Humalog KwikPen Insulin] 100 unit/mL insulin pen 1 unit subcut TID Patient Comments: 14 units Rx Instructions: 11/19/20 ADD 1 UNIT TO HUMALOG DOSE TO EACH OF MEAL TIME HUMALOG DOSES PER [facility] diclofenac sodium [Voltaren Arthritis Pain] 1 % gel 2 g topical QID PRN Rx Instructions: 12/12/20-apply to hand,shoulders,etc-LH (DME) pen needle, diabetic [BD Ultra-Fine Mini Pen Needle] 31 gauge x 3/16 needle See Rx Instructions .ROUTE .COMPLEX Qty: 540 3RF Dose Instruction: USE DIRECTED TO ADMINISTER INSULIN Rx Instructions: USE DIRECTED TO ADMINISTER INSULIN magnesium oxide 400 mg magnesium capsule 400 mg PO DAILY Qty: 90 3RF atorvastatin 40 mg tablet 40 mg PO DAILY Rx Instructions: incr 03/11/24 levothyroxine [Synthroid] 112 mcg tablet 112 mcg PO DAILY Discharge Instructions Instructions: Methocarbamol, Low Back Pain ED, Degenerative Disc Disease ED Additional Instructions: You were seen in the emergency department for your low back pain and flank pain, you have multiple levels of some disc bulging at L3, L4, L5. This is the likely source of your pain, there is no kidney stone seen you have no evidence of UTI, you do have some protein but without the presence of microscopic blood this makes kidney stone especially with a negative CT not a likely diagnosis. There are no other abnormalities seen, no signs of infection within the abdomen, the lung bases are normal. You refused lab draws today, I do not suspect you have any infectious problems going on I did provide you a referral to physical therapy as this is the only long-term improvement for low back pain, I have also sent you a nonsedating muscle relaxer prescription called methocarbamol, you have been taking far too much Tylenol and ibuprofen. Please use therapeutic dosing of Tylenol (acetamenophen) & Advil (ibuprofen) in an alternating fashion as follows: Take 1000mg of Tylenol every 6 hours without missing doses- that is 4 times per day. Fci in between the Tylenol dosings, take 400-600mg of Advil also on a 6 hour schedule, that is also 4 times per day. The daily maximum dosing of Tylenol is 4000mg, and the daily maximum dosing of Advil is 2400mg. This is safe to do for weeks. Please note that some common cold medications & prescription pain medications may contain acetamenophen and you need to read OTC drug labels and factor that in to maximum daily dosings. Apply an fjom-xve-velrovk lidocaine patch to the area of pain daily, you can also add some topical [id number] Voltaren gel for some focused topical antiinflammatory action. Please return for any urinary retention, bowel incontinence, developing fever, numbness to genitalia, weakness of legs, intractable nausea or vomiting, black or bloody stool or diarrhea or any other emergent concern like chest pain, shortness of breath. Stand Alone Forms: Physical Therapy Referral Discharge Data Discharge Date/Time-TO BE ENTERED AT DEPARTURE: 09/13/24 14:52 HPI General Date/Time Provider Initiated Documentation: 09/13/24 12:29 . HPI Narrative: 64 year-old female presents to ED today by POV/ambulating with a chief complaint of low back pain, ongoing for at least 7 weeks. Quality described as diffuse low back pain, some radiation group home to axilla, no radiation to fever, history of IVDU, urinary retention, weakness to legs, bowel incontinence, dysuria, s evere abdominal pain, intractable nausea/vomiting. Severity is described as severe. Palliating factors include nothing specific attempted. Provoking factors include nothing specific. Events leading up to the incident/Associated Symptoms: Patient had been seen express care September 05, they recommended CT scan with contrast. Patient not anticoagulated. Related Data Home Medications ?Medication ?Instructions ?Recorded ?Confirmed acetaminophen 325 mg tablet 325 mg PO PRN 06/29/12 09/13/24 (Tylenol) aspirin 81 mg tablet,delayed 81 mg PO DAILY 06/29/12 09/13/24 release (Aspir-) fexofenadine 180 mg tablet 180 mg PO BID 07/21/14 09/13/24 ammonium lactate 5 % lotion 1 applic topical BID #226 grams 04/21/18 09/13/24 (Lac-Hydrin Five) nystatin 100,000 unit/gram topical 1 applic topical TID rash left 06/07/18 09/13/24 cream breast #15 grams budesonide-formoterol HFA 80 2 puff inhalation BID ##3 12/14/18 09/13/24 mcg-4.5 mcg/actuation aerosol inhaler (Symbicort) ibuprofen 800 mg tablet 800 mg PO TID #90 tabs 12/20/18 09/13/24 Humalog KwikPen Insulin 100 See Rx Instructions subcut as 02/27/20 09/13/24 unit/mL subcutaneous (insulin directed #15 mL lispro) betamethasone dipropionate 0.05 % 1 applic topical BID PRN eczma 04/19/20 09/13/24 topical cream bilateral foreams #45 grams blood-glucose,lead ingot molder,cont #1 ea 09/07/20 09/13/24 (Dexcom Pig Machine Supervisor) OneTouch Ultra Test (blood sugar #540 strips 11/08/20 09/13/24 diagnostic) insulin glargine 100 unit/mL (3 1 unit subcut QPM 12/05/20 09/13/24 mL) subcutaneous pen (Basaglar KwikPen U-100 Insulin) insulin lispro 100 unit/mL 1 unit subcut TID 12/05/20 09/13/24 subcutaneous pen (Humalog KwikPen (U-100) Insulin) diclofenac sodium 1 % topical gel 2 g topical QID PRN 12/12/20 09/13/24 (Voltaren Arthritis Pain) ipratropium 0.5 mg-albuterol 3 mg 3 ml inhalation QID PRN wheezing 12/20/20 09/13/24 (2.5 mg base)/3 mL nebulization #180 mL soln pen needle, diabetic 31 gauge x #540 ea 08/18/22 09/13/24/16 (BD Ultra-Fine Mini Pen Needle) magnesium oxide 400 mg PO DAILY #90 caps 12/22/23 09/13/24 albuterol sulfate 90 mcg/actuation 2 puff inhalation Q6H PRN ##3 01/18/24 09/13/24 aerosol inhaler lisinopril 10 mg tablet 10 mg PO DAILY #90 tabs 01/18/24 09/13/24 levothyroxine 112 mcg tablet 112 mcg PO DAILY 04/18/24 09/13/24 (Synthroid) omeprazole 40 mg capsule,delayed 40 mg PO DAILY #90 caps 06/01/24 09/13/24 release venlafaxine 75 mg capsule,extended 75 mg PO DAILY #90 caps 06/01/24 09/13/24 release 24 hr atorvastatin 40 mg tablet 40 mg PO DAILY 06/02/24 09/13/24 Previous Rx's ?Medication ?Instructions ?Recorded ammonium lactate 5 % lotion 1 applic topical BID #226 grams 04/21/18 (Lac-Hydrin Five) nystatin 100,000 unit/gram topical 1 applic topical TID rash left 06/07/18 cream breast #15 grams ibuprofen 800 mg tablet 800 mg PO TID #90 tabs 12/20/18 Humalog KwikPen Insulin 100 See Rx Instructions subcut as 02/27/20 unit/mL subcutaneous (insulin directed #15 mL lispro) betamethasone dipropionate 0.05 % 1 applic topical BID PRN eczma 04/19/20 topical cream bilateral foreams #45 grams OneTouch Ultra Test (blood sugar #540 strips 11/08/20 diagnostic) ipratropium 0.5 mg-albuterol 3 mg 3 ml inhalation QID PRN wheezing 12/20/20 (2.5 mg base)/3 mL nebulization #180 mL soln pen needle, diabetic 31 gauge x #540 ea 08/18/2206/19 (BD Ultra-Fine Mini Pen Needle) magnesium oxide 400 mg PO DAILY #90 caps 12/22/23 albuterol sulfate 90 mcg/actuation 2 puff inhalation Q6H PRN ##3 01/18/24 aerosol inhaler lisinopril 10 mg tablet 10 mg PO DAILY #90 tabs 01/18/24 omeprazole 40 mg capsule,delayed 40 mg PO DAILY #90 caps 06/01/24 release venlafaxine 75 mg capsule,extended 75 mg PO DAILY #90 caps 06/01/24 release 24 hr Allergies Allergy/AdvReac Type Severity Reaction Status Date / Time hydroxychloroquine Allergy Severe hives-01/23 Verified 09/13/24 12:21 17 hydrochlorothiazide (From Allergy Intermediate Hives Verified 09/13/24 12:21 HydroDiuril) Penicillins Allergy Intermediate Hives Verified 09/13/24 12:21 gabapentin (From Neurontin) AdvReac Severe Pt. states Verified 09/13/24 12:21 medication messed up her head. General Stated Complaint: FlankPain BRIANNA: 3 Review of Systems All systems reviewed & are unremarkable except as noted in HPI and below Exam Narrative Exam Narrative: GENERAL APPEARANCE: Well-nourished, non-toxic, awake and alert, atraumatic, no acute distress. SKIN: Warm, pink, dry, intact, without rashes/lesions/ulcerations. HEAD: Normocephalic, atraumatic, normal hair distribution for gender/age. EYES: Normal conjunctiva, no exudates on lids/lashes. ENT: Nares patent, no circumoral cyanosis, no facial swelling NECK: Supple, trachea midline, painless cervical ROM. LUNGS/CHEST: Lungs CTA bilaterally, non-labored respirations, normal A/P diameter, symmetrical expansion, no chest wall deformity HEART (CV/PV): Regular rate and rhythm without murmur, no peripheral edema, no JVD. ABDOMEN: Soft, non-distended, no guarding, right CVA tenderness. MSK: Normal ROM, no swelling/deformity to bilateral UEs or LEs, moving all extremities without weakness, no cyanosis, spine midline with mild tenderness to mid lumbar vertebrae or step-off paraspinal muscle palpable tension, normal curvature. NEURO: Mental Status AAOx4 - alert to person, place, time, events No facial droop, no forehead involvement. Motor: No focal weakness - strength 5/5 in bilateral UEs and LEs, proximal and distal, symmetric. Sensory: sensation intact to light touch globally. Gait normal: patient ambulated without ataxia into ED room. PSYCH: euthymic, cooperative, pleasant, appropriate speech Course Vital Signs Vital signs: Vital Signs Temperature 36.6 C 09/13/24 12:18 Pulse 83 09/13/24 12:18 Respiratory Rate 18 09/13/24 12:18 Blood Pressure 160/78 H 09/13/24 12:18 Pulse Oximetry 96 09/13/24 12:18 Temperature 36.6 C 09/13/24 12:23 Temperature Source Oral 09/13/24 12:23 Pulse 83 09/13/24 12:23 Respiratory Rate 18 09/13/24 12:23 Blood Pressure 160/78 H 09/13/24 12:23 Pulse Oximetry 96 09/13/24 12:23 Oxygen Delivery Method Room Air 09/13/24 12:23 Oxygen Flow Rate 0 09/13/24 12:23 Pain Level 5 09/13/24 12:23 Medical Decision Making This dictation utilizes [id number] dictation software and may contain unedited grammatical errors. 64 year-old female presents to ED today by POV/ambulating with a chief complaint of low back pain, ongoing for at least 7 weeks. Quality described as diffuse low back pain, some radiation group home to axilla, no radiation to fever, history of IVDU, urinary retention, weakness to legs, bowel incontinence, dysuria, severe abdominal pain, intractable nausea/vomiting. Severity is described as severe. Palliating factors include nothing specific attempted. Provoking factors include nothing specific. Events leading up to the incident/Associated Symptoms: Patient had been seen express care September 05, they recommended CT scan with contrast. Patients' medical history: Diabetes, COPD, secondary Sj?gren's syndrome, mixed connective tissue disease, various orthopedic syndromes multiple joint, hypothyroidism. Family and social history: Noncontributory. Pertinent exam findings / vital signs include paraspinal tenderness in the mid lumbar area as well as some midline tenderness without crepitus or step-off, neurovascular intact of bilateral lower extremities, no saddle anesthesia, mild CVA tenderness to right flank to percussion. Differential / pathologies of concern include lumbar back pain, renal colic, unlikely spinal epidural abscess or cauda equina, lumbar back strain, spinal stenosis or arthritis. Diagnostic studies of: - CT renal colic with lumbar recons-CT shows disc bulging at L3-4 and 5. - UA shows no evidence of UTI, no microscopic hematuria -patient refused bloodwork after 2 attempts with failed collection- reasonable with 7 week onset without fevers or other signs of infectious etiology Interventions of: - Lidoderm patch applied here in the ER. Rx for methocarbamol ED Course/Assessment/Plan: 64-year-old female presents with 7 weeks of low back pain seen at urgent care about 8 days ago was recommended to get a CT scan with contrast, I spent significant amount of time with the patient discussing that she likely does not need contrast for location and onset and presentation of her pain, she did agree to basic laboratory workup but refused labs after 2 attempts, urine shows some proteinuria but no microscopic hematuria, CT renal with lumbar recon shows disc bulge at L3-L4 and L4-L5, counseled the patient that she likely needs to see y sical therapy for long-term curative or improved outcomes with this condition due to her baseline health status, I recommend she continue Tylenol and ibuprofen we provided a lidocaine patch here and I sent a prescription for methocarbamol for skeletal muscle relaxation, she had little isreal in ability of physical therapy to improve outcome, counseled her to return for any further urinary obstructive symptoms, cauda equina signs or symptoms, any other emergent concerns. Findings not consistent with neurovascular compromise, renal colic, UTI, ongoing infectious etiology, cauda equina or spinal epidural abscess. Disposition of Bulging Lumbar Disc. Patient verbalized understanding of the plan and return to ED criteria and engaged in shared decision making. Medical Records Medical records reviewed: Yes I reviewed the patient's medical records. Imaging Data Radiologic Study: Attestation: I personally reviewed and interpreted this imaging study as follows: Imaging: CT Scan Radiologist's impression: EXAM: CT RENAL COLIC WO and CT lumbar spine recons CLINICAL HISTORY: L flank pain. TECHNIQUE: Imaging Protocol: Axial computed tomography images with coronal and sagittal reformatted images were created and reviewed. COMPARISON: CT ABD PELVIS WO CONTRAST from 04/10/[address] LUMBAR SPINE RECONS from 09/13/2024 FINDINGS: ABDOMEN: Lung Bases: Normal where visualized. Liver: Normal density. No measurable mass. Gallbladder and biliary tract: The gallbladder is contracted. No stones or biliary ductal dilatation is seen. Pancreas: Normal density, no abnormal calcifications or inflammatory process. Spleen: Normal. Kidneys: Normal size, contour and axis.No radiodense stones or obstructive uropathy. No masses seen. Vascular calcifications are seen. Adrenal glands: No mass is seen. Lymph nodes: Within normal limits. Abdominal Aorta: Abdominal portion non-dilated. There is moderately severe atherosclerotic calcification particularly of the superior mesenteric artery, renal arteries and aorta. PELVIS: Bladder:Urinary bladder is incompletely distended but grossly unremarkable. No bladder stones are seen. Bowel: No obstruction or bowel wall thickening. No evidence of appendicitis. Peritoneal cavity: No ascites, collection or mesenteric inflammatory response. No free air. Reproductive organs: Status post hysterectomy. Bones: Within normal limits. Soft Tissues: Within normal limits. CT reconstructions of the lumbar spine: There are no acute fractures or subluxations in the lumbar spine. Age-appropriate degenerative changes are seen in the lumbar spine. There is no significant central spinal canal or neural foraminal stenosis present. There are mild diffuse disc bulges at L3-4 and L4- L5. No large focal disc herniation is seen. IMPRESSION: 1. No evidence of nephrolithiasis or hydronephrosis. 2. No acute abdominal or pelvic process. 3. Extensive atherosclerosis is present particularly involving the superior mesenteric artery, the renal arteries and abdominal aorta. 4. No acute fracture or subluxation in the lumbar spine. No large disc herniation or significant central spinal canal or neural foraminal stenosis is seen in the lumbar spine. Lab Data Lab results reviewed: Yes I reviewed the patient's lab results. Labs: Laboratory Tests Range/Units 09/13/24 12:49 Urine Color (Yellow) Yellow Urine Clarity (Clear) Clear Urine pH (5-8) 6.0 Ur Specific Hancock (1.005-1.025) 1.020 Urine Protein (Neg-Trace) mg/dL 30 H Urine Ketones (Negative) mg/dL Negative Urine Blood (Negative) Negative Urine Nitrite (Negative) Negative Urine Bilirubin (Negative) Negative Urine Urobilinogen (Up to 0.2) mg/dL 0.2 Ur Leukocyte Esterase (Negative) Negative Urine RBC (0-2) HPF 0-2 Urine WBC (0-5) HPF 0-2 Ur Epithelial Cells (Negative) HPF Moderate Urine Crystals (Negative) HPF Negative Urine Bacteria (Negative) HPF Few Urine Casts (Negative) LPF Negative Urine Mucus (Negative) Trace Ur Culture Indicated? 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 (Acute) Neoplasm of unspecified behavior of bone, soft tissue, and skin (Acute) [facility] Derm note 01/22/23 Trigger finger, left ring finger (Acute) Vitamin D deficiency (Acute) Hiatal hernia (Chronic ~04/2022) per upper endoscopy report [facility]-- 2 CM Tubular adenoma of colon (Acute ~03/2022) cecal polyp-fragments of TA ascending polyp-fragments of sessile serrated polyp/adenoma Fatty liver (Acute ~04/2022) 04/08/22 [facility] GI Abnormal liver function tests (Acute ~04/2022) 04/08/22 GI Secondary Sjogren's syndrome (Acute) 03/19/22 Rheum note Osteoarthritis of both knees (Acute) 03/19/22 Rheum note Nuclear sclerotic cataract of both eyes (Acute ~03/2022) 03/10/22 [facility] COVID (Acute ~12/15/21) Chest pressure (Acute ~11/2021) 11/07/21 GI note Menopausal hot flushes (Chronic) Onset 2010. stopped ERT 2017. Rx with venlafaxine with satisfactory results. 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 [id number]/[id number] segment NON-dysplastic Larsen's-repeat 5yrs Cervicalgia (Chronic 08/05/12) myofascial syndrome; has limited ROM (flex and ext) Carpal tunnel syndrome of left wrist (Chronic 03/26/16) Chronic idiopathic urticaria (Acute 09/13/14) 07/2014. Admitted to [facility] for IV steroids and antihistamines. 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 Constipation (Acute 06/19/15) Esophagitis (Acute 04/17/17) LA grade A reflux esophagitis Normal stomach. Biopsied Normal examined duodenum. Biopsied Hyperlipidemia (Chronic 01/05/13) Statin Lupus erythematosus (Acute 07/28/17) Treated with Plaquenil. Maculopathy (Acute 03/12/17) secondary to Plaquenil use OU, [facility] Nonproliferative diabetic retinopathy (Chronic 05/02/13) Mild as noted by [facility]. 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) Anxiety and depression (Chronic) Hypertension (Chronic) Hyperkalemia (Acute) Right shoulder pain (Acute) 09/2020 injection w/Kenalog,Lidocaine and Bupivacaine @ [facility] Depression (Chronic) Rotator cuff tear, right (Acute) Tendinitis of long head of biceps brachii of both shoulders (Acute) Acute exacerbation of chronic obstructive pulmonary disease (Acute) Current smoker (Acute) Low magnesium level (Acute) Electrolyte abnormality (Acute) Right wrist tendinitis (Acute) Medical History (Updated 09/13/24 @ 14:40 by BASSAM Joyner) Abnormal liver function (~08/2022) Hx of systemic lupus erythematosus (SLE) History of lupus Abnormal blood chemistry CAIN (dyspnea on exertion) Muscle strain Fall Gouty arthritis of left great toe Carpal tunnel syndrome (08/05/12) Abnormal blood chemistry (08/05/12) Peripheral vertigo (08/05/12) Cervicalgia (08/05/12) Abnormal mammogram of right breast (12/11/15) Diabetes mellitus (06/19/15) Leiomyoma (06/29/15) Shingles 2018. Right lower lobe pneumonia Surgical History H/O endoscopy (~11/12/22) Hx of endoscopy (~11/29/21) 05/02/22-[facility] Trigger middle finger of right hand Depo-Medrol injection: 04/26/2021 S/P Release: 08/08/4043 laryngoscopy (08/09/12) Dr. [place] Ligation of fallopian tube Tonsillectomy R knee surgery at child; [place] Partial thyroidectomy Vaginal hysterectomy (~2002) with unilateral R oophorectomy. Tooth extraction (~2014) 14 Teeth Extracted, dentures October 2014 Carpal tunnel release, R, 2011 Biopsy, Soft Tissue (12/10/16) R dorsal arm Dr Adams-[facility] derm Family History Mother Mental disorder Anxiety on Lorazepam Aneurysm Sister Osteoarthritis Severe; thumb rebuilt and elbow Maternal Grandfather , Colon cancer Personal history of malignant neoplasm Social History Smoking/Tobacco Use Status: Current every day Tobacco Type: cigarettes Smoking packs per day: 0.5 Smoking cigarettes per day: 10.0 Quit status: not considering quitting Counseling given: provider counseling Smoking risk assessment performed?: Yes Alcohol Intake: current Alcohol Intake frequency: 3 or more drinks per day Alcohol type: beer Counseling given: Yes ( offered to help pt find counseling but she decines) Drug use: Never Substance use type: does not use Details: alcohol: t-7 Adopted: No Foster care: No Household members: spouse and other Details: H-Ed. 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 Current gender identity: other What is your relationship status?: How often do you talk on the phone with friends or family?: three or more times per week Panel score (0-1 are the most socially isolated patients): 2 What type of physical activity do you participate in: walking Duration: 30-45 minutes/day Frequency: 5-6 times per week Seatbelt use: always Working smoke detector in home: Yes Fire extinguisher in home: Yes Carbon monox detector in home: Yes Do you feel safe at home: Yes Do you feel safe in your relationship?: Yes History History 4 Para Hx # Term Pregnancies 3 Multiple births Hx # Pregnancies Ectopic pregnancies AB induced Hx Number of Living Children AB spontaneous
--- NOTE | 2024-09-13 12:45 | DI.CT_ITS ---
Exam(s) CT LUMBAR SPINE RECONS CT RENAL COLIC WO EXAM: CT RENAL COLIC WO and CT lumbar spine recons CLINICAL HISTORY: L flank pain. TECHNIQUE: Imaging Protocol: Axial computed tomography images with coronal and sagittal reformatted images were created and reviewed. COMPARISON: CT ABD PELVIS WO CONTRAST from 04/10/[address] LUMBAR SPINE RECONS from 09/13/2024 FINDINGS: ABDOMEN: Lung Bases: Normal where visualized. Liver: Normal density. No measurable mass. Gallbladder and biliary tract: The gallbladder is contracted. No stones or biliary ductal dilatation is seen. Pancreas: Normal density, no abnormal calcifications or inflammatory process. Spleen: Normal. Kidneys: Normal size, contour and axis.No radiodense stones or obstructive uropathy. No masses seen. Vascular calcifications are seen. Adrenal glands: No mass is seen. Lymph nodes: Within normal limits. Abdominal Aorta: Abdominal portion non-dilated. There is moderately severe atherosclerotic calcificat ion particularly of the superior mesenteric artery, renal arteries and aorta. PELVIS: Bladder:Urinary bladder is incompletely distended but grossly unremarkable. No bladder stones are se en. Bowel: No obstruction or bowel wall thickening. No evidence of appendicitis. Peritoneal cavity: No ascites, collection or mesenteric inflammatory response. No free air. Reproductive organs: Status post hysterectomy. Bones: Within normal limits. Soft Tissues: Within normal limits. CT reconstructions of the lumbar spine: There are no acute fractures or subluxations in the lumbar sp ine. Age-appropriate degenerative changes are seen in the lumbar spine. There is no significant hardik tral spinal canal or neural foraminal stenosis present. There are mild diffuse disc bulges at L3-4 a nd L4-L5. No large focal disc herniation is seen. IMPRESSION: 1. No evidence of nephrolithiasis or hydronephrosis. 2. No acute abdominal or pelvic process. 3. Extensive atherosclerosis is present particularly involving the superior mesenteric artery, the re nal arteries and abdominal aorta. 4. No acute fracture or subluxation in the lumbar spine. No large disc herniation or significant hardik tral spinal canal or neural foraminal stenosis is seen in the lumbar spine. RADIATION DOSE DELIVERED: Total DLP DATA REPOSITORY: All CT scans at this facility are submitted to the National Radiology Data Registry (NRDR) Dose Index Registry (DIR) with the [employer] (ACR). RADIATION OPTIMIZATION: All CT scans at this facility use at least one of these dose optimization te chniques: automated exposure control; mA and/or kV adjustment per patient size (includes targeted exa ms where dose is matched to clinical indication); or iterative reconstruction.
[2024-09-13 13:15] LABS: Bilirubin Negative (Negative); Blood Negative (Negative); Clarity Clear (Clear); Glucose Negative (Negative); Ketones Negative (Negative); Leukocyte Esterase Negative (Negative); Nitrite Negative (Negative); Urobilinogen 0.2 mg/dL (Up to 0.2)
[2024-09-13 13:37] LABS: Bacteria Few HPF (Negative); C & S Indicated? No; Casts Negative LPF (Negative); Crystals Negative HPF (Negative); Epithelial Cells Moderate HPF (Negative); Mucus Trace (Negative); RBC 0-2 HPF (0-2); WBC 0-2 HPF (0-5)
[2024-09-13 14:49] VITALS: BP 148/78; PULSE 81; RESP 18; TEMP 36.6; O2SAT 96
[2024-09-13] MEDS: Lidocaine 5% Patch 1 PATCH TP (14:50)
== END 2024-09-13 14:52 | disposition home or self-care (01) ==
PROVIDERS: Emergency Provider Physician Assistant; PCP Nurse Practitioner
DX: E87.1 Hypo-osmolality and hyponatremia (principal); E83.42 Hypomagnesemia; E11.10 Type 2 diabetes mellitus with ketoacidosis without coma; R79.89 Other specified abnormal findings of blood chemistry; M32.9 Systemic lupus erythematosus, unspecified; F17.210 Nicotine dependence, cigarettes, uncomplicated; Z79.82 Long term (current) use of aspirin; Z79.4 Long term (current) use of insulin
CPT/HCPCS: 80053; 83690; 99284; 74176; 80329; 81003; 81015; 85025

== ENCOUNTER 2024-09-16 15:16 | Emergency (ER) | payer OTHER, SELFPAY ==
[2024-09-16] VITALS (30 sets, daily range): BP systolic 134–179; BP diastolic 29–81; PULSE 53–81; RESP 12–20; TEMP 36.5; O2SAT 96–99
--- NOTE | 2024-09-16 15:40 | ED.GENADUL_ITS ---
Discharge Plan Disposition Patient Disposition: Against Medical Advice Condition: Stable Discharge Details Clinical Impression: Acute hyponatremia, Hypomagnesemia, Diabetes mellitus with ketosis, Elevated troponin Primary Care Provider: Imelda Beckman ED Provider: Lexi Gross Recommendations for Follow Up Recommended tests to be ordered by follow up provider: Nicky QUEEN within 3-5 days Home Meds and New Rx's Prescriptions: No Action nystatin 100,000 unit/gram cream 1 applic TP TID Qty: 15 1RF Lac-Hydrin Five 5 % lotion 1 applic TP BID Qty: 226 0RF Rx Instructions: Apply to cracked toes BID and PRN betamethasone dipropionate 0.05 % cream 1 applic topical BID PRN (Reason: eczma bilateral foreams) Qty: 45 1RF (DME) OneTouch Ultra Test Strip 1 ea Miscellaneous 6 X A DAY Qty: 540 3RF Rx Instructions: DX: 250.91/T1DM Test QID and PRN ipratropium-albuterol 0.5 mg-3 mg(2.5 mg base)/3 mL solution for nebulization 3 ml inhalation QID PRN (Reason: wheezing) Qty: 180 0RF omeprazole 40 mg capsule,delayed release(DR/EC) 40 mg PO DAILY Qty: 90 3RF venlafaxine 75 mg capsule,extended release 24hr 75 mg PO DAILY Qty: 90 4RF albuterol sulfate 90 mcg/actuation HFA aerosol inhaler 2 puff Inhalation Q6H PRN Qty: 3 3RF Rx Instructions: dx: reactive airway DISPENSE WITH SPACER lisinopril 10 mg tablet 10 mg PO DAILY Qty: 90 1RF acetaminophen [Tylenol] 325 MG tablet 325 mg PO PRN aspirin [Aspir-81] 81 MG tablet,delayed release (DR/EC) 81 mg PO DAILY fexofenadine 180 MG tablet 180 mg PO BID Rx Instructions: Dr. Craven, Allergy budesonide-formoterol [Symbicort] 80-4.5 mcg/actuation HFA aerosol inhaler 2 puff Inhalation BID Qty: 3 Patient Comments: Takes only when needed ibuprofen 800 mg tablet 800 mg PO TID Qty: 90 3RF insulin lispro [Humalog KwikPen Insulin] 100 unit/mL insulin pen See Rx Instructions subcut as directed Qty: 15 0RF Dose Instruction: 2-16u for carb coverage/sliding scale. Dx:250.00 subcut as directed; 2-16u as directed for carb coverage/sliding scale. Dx:250.00 Patient Comments: 3 units gievn to self in DSU Rx Instructions: Takes 5-20U tid with meals for carb coverage and 2-5 U between meals as corrections uses 3 boxes, 5 pens every 90 days MDD 70u MDD 70u (DME) Dexcom Title Processor Misc See Rx Instructions .ROUTE .MEDSUPPLY Qty: 1 Rx Instructions: Per [facility] note dated 08/29/20 cgc insulin glargine [Basaglar KwikPen U-100 Insulin] 100 unit/mL (3 mL) insulin pen 1 unit subcut QPM Rx Instructions: 11/19/20 PER [facility] INCREASE FROM THE 14 UNITS TO 15 UNITS TO GET FASTING BLOOD SUGARS IN THE AM BETWEEN 90-150 insulin lispro [Humalog KwikPen Insulin] 100 unit/mL insulin pen 1 unit subcut TID Patient Comments: 14 units Rx Instructions: 11/19/20 ADD 1 UNIT TO HUMALOG DOSE TO EACH OF MEAL TIME HUMALOG DOSES PER [facility] diclofenac sodium [Voltaren Arthritis Pain] 1 % gel 2 g topical QID PRN Rx Instructions: 12/12/20-apply to hand,shoulders,etc-LH (DME) pen needle, diabetic [BD Ultra-Fine Mini Pen Needle] 31 gauge x 3/16 needle See Rx Instructions .ROUTE .COMPLEX Qty: 540 3RF Dose Instruction: USE DIRECTED TO ADMINISTER INSULIN Rx Instructions: USE DIRECTED TO ADMINISTER INSULIN magnesium oxide 400 mg magnesium capsule 400 mg PO DAILY Qty: 90 3RF atorvastatin 40 mg tablet 40 mg PO DAILY Rx Instructions: incr 03/11/24 levothyroxine [Synthroid] 112 mcg tablet 112 mcg PO DAILY Discharge Instructions Instructions: Hyponatremia Additional Instructions: You were seen in the emergency department today for evaluation of nausea, high blood sugar and dehydration, as well as left flank pain. In our department you had a full physical examination performed, and had laboratory studies which were concerning for a very low sodium level of 121, which increased to 124 on our recheck. Your magnesium was also low and this was replaced through your IV. You do not have diabetic ketoacidosis, but I do note some ketosis that could be related to your dehydration. You had an elevation of your cardiac enzymes that was stable but still abnormal for your age and gender. We recommended admission to the hospital for careful correction of your sodium and trending of your troponins, and at this time you have refused care AGAINST MEDICAL ADVICE. You are always welcome to change your mind and return for reevaluation. To minimize risk, I recommend that you call your primary care provider's office and schedule a follow-up appointment for the next few days, and I recommend that they check your laboratory studies again at that time. Please follow-up with your primary care provider in the next few days to discuss this visit and any symptoms that change, worsen, or persist. Thank you for allowing us to be part of your care. HPI General Mode of arrival: ambulatory . Date/Time Provider Initiated Documentation: 09/16/24 15:18 . Limitations to Documentation: no limitations . Information obtained by: patient and old records reviewed . HPI Narrative: This is a 64-year-old female patient with a past medical history significant for type 1 diabetes, history of Sjogren's syndrome, hypothyroidism, lupus, COPD, and gastroparesis, sent here from her outpatient clinic for evaluation of vomiting, dehydration, and concern for DKA. The patient reports that she was seen here on the for some left flank and back pain, had a CT scan that showed some lumbar disc protrusions, and was discharged home on multimodal pain management. She states that she has been utilizing these medications without significant improvement in her pain. She is concerned that this pain is due to something other than the lumbar disks due to the location of pain somewhat higher up in the flank region. She had a negative urinalysis for infection or hematuria, and her CT did not reveal any renal stones at that time. Her last several days she has had nausea with vomiting, denies diarrhea or fever. She has had difficulty maintaining oral intake, has still been utilizing her insulin (14 units long-acting, sliding scale), and her blood glucose at the time that she was seen in the outpatient environment was noted to be in the 300s. The patient reports that she was having difficulty passing urine, and was sent here for DKA evaluation. She reports her last dose of Tylenol was this morning, last ibuprofen around lunchtime. Related Data Home Medications ?Medication ?Instructions ?Recorded ?Confirmed acetaminophen 325 mg tablet 325 mg PO PRN 06/29/12 (Tylenol) aspirin 81 mg tablet,delayed 81 mg PO DAILY 06/29/12 0 09/16/24 release (Aspir-) fexofenadine 180 mg tablet 180 mg PO BID 07/21/1409/04 ammonium lactate 5 % lotion 1 applic topical BID #226 grams 04/21/18 09/16/24 (Lac-Hydrin Five) nystatin 100,000 unit/gram topical 1 applic topical TI D rash left 06/07/18 09/16/24 cream breast #15 grams budesonide-formoterol HFA 80 2 puff inhalation BID ##3 12/14/18 09/16/24 mcg-4.5 mcg/actuation aerosol inhaler (Symbicort) ibuprofen 800 mg tablet 800 mg PO TID #90 tabs 12/2009/16/24 Humalog KwikPen Insulin 100 See Rx Instructions subcut as 02/27/20 09/16/24 unit/mL subcutaneous (insulin directed #15 mL lispro) betamethasone dipropionate 0.05 % 1 applic topical BID PRN eczma 04/19/20 09/16/24 topical cream bilateral foreams #45 grams blood-glucose,electronic wirer,cont #1 ea 09/07/20 09/16/24 (Dexcom Title Processor) OneTouch Ultra Test (blood sugar #540 strips 11/08/20 09/16/24 diagnostic) insulin glargine 100 unit/mL (3 1 unit subcut QPM 04/2609/16/24 mL) subcutaneous pen (Basaglar KwikPen U-100 Insulin) insulin lispro 100 unit/mL 1 unit subcut TID 12/05/20 09/16/24 subcutaneous pen (Humalog KwikPen (U-100) Insulin) diclofenac sodium 1 % topical gel 2 g topical QID PRN 12/12/20 09/16/24 (Voltaren Arthritis Pain) ipratropium 0.5 mg-albuterol 3 mg 3 ml inhalation QID PRN wheezing 12/20/20 09/16/24 (2.5 mg base)/3 mL nebulization #180 mL soln pen needle, diabetic 31 gauge x #540 ea 08/18/2209/16 (BD Ultra-Fine Mini Pen Needle) magnesium oxide 400 mg PO DAILY #90 caps 09/16/24 albuterol sulfate 90 mcg/actuation 2 puff inhalation Q 6H PRN ##3 01/18/24 09/16/24 aerosol inhaler lisinopril 10 mg tablet 10 mg PO DAILY #90 tabs 01/0409/16/24 levothyroxine 112 mcg tablet 112 mcg PO DAILY 04/18/24 09/16/24 (Synthroid) omeprazole 40 mg capsule,delayed 40 mg PO DAILY #90 ca ps 06/01/24 09/16/24 release venlafaxine 75 mg capsule,extended 75 mg PO DAILY #90 caps 06/01/24 09/16/24 release 24 hr atorvastatin 40 mg tablet 40 mg PO DAILY 06/02/2409/04 Previous Rx's ?Medication ?Instructions ?Recorded ammonium lactate 5 % lotion 1 applic topical BID #226 grams 04/21/18 (Lac-Hydrin Five) nystatin 100,000 unit/gram topical 1 applic topical TI D rash left 06/07/18 cream breast #15 grams ibuprofen 800 mg tablet 800 mg PO TID #90 tabs 12/20 Humalog KwikPen Insulin 100 See Rx Instructions subcut as 02/27/20 unit/mL subcutaneous (insulin directed #15 mL lispro) betamethasone dipropionate 0.05 % 1 applic topical BID PRN eczma 04/19/20 topical cream bilateral foreams #45 grams OneTouch Ultra Test (blood sugar #540 strips 11/08/20 diagnostic) ipratropium 0.5 mg-albuterol 3 mg 3 ml inhalation QID PRN wheezing 12/20/20 (2.5 mg base)/3 mL nebulization #180 mL soln pen needle, diabetic 31 gauge x #540 ea 08/18/2206/19 (BD Ultra-Fine Mini Pen Needle) magnesium oxide 400 mg PO DAILY #90 caps albuterol sulfate 90 mcg/actuation 2 puff inhalation Q 6H PRN ##3 01/18/24 aerosol inhaler lisinopril 10 mg tablet 10 mg PO DAILY #90 tabs 01/04 07/28 omeprazole 40 mg capsule,delayed 40 mg PO DAILY #90 ca ps 06/01/24 release venlafaxine 75 mg capsule,extended 75 mg PO DAILY #90 caps 06/01/24 release 24 hr Allergies Allergy/AdvReac Type Severity Reaction Status Date / Time hydroxychloroquine Allergy Severe hives-01/23 Verified 09/16/24 16:03 17 hydrochlorothiazide (From Allergy Intermediate Hives Verified 09/16/24 16:03 HydroDiuril) Penicillins Allergy Intermediate Hives Verified 09/16/24 16:03 gabapentin (From Neurontin) AdvReac Severe Pt. states Verified 09/16/24 16:03 medication messed up her head. General Stated Complaint: Diabetes BRIANNA: 3 Exam Narrative Exam Narrative: Gen: Awake and alert, in no apparent distress HEENT: Non-icteric sclera Neck: Supple Lungs: No apparent respiratory distress, normal respiratory effort. Lung sounds clear and equal bilaterally without wheezes, rhonchi, rales CV: Appears well perfused, heart with regular rate and rhythm, strong distal pulses, no murmurs auscultated Abdomen: Non-distended, soft, nontender to palpation without rigidity, rebound, or guarding MSK: Moves 4 extremities without apparent limitation in ROM. The patient has tenderness overlying the left flank with no overlying skin changes, no midline back pain Skin: Visualized skin without rashes, cyanosis. Neuro: Normal Gait, no obvious focal deficits or facial asymmetry. Speaks in full, clear sentences. Psych: Appropriate for situation. Course Vital Signs Vital signs: Vital Signs Temperature 36.5 C 09/16/24 15:17 Pulse 81 09/16/24 15:17 Respiratory Rate 20 09/16/24 15:17 Blood Pressure 146/80 H 09/16/24 15:17 Pulse Oximetry 96 09/16/24 15:17 Temperature 36.5 C 09/16/24 15:29 Temperature Source Oral 09/16/24 15:29 Pulse 81 09/16/24 15:29 Respiratory Rate 20 09/16/24 15:29 Blood Pressure 146/80 H 09/16/24 15:29 Blood Pressure Position Sitting 09/16/24 15:29 Pulse Oximetry 96 09/16/24 15:29 Oxygen Delivery Method Room Air 09/16/24 15:29 Oxygen Flow Rate 0 09/16/24 15:29 Pain Level 0 09/16/24 15:29 Medical Decision Making This is a 64-year-old female patient presenting for evaluation of back pain, vomiting, and high blood glucose in the setting of poor oral intake. My differential includes but is not limited to diabetic ketoacidosis, considered HHS and euglycemic DKA, metabolic electrolyte derangement, kidney injury, dehydration, anemia. I considered gastroenteritis and gastritis, urinary tract infection. Regarding the patient's flank and back pain, I am most concerned for musculoskeletal etiology in this patient with no neurodeficits, incontinence, and who has had a reassuring workup within the last few days. It is reasonable to provide the patient with a redose of her Tylenol as well as a dose of Toradol, and Zofran for her nausea management. I will obtain laboratory studies to include CBC, CMP, magnesium, troponin, VBG, and will provide her with a liter of lactated Ringer's for rehydration. We will obtain a urinalysis to evaluate for ketones and infection. - I reviewed the patient's laboratory studies, which reveal no leukocytosis, anemia, or thrombocytopenia. The chemistry panel is most notable for a hyponatremia at 124, normal potassium. Creatinine 1.1 today, glucose downtrending now at 199. Initial troponin elevated to 56, EKG obtained and shows a normal sinus rhythm without evidence of ischemia. VBG without evidence of acidosis, making the urinalysis does show trace ketones and I am suspicious for dehydration and ketosis without acidosis. No UTI. After fluids and magnesium, I rechecked the patient's troponin and sodium (slightly delayed due to difficulties with redrawing and IV access), and note that her troponin is stable but still elevated above our upper limit of normal, sodium now 124. Given the severe hyponatremia evidence of dehydration and elevated troponin without evidence of active ischemia, I recommended that this patient be admitted to the hospital for careful correction of her electrolytes. At this time, the patient states that she does not want to stay in the hospital, and AGAINST MEDICAL ADVICE decision conversation was had, the patient demonstrates capacity to refuse care, and understands the risks and benefits of doing so. I did recommend that she reach out to her outpatient providers to have her electrolytes and troponin checked in the next few days to ensure that she is not over correcting, and discussed return precautions with her including alteration in mental status, seizure, and inability to tolerate oral intake. The patient was hemodynamically stable at the time of her leaving the hospital. Lexi Gross MD [facility] All Active Problems (Updated 09/16/24 @ 19:04 by Lexi Gross MD) Elevated troponin (Acute) Diabetes mellitus with ketosis (Acute) Hypomagnesemia (Acute) Acute hyponatremia (Acute) Dehydration, moderate (Acute) Vomiting bile (Acute) Bulging lumbar disc (Acute) Nail dystrophy (Acute) Plantar fasciitis of left foot (Acute) 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 (Acute) 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 (Acute) Neoplasm of unspecified behavior of bone, soft tissue, and skin (Acute) [facility] Derm note 01/22/23 Trigger finger, left ring finger (Acute) Vitamin D deficiency (Acute) Hiatal hernia (Chronic ~04/2022) per upper endoscopy report [facility]-- 2 CM Tubular adenoma of colon (Acute ~03/2022) cecal polyp-fragments of TA ascending polyp-fragments of sessile serrated polyp/adenoma Fatty liver (Acute ~04/2022) 04/08/22 [facility] GI Abnormal liver function tests (Acute ~04/2022) 04/08/22 GI Secondary Sjogren's syndrome (Acute) 03/19/22 Rheum note Osteoarthritis of both knees (Acute) 03/19/22 Rheum note Nuclear sclerotic cataract of both eyes (Acute ~03/2022) 03/10/22 [facility] COVID (Acute ~12/15/21) Chest pressure (Acute ~11/2021) 11/07/21 GI note Menopausal hot flushes (Chronic) Onset 2010. stopped ERT 2017. Rx with venlafaxine with satisfactory results. 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 [id number]-[id number] segment NON-dysplastic Larsen's-repeat 5yrs Cervicalgia (Chronic 08/05/12) myofascial syndrome; has limited ROM (flex and ext) Carpal tunnel syndrome of left wrist (Chronic 03/26/16) Chronic idiopathic urticaria (Acute 09/13/14) 07/2014. Admitted to [facility] for IV steroids and antihistamines. Seeing jig borer. Constipation (Acute 06/19/15) Esophagitis (Acute 04/17/17) LA grade A reflux esophagitis Normal stomach. Biopsied Normal examined duodenum. Biopsied Hyperlipidemia (Chronic 01/05/13) Statin Lupus erythematosus (Acute 07/28/17) Treated with Plaquenil. Maculopathy (Acute 03/12/17) secondary to Plaquenil use [facility], [facility] Nonproliferative diabetic retinopathy (Chronic 08/05/12) Mild as noted by [facility]. 07/29/24 F/U with [facility] Tension headache (Chronic 08/05/12) Depressive disorder (Acute 04/14/13) Gastroparesis (Acute) Alcohol abuse (Chronic) Hypothyroidism (Chronic) Postablative Hyperkalemia (Acute) MCTD (mixed connective tissue disease) (Acute) Lung nodule, solitary (Acute 03/18/20) Right upper lobe 03/18/20 - Not seen 06/14/21 Left upper lobe 06/14/21 COPD (chronic obstructive pulmonary disease) (Chronic) Colon cancer screening (Acute ~03/2022) [facility] Diabetic gastroparesis (Chronic) Diabetes mellitus type 1 with complications (Chronic) Anxiety and depression (Chronic) Hypertension (Chronic) Hyperkalemia (Acute) Right shoulder pain (Acute) 09/2020 injection w/Kenalog,Lidocaine and Bupivacaine @ [facility] [place] [facility] Depression (Chronic) Rotator cuff tear, right (Acute) Tendinitis of long head of biceps brachii of both shoulders (Acute) Acute exacerbation of chronic obstructive pulmonary disease (Acute) Current smoker (Acute) Low magnesium level (Acute) Electrolyte abnormality (Acute) Right wrist tendinitis (Acute) Medical History (Updated 09/16/24 @ 19:04 by Lexi Gross MD) Abnormal liver function (~08/2022) [facility] of systemic lupus erythematosus (SLE) History of lupus Abnormal blood chemistry CAIN (dyspnea on exertion) Muscle strain Fall Gouty arthritis of left great toe Carpal tunnel syndrome (08/05/12) Abnormal blood chemistry (08/05/12) Peripheral vertigo (08/05/12) Cervicalgia (08/05/12) Abnormal mammogram of right breast (12/11/15) Diabetes mellitus (06/19/15) Leiomyoma (06/29/15) Shingles 2018. Right lower lobe pneumonia Surgical History H/O endoscopy (~11/12/22) DH Hx of endoscopy (~11/29/21) 05/02/22-[facility] Trigger middle finger of right hand Depo-Medrol injection: 04/26/2021 S/P Release: 08/08/4043 laryngoscopy (08/09/12) Dr. Mullins Ligation of fallopian tube Tonsillectomy R knee surgery at child; [place] Partial thyroidectomy Vaginal hysterectomy (~2002) with unilateral R oophorectomy. Tooth extraction (~2014) 14 Teeth Extracted, dentures October 2014 Carpal tunnel release, R, 2010 Biopsy, Soft Tissue (12/10/16) R dorsal arm Dr Adams-[facility] derm Family History Mother Mental disorder Anxiety on Lorazepam Aneurysm Sister Osteoarthritis Severe; thumb rebuilt and elbow Maternal Grandfather , Colon cancer Personal history of malignant neoplasm Social History Smoking/Tobacco Use Status: Current every day Tobacco Type: cigarettes Smoking packs per day: 0.5 Smoking cigarettes per day: 10.0 Quit status: not considering quitting Counseling given: provider counseling Smoking risk assessment performed?: Yes Alcohol Intake: current Alcohol Intake frequency: a few times a week Alcohol type: beer Counseling given: Yes ( offered to help pt find counseling but she decines) Drug use: Never Substance use type: does not use Adopted: No Foster care: No Household members: spouse and other Details: H-Ed. 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 Current gender identity: other What is your relationship status?: How often do you talk on the phone with friends or family?: three or more times per week Panel score (0-1 are the most socially isolated patients): 2 What type of physical activity do you participate in: walking Duration: 30-45 minutes/day Frequency: 5-6 times per week Seatbelt use: always Working smoke detector in home: Yes Fire extinguisher in home: Yes Carbon monox detector in home: Yes Do you feel safe at home: Yes Do you feel safe in your relationship?: Yes History History 4 Para Hx # Term Pregnancies 3 Multiple births Hx # Pregnancies Ectopic pregnancies AB induced Hx Number of Living Children AB spontaneous
[2024-09-16] MEDS: Ketorolac 15 MG/ML VIAL IVP (15:57)
[2024-09-16] MEDS: Lactated Ringers 1,000 ML 1000 ML IV (15:57)
[2024-09-16] MEDS: Ondansetron 4 MG/2 ML VIAL IVP (15:57)
[2024-09-16] MEDS: Acetaminophen 500 MG TAB 1000 MG PO (15:57)
[2024-09-16 15:58] LABS: BE (Venous) -2 mmol/L (-2-3); HCO3 (Venous) 23 mmol/L (23-28); Lactate 1.5 mmol/L (<or=2.0); O2 Sat (Venous) 98 %; TCO2 (Venous) 21 mmol/L (24-29); pCO2 (Venous) 35 mmHg (41-51); pH (Venous) 7.42 (7.31-7.41); pO2 (Venous) 89 mmHg
[2024-09-16 15:59] LABS: Abs Immature Grans 0.02 10^3/uL (0.0-0.06); Absolute Basophil Count 0.01 10^3/uL (0.0-0.2); Absolute Lymphocyte Count 1.08 10^3/uL (1.2-3.4); Absolute Monocyte Count 0.58 10^3/uL (0.1-0.8); Absolute Neutrophil Count 3.67 10^3/uL (1.2-6.7); Basophils % 0.2 %; HCT 35.6 % (36.0-46.0); HGB 12.4 g/dL (11.2-15.7); Immature Grans % 0.4 %; Lymphocytes % 20.1 %; MCH 29.8 pg (27.0-33.0); MCHC 34.8 % (32.0-36.0); MCV 86 fL (80-95); MPV 8.9 fL (8.0-11.0); Monocytes % 10.8 %; Neutrophils % 68.5 %; Platelet Count 321 10^3/uL (130-400); RBC 4.16 10^6/uL (3.93-5.22); RDW 11.4 % (11.7-14.6); RDW-SD 35.1 fL; WBC 5.36 10^3/uL (4.4-10.8)
--- NOTE | 2024-09-16 16:15 | RT.EKG_ITS ---
APPROVED REPORT Exam: Resting ECG Reason for Exam: Elevated trop Patient Location: E HR:59 bpm ECG Measurements Heart Rate 59 AXIS CA 178 P 79 QRSd 88 QRS 56 QT 451 T 54 QTc 448 Conclusion Sinus bradycardia, rate 59 No interval abnormalities No STEMI No significant changes from priors
[2024-09-16 16:21] LABS: ALT 36 U/L (14-59); AST 34 U/L (15-37); Albumin 3.5 g/dL (3.4-5.0); Alkaline Phosphatase 214 U/L (46-116); Anion Gap 10.2 mmol/L (3-11); BUN 19 mg/dL (7-18); Bilirubin, Total 0.4 mg/dL (0.2-1.0); CO2 23.8 mmol/L (21.0-32.0); CREATININE 1.2 mg/dL (0.55-1.02); Calcium 8.8 mg/dL (8.5-10.1); Chloride 87 mmol/L (98-107); Estimated GFR 51.18 (mL/min/1.73m2); Glucose 199 mg/dL (74-106); Lipase 39 U/L (<78); Magnesium 1.5 mg/dL (1.8-2.4); Potassium 4.1 mmol/L (3.5-5.1); Total Protein 7.1 g/dL (6.4-8.2)
[2024-09-16 16:26] LABS: Sodium 121 mmol/L (136-145); Troponin I 56 ng/L (<or=51)
[2024-09-16] MEDS: MAGNESIUM SULFATE 2 GM/50 ML BAG IV_INF (16:54)
[2024-09-16 18:18] LABS: Bilirubin Negative (Negative); Blood Negative (Negative); Clarity Clear (Clear); Glucose 100 mg/dL (Negative); Ketones Trace mg/dL (Negative); Leukocyte Esterase Negative (Negative); Nitrite Negative (Negative); Specific Gravity 1.015 (1.005-1.025); Urobilinogen 0.2 mg/dL (Up to 0.2)
[2024-09-16 18:20] LABS: Anion Gap 8.3 mmol/L (3-11); BUN 18 mg/dL (7-18); CO2 27.7 mmol/L (21.0-32.0); CREATININE 1.1 mg/dL (0.55-1.02); Calcium 9.2 mg/dL (8.5-10.1); Chloride 88 mmol/L (98-107); Estimated GFR 56.81 (mL/min/1.73m2); Glucose 109 mg/dL (74-106); Potassium 4.3 mmol/L (3.5-5.1)
[2024-09-16 18:25] LABS: Sodium, Urine 14 mmol/L
[2024-09-16 18:28] LABS: Sodium 124 mmol/L (136-145)
[2024-09-16 18:34] LABS: Troponin I 56 ng/L (<or=51)
[2024-09-16 18:40] LABS: RBC Negative HPF (0-2)
[2024-09-16 18:41] LABS: Bacteria Moderate HPF (Negative); C & S Indicated? No; Casts Negative LPF (Negative); Crystals Negative HPF (Negative); Epithelial Cells Few HPF (Negative); Mucus Negative (Negative); Other Cells Few Yeast (Negative)
== END 2024-09-16 19:12 | disposition left against medical advice (07) ==
PROVIDERS: Emergency Provider Emergency Medicine; PCP Nurse Practitioner
DX: E87.1 Hypo-osmolality and hyponatremia (principal); E83.42 Hypomagnesemia; E10.10 Type 1 diabetes mellitus with ketoacidosis without coma; R79.89 Other specified abnormal findings of blood chemistry; M32.9 Systemic lupus erythematosus, unspecified; R00.1 Bradycardia, unspecified; Z79.4 Long term (current) use of insulin; Z79.82 Long term (current) use of aspirin; F17.210 Nicotine dependence, cigarettes, uncomplicated
CPT/HCPCS: 36415; 80048; 80053; 82805; 82962; 83690; 93005; 96361; 96365; 96366; 96375; 99284; 81003; 81015; 83605; 83735; 84300; 84484; 85025; 93010; J1885; J2405; J3475

== ENCOUNTER 2024-09-21 10:36 | Outpatient (CLI) | payer OTHER, SELFPAY ==
[2024-09-21 12:12] LABS: Anion Gap 10.6 mmol/L (3-11); BUN 14 mg/dL (7-18); CO2 25.4 mmol/L (21.0-32.0); Calcium 8.8 mg/dL (8.5-10.1); Chloride 92 mmol/L (98-107); Glucose 288 mg/dL (74-106); Magnesium 1.5 mg/dL (1.8-2.4); Potassium 4.4 mmol/L (3.5-5.1); Sodium 128 mmol/L (136-145); Troponin I 19 ng/L (<or=51)
== END 2024-09-21 10:37 | disposition home or self-care (01) ==
LOC: LBO 10:37
PROVIDERS: Physician Assistant; PCP Nurse Practitioner; Visit Provider Nurse Practitioner Family
DX: R79.0 Abnormal level of blood mineral (principal); R79.89 Other specified abnormal findings of blood chemistry; E87.1 Hypo-osmolality and hyponatremia; M54.9 Dorsalgia, unspecified
CPT/HCPCS: 36415; 80048; 80053; 83735; 84484; 85025

== ENCOUNTER 2024-09-30 12:56 | Outpatient (CLI) | payer OTHER, SELFPAY ==
[2024-09-30 13:46] LABS: BUN 13 mg/dL (7-18); CREATININE 1.1 mg/dL (0.55-1.02); Calcium 9.6 mg/dL (8.5-10.1); Chloride 95 mmol/L (98-107); Estimated GFR 56.81 (mL/min/1.73m2); Glucose 163 mg/dL (74-106); Potassium 4.8 mmol/L (3.5-5.1); Sodium 130 mmol/L (136-145)
== END 2024-09-30 12:57 | disposition home or self-care (01) ==
LOC: LBO 12:56
PROVIDERS: PCP Nurse Practitioner; Visit Provider Nurse Practitioner Family
DX: E87.1 Hypo-osmolality and hyponatremia (principal)
CPT/HCPCS: 36415; 80048

== ENCOUNTER 2024-10-14 11:46 | Outpatient (CLI) | payer OTHER, SELFPAY ==
[2024-10-14 11:34] LABS: Potassium 5.4 mmol/L (3.5-5.1)
== END 2024-10-14 11:47 | disposition home or self-care (01) ==
LOC: LBO 11:46
PROVIDERS: PCP Nurse Practitioner; Visit Provider Family Medicine
DX: E87.5 Hyperkalemia (principal)
CPT/HCPCS: 36415; 84132

== ENCOUNTER 2024-10-28 14:35 | Outpatient (CLI) | payer OTHER, SELFPAY ==
[2024-10-28 15:31] LABS: Potassium 5.3 mmol/L (3.5-5.1)
== END 2024-10-28 14:36 | disposition home or self-care (01) ==
LOC: LBO 14:35
PROVIDERS: PCP Nurse Practitioner; Visit Provider Family Medicine
DX: E87.5 Hyperkalemia (principal)
CPT/HCPCS: 36415; 84132

== ENCOUNTER 2025-01-09 03:29 | Outpatient (CLI) | payer OTHER, SELFPAY ==
[2025-01-09 12:43] LABS: Calculated LDL 91 mg/dL (<100); Cholesterol 247 mg/dL (<200); HDL Cholesterol 137 mg/dL (>or=50); Triglyceride 96 mg/dL (<150)
== END 2025-01-09 03:30 | disposition home or self-care (01) ==
LOC: LBO 03:29
PROVIDERS: Absent Provider Nurse Practitioner Family; PCP Nurse Practitioner Family; Referring Provider Nurse Practitioner Family; Visit Provider Nurse Practitioner Family
DX: E78.5 Hyperlipidemia, unspecified (principal)
CPT/HCPCS: 36415; 80061

== ENCOUNTER → 2025-02-02 04:00 | Outpatient (CLI) | payer OTHER, SELFPAY ==
--- NOTE | 2025-02-02 13:36 | DI.DEXA_ITS ---
Exam(s) XR DEXA BONE DENSITY W/WO SHEA EXAM: XR DEXA BONE DENSITY W/WO SHEA CLINICAL HISTORY: chronic prednisone, POSTMENOPAUSAL, Z78.0 TECHNIQUE: COMPARISON: CR XR DEXA BONE DENSITY W/WO SHEA from 04/05/2020 FINDINGS: Lateral Spine Image: Unremarkable. No compression deformities identified. Left hip: Total T-Score: -1.7. This compares to -1.3 on the prior examination. Total Z-Score: -0.6 T- and Z-scores: Osteopenia is present. There has been slight progression of disease compared to the prior examination. There is no evidence of osteoporosis. Lumbar Spine: Total T-Score: -1.6. This compares to -1.2 on the prior examination. Total Z-Score: 0.0 T- and Z-scores: Findings are consistent with osteopenia. There is no evidence of osteoporosis. IMPRESSION: No evidence of osteoporosis.
== END ==
LOC: DI 04:00
PROVIDERS: PCP Nurse Practitioner Family; Visit Provider Nurse Practitioner Family
DX: Z78.0 Asymptomatic menopausal state (principal); Z13.820 Encounter for screening for osteoporosis
CPT/HCPCS: 77080